=== PATIENT | female | born 1965 | race Caucasian/White ===

== ENCOUNTER → 2025-04-07 | Outpatient (CLI) | payer SELFPAY, OTHER ==
--- OUTSIDE RECORDS SUMMARY | 2025-04-07 06:59 | XMS RPT_ITS | CCD ---
Author Organization [facility] Care Team Providers Care Media Associate Name Role Phone Kashmir, Ritesh Unavailable Unavailable Kashmir, Ritesh Unavailable Unavailable Kashmir, Ritesh Unavailable Unavailable Kashmir, Ritesh Unavailable Unavailable Kashmir, Ritesh Unavailable Unavailable Kashmir, Ritesh Unavailable Unavailable HinesGreg more Unavailable Unavailable Kashmir, Ritesh Unavailable Unavailable Kashmir, Ritesh Unavailable Unavailable HinesGreg more Unavailable Unavailable JANNA TORRES-CEMPERATRIZ Unavailable [phone] DAVON HINES MD Unavailable Ernestina Toney RN Unavailable Unavailable GREG HINES MD Unavailable ORTEGA JURADO MD Unavailable ADALGISAALAINA Unavailable Unavailable DANIS HAYES Unavailable Unavailable Shruthi Hayes Unavailable Unavailable Sebastian HAYES MD Unavailable MARILYN JOHNSON Unavailable Unavailable Марина Perez Unavailable Unavailable ISABELLA NAVA MD Unavailable Micah Nava Unavailable Unavailable Holley TAYLOR, Erica Unavailable UnavailCHET Spence Unavailable Unavailable Thania TAYLOR, Miranda Unavailable Unavailable Unavailable Unavailable JANNA TORRES-EMPERATRIZ Kate Unavailable Unav ailable DAVON HINES Consulting Unavailable DUNCAN PABON MD Attending UnavailDUNCAN Spicer MD Primary Care UnavailDUNCAN Spicer MD Admitting Unavailabl e PROVIDER, UNKNOWN Consulting Unavailable PROVIDER, UNKNOWN Consulting Unavailable PROVIDER, UNKNOWN Consulting Unavailable Estefanía RESTREPO, Dr. Corona Attending Provider Deangelo RESTREPO, Dr. Giang Primary Care Provider [phone] Deangelo RESTREPODr. Giang Referring Provider Davon Hines Primary Care Unavailable Davon Hines Referring Unavailable Cj José Attending Unavailable Davon Hines Primary Care Unavailable Cj José Attending Unavailable Cj José Referring Unavailable Allergies Allergy Classification Reported Allergen(s) Allergy Type Date of Onset Reaction(s) Facility (13 sources) Acetaminophen / oxyCODONE Drug Allergy Nausea, Vomiting [facility] (13 sources) Wasp Stings (Renamed from Insect Stings) Swelling [facility] (1 source) Acetaminophen / oxyCODONE Drug Allergy [facility] (1 source) Acetaminophen Drug Allergy 5 Nausea/Vom/Diar [facility] (1 source) oxyCODONE Drug Allergy 5 Nausea/Vom/Diar [facility] (1 source) venom-wasp Allergy to substance 5 Angioedema [facility] (1 source) Acetaminophen Drug Allergy 5 [facility] (1 source) oxyCODONE Drug Allergy 5 [facility] (1 source) venom-wasp Drug allergy (disorder) 5 [facility] Medications Current Medications Medication Drug Class(es) Dates Sig (Normalized) Sig (Original) aspirin 81 mg delayed release oral tablet (14 sources) Platelet Aggregation Inhibitor, Nonsteroidal Anti-inflammatory Drug Start: 02-05-2025 take 1 tablet by mouth once daily Aspirin (Adult Aspirin Regimen) 81 mg tablet,delayed release (DR/EC) Active 81 mg PO daily February 05, 2025 12:00am carvedilol 6.25 mg oral tablet (1 source) alpha-Adrenergic Kimberly, beta-Adrenergic Kimberly Start: 02-05-2025 take 1 tablet by mouth twice daily at mealtime Carvedilol 6.25 mg tablet Active 6.25 mg PO TWICE A DAY February 05, 2025 12:00am must administer with a meal/food empagliflozin 25 mg oral tablet (1 source) Sodium-Glucose Cotransporter 2 Inhibitor Start: 02-05-2025 take 1 tablet by mouth once daily in the morning Empagliflozin (Jardiance) 25 mg tablet Active 25 mg PO EVERY MORNING February 05, 2025 12:00am sacubitril 49 mg / valsartan 51 mg oral tablet (2 sources) Angiotensin 2 Receptor Kimberly Start: 03-14-2025 Sacubitril-Valsart an (Entresto) 49-51 mg tablet Active 1 {tbl} PO DAILY March 14, 2025 2:05pm Start: 02-05-2025 End: 03-14-2025 Sacubitril-Valsartan (Entres to) 49-51 mg tablet Discontinued 1 {tbl} PO TWICE A DAY February 05, 2025 12:00am March 14, 2025 2:05pm spironolactone 25 mg oral tablet (20 sources) Aldosterone Antagonist Start: 10-12-2024 take 1 tablet by mouth once daily Spironolactone 25 mg tablet Active 25 mg PO daily February 05, 2025 12:00am Start: 04-06-2024 spironolactone 25 mg tablet ; 1 (one) Tablet daily for 90 days Quantity: 90 {Tablet} Refills: 1 Ordered: 06-Apr-2024 MD DAVON HINES Start: 06-Apr-2024 Start: 10-01-2023 spironolactone 25 mg tablet ; 1 (one) Tablet daily for 90 days Quantity: 90 {Tablet} Refills: 1 Ordered: 01-Oct-2023 MARTA SALDIVAR Start: 01-Oct-2023 Start: 09-16-2023 spironolactone 25 mg tablet ; 1 (one) Tablet daily for 90 days Quantity: 90 {Tablet} Refills: 0 Ordered: 16-Sep-2023 MARTA SALDIVAR Start: 16-Sep-2023 Start: 02-21-2020 End: 10-23-2020 take 2 tablets by mouth once daily Aldactone 25 MG Oral Tablet ; 2 (two) Tablet daily for 90 days Quantity: 180 {Tablet} Refills: 1 Ordered: 23-Oct-2020 BRANDON Monteiro Start: 21-Feb-2020 End: 23-Oct-2020 Status: Inactive Comments: May dispense generic Comment on above: May dispense generic Completed/Discontinued Medications Medication Drug Class(es) Dates Sig (Normalized) Sig (Original) acai maxwell extract 500 mg oral capsule (13 sources) take 3 capsules by mouth once daily ACAI MAXWELL, 500MG (Oral Capsule) ; 3 daily (500 MG) Status: Inactive amoxicillin 500 mg oral tablet (13 sources) Penicillin-class Antibacterial Start: 02-08-2015 End: 02-15-2015 take 1 tablet by mouth three times daily AMOXICILLIN, 500MG (Oral Tablet) ; 1 (one) Tablet three times daily for 7 days Quantity: 21 {Tablet} Refills: 0 Ordered: 17-May-2015 MD Sebastian HAYES Start: 08-Feb-2015 End: 15-Feb-2015 Status: Inactive Comments: meds to be dispensed in office Comment on above: meds to be dispensed in office ascorbic acid 250 mg oral tablet (13 sources) Vitamin C take 1 tablet by mouth once daily VITAMIN C, 250MG (Oral Tablet) ; 1 daily (250 MG) Status: Inactive atenolol 25 mg oral tablet (14 sources) beta-Adrenergic Kimberly Start: 10-12-2024 End: 02-05-2025 Atenolol 25 mg tablet Discontinued 25 mg PO February 05, 2025 12:00am February 05, 2025 9:23am Start: 09-21-2024 atenoloL 25 mg tablet ; 1 Tablet daily for 90 days Quantity: 90 {Tablet} Refills: 1 Ordered: 21-Sep-2024 MD DAVON HINES Start: 21-Sep-2024 Start: 04-06-2024 atenoloL 25 mg tablet ; 1 Tablet daily for 90 days Quantity: 90 {Tablet} Refills: 1 Ordered: 06-Apr-2024 MD DAVON HINES Start: 06-Apr-2024 Start: 10-01-2023 atenoloL 25 mg tablet ; 1 Tablet daily for 90 days Quantity: 90 {Tablet} Refills: 1 Ordered: 01-Oct-2023 MARTA SALDIVAR Start: 01-Oct-2023 Start: 06-30-2023 atenoloL 25 mg tablet ; 1 Tablet daily for 90 days Quantity: 90 {Tablet} Refills: 0 Ordered: 30-Jun-2023 MARTA SALDIVAR Start: 30-Jun-2023 azithromycin 250 mg oral tablet (13 sources) Macrolide Antimicrobial Start: 01-13-2017 End: 01-18-2017 Azithromycin 250 MG Oral Tablet ; 2 (two) Tablets on day one then 1 daily for 4 days for 5 days Quantity: 6 {Tablet} Refills: 0 Ordered: 19-Jan-2017 MD ORTEGA JURADO Start: 13-Jan-2017 End: 18-Jan-2017 Status: Inactive Comments: medication to be dispensed in office Comment on above: medication to be dis pensed in office calcium carbonate 1500 mg oral tablet (13 sources) take 1 tablet by mouth once daily CALCIUM 600, 1500 (600 Ca)MG (Oral Tablet) ; 1 daily (1500 (600 Ca) MG) Status: Inactive Cod Liver Oil 5000-500 UNIT/5ML Oral Oil (13 sources) Cod Liver Oil 5000-500 UNIT/5ML Oral Oil ; 1 Tbsp daily (5000-500 UNIT/5ML) Status: Inactive DAILY MULTIPLE VITAMINS (Oral Tablet) (13 sources) take 1 tablet by mouth once daily DAILY MULTIPLE VITAMINS (Oral Tablet) ; 1 daily Status: Inactive Comments: Melaleuca Comment on above: Melaleuca diphenhydrAMINE hydrochloride 25 mg oral tablet (13 sources) Histamine-1 Receptor Antagonist Start: 05-17-2015 End: 05-24-2015 take 1 tablet by mouth four times daily as needed BENADRYL, 25MG (Oral Tablet) ; 1 (one) Tablet four times daily, as needed for 7 days Quantity: 21 {Tablet} Refills: 0 Ordered: 03-Feb-2016 MD ORTEGA JURADO Start: 17-May-2015 End: 24-May-2015 Status: Inactive Comments: Medication taken as needed. take at bedtime Comment on above: Medication taken as needed. take at bedtime losartan potassium 50 mg oral tablet (13 sources) Angiotensin 2 Receptor Kimberly take 0.5 tablet by mouth once daily as needed Losartan Potassium 50 MG Oral Tablet ; 1/2 daily (50 MG) Status: Inactive Comments: as needed Comment on above: as needed Multivitamin Adult Oral Tablet (13 sources) take 1 tablet by mouth once daily Multivitamin Adult Oral Tablet ; 1 daily Status: Inactive OMEGA-3-6-9 (Oral Capsule) (13 sources) take 1 capsule by mouth once daily OMEGA-3-6-9 (Oral Capsule) ; 1 daily Status: Inactive predniSONE 10 mg oral tablet (13 sources) Start: 05-17-2015 End: 05-29-2015 take 1 tablet by mouth once daily at mealtime PREDNISONE (CANDELARIO), 10MG (Oral Tablet) ; 1 (one) Tablet take as directed for 12 days Quantity: 30 {Tablet} Refills: 0 Ordered: 03-Feb-2016 MD ORTEGA JURADO Start: 17-May-2015 End: 29-May-2015 Status: Inactive Comments: Days 1,2,3 = 4 tabs daily; Days 4, 5, 6 = 3 tabs daily; Days 7, 8, 9 = 2 tabs daily; Days 10,11,12 = 1 tab daily; Take with meals. May take each day's dose at one time.meds to be dispensed in office Comment on above: Days 1,2,3 = 4 tabs daily; Days 4, 5, 6 = 3 tabs daily; Days 7, 8, 9 = 2 tabs daily; Days 10,11,12 = 1 tab daily; Take with meals. May take each day's dose at one time.meds to be dispensed in office Vitamin B6 250 MG Oral Tablet (13 sources) take 1 tablet by mouth once daily Vitamin B6 250 MG Oral Tablet ; 1 daily (250 MG) Status: Inactive Problems Active Problems Problem Classification Problem Date Documented Date Episodic/Chronic Administrative/social admission (20 sources) Issue of repeat prescriptions 10-05-2011 Episodic Allergic reactions (13 sources) Contact dermatitis; Translations: [Unspecified contact dermatitis, unspecified cause] 05-17-2015 Episodic Cardiac dysrhythmias (3 sources) Palpitations; Translations: [Palpitations] Onset: 03-27-2025 02-05-2025 Episodic Diabetes mellitus without complication (20 sources) Hyperglycemia; Translations: [Hyperglycemia, unspecified] Onset: 11-26-2012 04-16-2023 Episodic Comment on above: HGB A1C = 5.8 () down from 5.9. Disorders of lipid metabolism (20 sources) Hyperlipidemia; Translations: [Hyperlipidemia, unspecified] Onset: 11-26-2012 04-16-2023 Chronic Essential hypertension (20 sources) Benign hypertension; Translations: [Essential (primary) hypertension] Onset: 03-27-2025 06-30-2023 Chronic Comment on above: Stable. Heart valve disorders (20 sources) Mitral valve regurgitation; Translations: [Nonrheumatic mitral (valve) insufficiency] 04-16-2023 Chronic Comment on above: on echo. No murmur. Malaise and fatigue (3 sources) Fatigue; Translations: [Other fatigue] Onset: 03-27-2025 02-05-2025 Episodic Osteoarthritis (13 sources) Osteoarthritis of left knee joint; Translations: [Unilateral primary osteoarthritis, left knee] 04-16-2023 Chronic Other non-traumatic joint disorders (20 sources) Pain in left knee; Translations: [Pain in joint, lower leg] 04-16-2023 Episodic Other nutritional; endocrine; and metabolic disorders (20 sources) Body mass index 40+ - severely obese; Translations: [Morbid (severe) obesity due to excess calories] 04-16-2023 Chronic Enedina-; endo-; and myocarditis; cardiomyopathy (except that caused by tuberculosis or sexually transmitted disease) (20 sources) Dilated cardiomyopathy; Translations: [Dilated cardiomyopathy] Onset: 03-27-2025 04-16-2023 Chronic Comment on above: S/P heart cath.Stabl e. (non ischemic) Pneumonia (except that caused by tuberculosis or sexually transmitted disease) (20 sources) Community acquired pneumonia; Translations: [Pneumonia, unspecified organism] 01-29-2017 Episodic Residual codes; unclassified (20 sources) Obstructive sleep apnea syndrome; Translations: [Obstructive sleep apnea (adult) (pediatric)] Onset: 10-21-2017 10-28-2017 Chronic Comment on above: Rx CPAP @ 9 cm H2O Skin and subcutaneous tissue infections (13 sources) Cellulitis of face; Translations: [Cellulitis of face] 02-08-2015 Episodic Unclassified (1 source) Unknown / UNK(Unknown) Onset: 09-14-2017 Unclassified (13 sources) HYPERTENSION - Note for HYPERTENSION: Last visit was 01/29/17.. 05-20-2017 Past or Other Problems Problem Classification Problem Date Documented Date Episodic/Chronic Coronary atherosclerosis and other heart disease (20 sources) Coronary atherosclerosis and other heart disease 12-03-2021 Headache; including migraine (20 sources) Headache; including migraine 04-16-2023 Unclassified (1 source) SOB,ANGINA,CAD Onset: 09-14-2017 Unclassified (13 sources) !Patient notification of lab results - MARTA Estrada. The test(s) that you had done were/was blood work. Your tests showed the following abnormalities: slightly high cholesterol and blood sugar . You should call our office if you have any questions. Please follow up as scheduled. Note for !Patient notification of lab results : Please work on your diet to bring down cholesterol. If you had eaten before your appointment, the blood sugar is not a big deal. If you had not, we need to do further testing. Thanks! 04-19-2023 Unclassified (7 sources) [ADDITIONAL REASON] Obstructive Sleep Apnea - The last clinic visit was 9 month(s) ago. Note for Obstructive sleep apnea: wearing CPAP machine. 04-16-2023 Unclassified (9 sources) HYPERTENSION - There has been no associated chest pain. 08-05-2022 Unclassified (9 sources) [ADDITIONAL REASON] Immunization - Immunizations discussed with patient/ parent: yes. Note for For immmunization: Pt does not want a flu shot. 08-05-2022 Unclassified (8 sources) HYPERTENSION - Note for HYPERTENSION: No headaches, dizzy spells, swelling of ankles, chest pain or shortness of breath. No daily cough 12-03-2021 Unclassified (12 sources) [ADDITIONAL REASON] Obstructive Sleep Apnea - The last clinic visit was 8 month(s) ago. Note for Obstructive sleep apnea: Uses Machine every night 12-03-2021 Unclassified (13 sources) !Patient notification of lab results - MARTA Estrada. The test(s) that you had done were/was blood work. The results of your testing were normal . You should call our office if you have any questions. Please follow up as scheduled. Note for !Patient notification of lab results : Both blood sugar and cholesterol were borderline. If you were fasting, we need to recheck your sugar. If not, it is not a concern. Otherwise, work on diet and exercise to keep these under control. All other labs were normal. Thanks! 04-24-2021 Unclassified (20 sources) HYPERTENSION - Note for HYPERTENSION: No headaches, dizzy spells, swelling of ankles, chest pain or shortness of breath. No daily cough. 02-21-2020 Unclassified (8 sources) [ADDITIONAL REASON] Obstructive Sleep Apnea - The last clinic visit was 7 month(s) ago. Note for Obstructive sleep apnea: Has more energy and uses CPaP machine every night 02-21-2020 Unclassified (13 sources) !Patient notification of lab results - Dr. Hines. The test(s) that you had done were/was an iron le ainsley, a CBC (checks for anemia and infection), a CMP (kidneys, liver, nutrition, sugar), a lipid panel (cholesterol and triglycerides) and a TSH (thyroid). The results of your testing were normal . Please note that we have included copies of your results, continue your current medication/therapy and follow up as scheduled. 07-25-2019 Unclassified (13 sources) [ADDITIONAL REASON] Obstructive Sleep Apnea - Note for Obstructive sleep apnea: Uses Machine every night. Sees Dr. Courtney 07-24-2019 Unclassified (6 sources) [ADDITIONAL REASON] Cardiomyopathy, Dilated - Note for Dilated cardiomyopathy: See Cardio once a year. 07-24-2019 Unclassified (4 sources) Obstructive Sleep Apnea - The last clinic visit was 5 month(s) ago. Note for Obstructive sleep apnea: feels good with CPAP. 01-16-2019 Unclassified (4 sources) [ADDITIONAL REASON] Cardiomyopathy, Dilated 01-16-2019 Unclassified (13 sources) !Patient notification of lab results - Deangelo. The test(s) that you had done were/was an echocardiogram. The results of your testing were stable for your medical condition (the strength of the heart has improved from 1 year ago) . Please continue your current medication/therapy and follow up as scheduled. 10-19-2018 Unclassified (13 sources) !Patient notification of lab results - Marty. The test(s) that you had done were/was a heart cath (echo stress test). Your tests showed the following abnormalities: Dilated cardiomyopathy, which is not the Gabe cardiomyopathy . Please continue your current medication/therapy. 02-04-2018 Unclassified (7 sources) [ADDITIONAL REASON] Sleep Disorders - The sleep disorder is characterized as obstructive sleep apnea. Symptoms do not include excessive daytime sleepiness. 02-02-2018 Unclassified (6 sources) [ADDITIONAL REASON] Transition into care - The patient is transitioning into care from a hospital ([facility] 09-14 to ) and a summary of care was reviewed. 10-28-2017 Unclassified (13 sources) recheck - other illness (pneumonia). 01-29-2017 Unclassified (13 sources) cough - The onset of the cough has been sudden and has been occurring in a persistent pattern for 4 days. The course has been increasing. The cough is characterized as productive of mucoid sputum (green) and productive of purulent sputum. The symptoms have been associated with dyspnea, fever (at times), headache, hoarseness, runny nose and wheezing, while the symptoms have not been associated with chest pain. Note for cough: C/o bilateral earache and sinus pressure 01-13-2017 Unclassified (13 sources) HYPERTENSION - The symptoms have been associated with edema (ankles in warm weather). Note for HYPERTENSION: No headaches, dizzy spells, chest pain, or shortness of breath. 04-16-2016 Unclassified (13 sources) Rash - The rash has been occurring for 5 days. The rash was first seen on the face. Note for Rash: Used Respiratory blend oils to help her snoring. Thinks she reacted to it. Swelling and drainage. 05-17-2015 Unclassified (13 sources) !Patient notification of lab results 1 - Florentino. Note for !Patient notification of lab results 1: Lex, your labs look very good both with cholesterol and sugar. Hope your infection is all better. Let us know if not. 02-11-2015 Unclassified (9 sources) Routine Check - Patient is here to review the medical problem(s) of hypertension. 02-08-2015 Unclassified (9 sources) [ADDITIONAL REASON] Facial Pain - Symptoms include facial swelling. Facial pain is located in the right jaw (cheek). Onset was 2 day(s) ago. Note for Facial pain: pt wears dentures. 02-08-2015 Unclassified (13 sources) Routine Check - Patient is here to review the medical problem(s) of hypertension. The patient feels well with no complaints. Note for Routine Check : . 01-04-2014 Unclassified (13 sources) HYPERTENSION - Note for HYPERTENSION: No headaches or dizzy spells. Does have occasional swelling of ankles especially on hot weather days 06-30-2013 Unclassified (13 sources) !Patient notification of lab results 1 - Dr. Nava. The test(s) that you had done were/was an A1C (three month sugar average), a CBC (checks for anemia and infection), a CMP (kidneys, liver, nutrition, sugar), a lipid panel (cholesterol and triglycerides) and a TSH (thyroid). Your tests showed the following abnormalities: elevated non HDL cholesterol . (your A1C of 5.9, although not abnormal, puts you in the pre-diabetic range) Please review the enclosed special instruction sheet(s) on non HDL cholesterol and pre-diabetes. Please note that we have included copies of your results, continue your current medication/therapy and follow up as scheduled. 11-26-2012 Unclassified (13 sources) HYPERTENSION - Note for HYPERTENSION: No headaches or dizzy spells. 10-12-2011 Unclassified (13 sources) recheck - hypertension and reports no headaches. Note for recheck: NO DIZZY SPELLS. FEELS GOOD 09-15-2010 Unclassified (6 sources) Obstructive Sleep Apnea - The last clinic visit was 9 month(s) ago. Note for Obstructive sleep apnea: wearing CPAP machine. 04-16-2023 Unclassified (5 sources) Obstructive Sleep Apnea - The last clinic visit was 7 month(s) ago. Note for Obstructive sleep apnea: Has more energy and uses CPaP machine every night 02-21-2020 Unclassified (12 sources) [ADDITIONAL REASON] HYPERTENSION - Note for HYPERTENSION: No headaches, dizzy spells, swelling of ankles, chest pain or shortness of breath. No daily cough. 02-21-2020 Unclassified (7 sources) Cardiomyopathy, Dilated - Note for Dilated cardiomyopathy: See Cardio once a year. 07-24-2019 Unclassified (9 sources) Cardiomyopathy, Dilated 01-16-2019 Unclassified (9 sources) [ADDITIONAL REASON] Obstructive Sleep Apnea - The last clinic visit was 5 month(s) ago. Note for Obstructive sleep apnea: feels good with CPAP. 01-16-2019 Unclassified (6 sources) Sleep Disorders - The sleep disorder is characterized as obstructive sleep apnea. Symptoms do not include excessive daytime sleepiness. 02-02-2018 Unclassified (7 sources) Transition into care - The patient is transitioning into care from a hospital ([facility] 09-14 to ) and a summary of care was reviewed. 10-28-2017 Unclassified (4 sources) Facial Pain - Symptoms include facial swelling. Facial pain is located in the right jaw (cheek). Onset was 2 day(s) ago. Note for Facial pain: pt wears dentures. 02-08-2015 Unclassified (4 sources) [ADDITIONAL REASON] Routine Check - Patient is here to review the medical problem(s) of hypertension. 02-08-2015 Unclassified (7 sources) [ADDITIONAL REASON] Obstructive Sleep Apnea - The last clinic visit was 6 month(s) ago. Note for Obstructive sleep apnea: wearing CPAP 04-06-2024 Unclassified (5 sources) [ADDITIONAL REASON] HYPERTENSION - Note for HYPERTENSION: No headaches, dizzy spells, swelling of ankles, chest pain or shortness of breath. No daily cough 12-03-2021 Unclassified (3 sources) Obstructive Sleep Apnea - The last clinic visit was 6 month(s) ago. Note for Obstructive sleep apnea: wearing CPAP 04-06-2024 Unclassified (4 sources) Immunization - Immunizations discussed with patient/ parent: yes. Note for For immmunization: Pt does not want a flu shot. 08-05-2022 Unclassified (4 sources) [ADDITIONAL REASON] HYPERTENSION - There has been no associated chest pain. 08-05-2022 Unclassified (1 source) Obstructive Sleep Apnea - The last clinic visit was 8 month(s) ago. Note for Obstructive sleep apnea: Uses Machine every night 12-03-2021 Results Test Name Value Interpretation Reference Range Facility Cardiology Visit Reporton Cardiology Visit Report [facility] [address] [place] [address] OFFICE VISIT Date of Service: 03/14/25 MR#: [id number] Acct: [id number] Name: LEX JOHNSON Rep #: [id number] : 1965 Provider: Dr. Cj José MD Age/Sex: 59/F Location: [facility] Status: Signed HPI HPI History of Present Illness Details: Pleasant 59-year-old lady with a history of a nonischemic cardiomyopathy initially diagnosed in 2017 with an echocardiogram which at that time demonstrated an ejection fraction of approximately 45 to 50%. She was put on medication but it appears that she discontinued taking the medication. She was focusing on her who had not been to well. They went to [facility] for treatment for her who had multiple myeloma and a repeat echocardiogram was done at that time which demonstrated reduced ejection fraction the exact EF is not known. 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 The ejection fraction at that time was 35 to 40%. More recently she has had some palpitations and had an event monitor done which demonstrated an average heart rate of 69 bpm a low heart rate of 49 and maximal heart rate 149 bpm. She did have some episodes of nonsustained ventricular tachycardia. She has been placed on guideline directed medical therapy with beta-kimberly and Entresto spironolactone as well as Jardiance which she has been compliant with. She is also on aspirin. She denies any dizziness or diaphoresis near syncope or syncope. Her physical exam today is unremarkable her electrocardiogram today here demonstrates sinus rhythm with a rate of 65 bpm and poor R wave progression. Intake Vital Signs 03/14/25 14:09 Height 5 ft 2 in Weight: 280 lb BMI 51.2 BP 118/58 L Blood Pressure Location Lt brachial Position Sitting Respiration 16 Pulse 65 Pulse Source Monitor Intake Visit Reasons: CARDIOMYOPOTHY (DUMANDAN) Student Life Vice President Required: No Is patient in pain?: No Allergies venom-wasp (wasp sting) Allergy (Severe, Verified 03/14/25 14:05) Angioedema acetaminophen (From Percocet) Allergy (Intermediate, Verified 03/14/25 14:05) Nausea/Vom/Diarrhea oxycodone (From Percocet) Allergy (Intermediate, Verified 03/14/25 14:05) Nausea/Vom/Diarrhea Medications ???Medication ???Instructions ???Recorded ???Confirmed ???Type empagliflozin 25 mg tablet 25 mg PO QAM 02/05/25 03/14/25 His tory (Jardiance) spironolactone 25 mg tablet 25 mg PO QDAY 02/05/25 03/14/25 Hi story carvedilol 12.5 mg tablet 12.5 mg PO BID #120 tabs 03/14/25 03/14/25 Rx sacubitril 49 mg-valsartan 51 mg 1 tab PO DAILY 03/14/25 03/14/25 H istory tablet (Entresto) Have you fallen in the past year?: No PFSH Medical History SHOLA (obstructive sleep apnea) Hyperlipidemia Dilated cardiomyopathy Essential (primary) hypertension Palpitations Fatigue Surgical History History of cholecystectomy Hx of hernia repair History of total knee arthroplasty Family History Mother Myocardial infarction Sudden cardiac Social History Smoking Status: Never smoker alcohol intake: never substance use type: does not use ROS Const Const: Positive for fatigue and weakness; Negative for headache(s), daytime sleepiness or difficulty sleeping ENT ENT: Positive for dizziness; Negative for headache(s) or Nosebleed/epistaxis Cardio Chest Pain: No Palpitations: Yes Edema: None Resp Respiratory: Negative for SOB with activity, SOB at rest, SOB orthopnea SOB lying down or Cough GI GI: Negative nausea, vomiting or heartburn Neuro Neuro: Positive for dizziness and weakness; Negative for lightheadedness, near syncope or headache(s) Endo Endo: Positive for fatigue Cardiology Exam Const Appearance: cooperative, healthy appearing, no acute distress, well developed and well groomed Nutritional Appearance: average body habitus and well nourished Orientation: alert, awake and oriented x3 Head Head: normal to inspection, normocephalic and atraumatic Ears: hearing grossly normal bilaterally and external ears normal Nose: external nose normal, nares normal, nasal mucous membranes and turbinates normal, septum normal and no nasal discharge Face and Sinus: face symmetric Mouth: oral mucosae normal, tongue normal, oropharynx normal and moist mucous membranes Teeth and gingiva: dentition normal Throat: posterior oropharynx normal, tonsils amanda (more content not included)... Normal [facility] Laboratory - Chemistry and C hemistry - challengeon 04-16-2023 Albumin BCP dye [Mass/Vol] 4.0 g/dL Normal 3.2 - 4.8 g/dL [facility], [facility]. Albumin/Globulin [Mass ratio] 1.3 {ratio} Normal 0.9 - 1.6 {ratio} [facility].; [facility], [facility]. ALP [Catalytic activity/Vol] 73 U/L Normal 38 - 126 U/L [facility].; [facility]. ALT No additional P-5'-P [Catalytic activity/Vol] 41 U/L Normal 10 - 49 U/L [facility]. ALT With P-5'-P [Catalytic activity/Vol] 41 U/L Normal 10 - 49 U/L [facility] AST [Catalytic activity/Vol] 24 U/L Normal 8 - 34 U/L [facility]. AST With P-5'-P [Catalytic activity/Vol] 24 U/L Normal 8 - 34 U/L [facility] Bilirubin [Mass/Vol] 1.50 mg/dL Abnormal 0.20 - 1.20 mg/dL [facility] Calcium [Mass/Vol] 9.4 mg/dL Normal 8.7 - 10. 4 mg/dL [facility], [facility]. Chloride [Moles/Vol] 106 mmol/L Normal 98 - 11 0 meq/L [facility]. Cholesterol [Mass/Vol] 201 mg/dL Abnormal 50 - 199 mg/dL [facility]. Cholesterol in HDL [Mass/Vol] 34 mg/dL Abnormal 40 - 59 mg/dL [facility]. Cholesterol in LDL [Mass/Vol] 131 mg/dL Abnormal 0 - 129 mg/dL [facility]. CO2 [Moles/Vol] 23 mmol/L Normal 22 - 32 meq/L [facility], [facility]. Creatinine [Mass/Vol] 0.67 mg/dL Normal 0.50 - 1.20 mg/dL [facility], [facility]. GFR/1.73 sq M.predicted among blacks MDRD (S/P/Bld) [Vol rate/Area] mL/min/{1.73_m2} Normal [facility]. Work Phone: GFR/1.73 sq M.predicted among non-blacks MDRD (S/P/Bld) [Vol rate/Area] mL/min/{1.73_m2} Normal [facility].; [facility], [facility]. Work Phone: Globulin (S) [Mass/Vol] 3.1 g/dL Normal 1.5 - 3.8 g/dL [facility], [facility] Glucose [Mass/Vol] 112 mg/dL Abnormal 70 - 110 mg/dL [facility], [facility] Iron [Mass/Vol] 78 ug/dL Normal 50 - 170 ug/dL [facility].; [facility], [facility]. Potassium [Moles/Vol] 4.0 mmol/L Normal 3.5 - 5.0 meq/L [facility]. Protein [Mass/Vol] 7.1 g/dL Normal 5.7 - 8.2 g/dL [facility], [facility]. Sodium [Moles/Vol] 139 mmol/L Normal 136 - 145 meq/L [facility], [facility]. Triglyceride [Mass/Vol] 179 mg/dL Abnormal 3 - 149 mg/dL [facility], [facility]. TSH Qn 1.617 m[IU]/L Normal 0.550 - 4.780 m[iU]/mL [facility], [facility] Urea nitrogen [Mass/Vol] 18.0 mg/dL Normal 8.0 - 22.0 mg/dL [facility] Urea nitrogen/Creatinine [Mass ratio] 26.9 {ratio} Abnormal 10.0 - 22.0 {ratio} [facility] Laboratory - Hematology and Cell countson 04-16-2023 Basophils (Bld) [#/Vol] 0.1 {10^3/mcL} Normal 0.0 - 0.3 {10^3/mcL} [facility].; [facility], [facility] Work Phone: Basophils/100 WBC (Bld) 0.7 % Normal 0.0 - 2.5 % [facility].; [facility], [facility] Work Phone: Eosinophils (Bld) [#/Vol] 0.3 {10^3/mcL} Normal 0.0 - 0.7 {10^3/mcL} [facility].; [facility], [facility] Work Phone: Eosinophils/100 WBC (Bld) 3.6 % Normal 0.0 - 6.0 % [facility].; [facility], [facility] Work Phone: Erythrocyte distribution width (RBC) [Ratio] 14.0 % Normal 11.5 - 15.5 % [facility].; [facility], [facility] Hematocrit (Bld) [Volume fraction] 41.5 % Normal 34.0 - 46.0 % [facility].; [facility], [facility] Hemoglobin (Bld) [Mass/Vol] 13.7 g/dL Normal 12.0 - 16.0 g/dL [facility].; [facility], [facility] Lymphocytes (Bld) [#/Vol] 2.0 {10^3/mcL} Normal 0.9 - 4.3 {10^3/mcL} [facility].; [facility], [facility] Work Phone: Lymphocytes/100 WBC (Bld) 24.6 % Normal 20.0 - 40.0 % [facility].; [facility], [facility]. Work Phone: MCH (RBC) [Entitic mass] 29.8 pg Normal 27.0 - 33.0 pg [facility].; [facility], [facility]. MCHC (RBC) [Mass/Vol] 32.9 g/dL Normal 32.0 - 36.0 g/dL [facility].; [facility], [facility]. MCV (RBC) [Entitic vol] 90.8 fL Normal 80.0 - 99.0 fL [facility].; [facility], [facility]. Monocytes (Bld) [#/Vol] 0.5 {10^3/mcL} Normal 0.1 - 1.4 {10^3/mcL} [facility], [facility].; [facility], [facility]. Work Phone: Monocytes/100 WBC (Bld) 6.4 % Normal 2.0 - 13.0 % [facility].; [facility], [facility]. Work Phone: Neutrophils (Bld) [#/Vol] 5.3 {10^3/mcL} Normal 2.3 - 8.1 {10^3/mcL} [facility].; [facility] Work Phone: Neutrophils/100 WBC (Bld) 64.7 % Normal 50.0 - 75.0 % [facility].; [facility], [facility]. Work Phone: Platelet mean volume (Bld) [Entitic vol] 8.2 fL Normal 6.6 - 10.5 fL [facility].; [facility], [facility]. Platelets (Bld) [#/Vol] 230 {10^3/mcL} Normal 150 - 450 {10^3/mcL} [facility], [facility].; [facility] RBC (Bld) [#/Vol] 4.57 {10^6/mcL} Normal 4.10 - 5.30 {10^6/mcL} [facility] [employer] [facility] [employer] [facility] WBC (Bld) [#/Vol] 8.2 {10^3/mcL} Normal 4.5 - 10 .8 {10^3/mcL} [facility] [employer] [facility], [employer]. No Panel Informationon 04-16 Basophil, Absolute 0.1 {10^3/mcL} Normal 0.0 - 0 .3 {10^3/mcL} [facility] [place] [facility] [employer] [facility] Work Phone: Electrolyte Balance 10.0 meq/L Normal 4.0 - 15 .0 meq/L [facility], [employer] [facility] [employer] [facility] Eosinophil, Absolute 0.3 {10^3/mcL} Normal 0.0 - 0.7 {10^3/mcL} [facility] [employer] [facility] [employer] Work Phone: Lymphocyte, Absolute 2.0 {10^3/mcL} Normal 0.9 - 4.3 {10^3/mcL} [facility] [employer] [facility] [employer] Work Phone: Monocyte, Absolute 0.5 {10^3/mcL} Normal 0.1 - 1 .4 {10^3/mcL} [facility] [employer] [facility] [employer] [facility] [employer] Work Phone: Neutrophil, Absolute 5.3 {10^3/mcL} Normal 2.3 - 8.1 {10^3/mcL} [employer] [facility] [employer] Work Phone: HGB HCTon 07-09-2021 Hematocrit (Bld) [Volume fraction] 36.8 % Low 37.0-47.0 [facility] Comment on above: Performed By: #### H H ####[address] [address] Hemoglobin (Bld) [Mass/Vol] 12.4 g/dL Normal 12.0-16.0 [facility] Comment on above: Performed By: #### H H ####[address] [address] Mayra 07-08-2021 YOANNA JOHNSONLEX Female [id number] Ordering physician: ADM ALMEIDA 3WA [id number] Attending physician: Nick Carvajal V. 1965 56 DOS: Anesthesia Nerve Block - Procedure Notes for Blocks Block Location: Bilateral Patient Position: Supine Type of Block Anesthesia: Adductor Canal Procedure to be Performed: tka Surgeon: Nick Carvajal Time Out Performed: Yes Landmarks Identified: Yes Block Sedation: Versed (5mg iv) Monitors In Use: Pulse Oximetry, End Tidal CO2, NIBP, EKG Vitals Signs Throughout: Yes Sterile Prep and Drape: Chloraprep, Sterile Gloves, Mask, Sterile Towels Type of Needle: 4 inch-20g Echogenic Sonosite Images Saved: Yes Local Anesthetic Used: 0.5% Marcaine MPF Volume Local Anesthetic Used: 30mL Total (15ml each side) Aspiration negative prior to each incremental injection: Yes Outcome: Tolerated Procedure, No Complications 07/08/21 1156 Dictated By: Sal Sanchez DO Electronically Signed Date/Time: 07/08/21 1157 Normal [facility] KNEE-LEFT 1 OR 2 VIEWSon KNEE-LEFT 1 OR 2 VIEWS ALEXBARTOLOMEISIAAS Female [id number] Ordering physician: Nick Carvajal V. LOC:3WA [id number] Attending physician: Nick Carvajal V. 1965 56 DOS: 07/08/21 Acc#: [id number] Exam/Proc: KNEE-LEFT 1 OR 2 VIEWS Dept: RADIOLOGY EXAMINATION: TWO XRAY VIEWS OF THE LEFT KNEE 07/08/2021 3:40 pm COMPARISON: None. HISTORY: ORDERING SYSTEM PROVIDED HISTORY: TECHNOLOGIST PROVIDED HISTORY: Reason for Exam: Post-op FINDINGS: The patient is status post left total knee arthroplasty. There is no evidence of hardware complication. There are expected postoperative changes relating to soft tissue swelling, subcutaneous emphysema, and air within the knee joint. Overlying skin alfonso are noted. IMPRESSION: 1. Left total knee arthroplasty without evidence of hardware complication. 2. Expected postoperative change. Electronically signed By Mauri Lord DO 07/08/2021 3:43:48 PM EST Workstation ID : [id number] REPORT SIGNATURE ON FILE Electronically Signed Date/Time: 07/08/211542 Dictated Date/time: 07/08/211542 CC: [facility] KNEE-RIGHT 1 OR 2 VIEWSon KNEE-RIGHT 1 OR 2 VIEWS LEX JOHNSON Female [id number] Ordering physician: Nick Carvajal V. LOC:3WA [id number] Attending physician: Nick Carvajal V. 1965 56 DOS: 07/08/21 Acc#: [id number] Exam/Proc: KNEE-RIGHT 1 OR 2 VIEWS Dept: RADIOLOGY EXAMINATION: TWO XRAY VIEWS OF THE RIGHT KNEE 07/08/2021 3:40 pm COMPARISON: None. HISTORY: ORDERING SYSTEM PROVIDED HISTORY: TECHNOLOGIST PROVIDED HISTORY: Reason for Exam: Post-op FINDINGS: AP and lateral view show overlying skin clips and intact right knee prosthesis in functional position. Subcutaneous emphysema and fluid within the suprapatellar bursa is appreciated. IMPRESSION: Patient status post total right knee arthroplasty. Electronically signed By Mauri Dill DO 07/08/2021 3:42:51 PM EST Workstation ID : [id number] REPORT SIGNATURE ON FILE Electronically Signed Date/Time: 07/08/211541 Dictated Date/time: 07/08/211541 CC: [facility] MR OPalysa 07-08-2021 MR OP Patient name: LEX JOHNSON MR#: [id number] Location: [facility] Acc#: [id number] Admit Date: 07/08/21 : 1965 Age: 56 Sex: F Dictated By: Nick Carvajal MD Signing Physician: Nick Carvajal MD DICTATED BY: Nick Carvajal M.D. SIGNING PHYSICIAN: DATE OF SERVICE: 07/08/2021 ATTENDING SURGEON: Nick Carvajal MD. TABLE GAMES FLOOR SUPERVISOR: Jalil Brown PA-C. PREOPERATIVE DIAGNOSIS: Bilateral knee degenerative joint disease. POSTOPERATIVE DIAGNOSIS: Bilateral knee degenerative joint disease. PROCEDURE: Bilateral total knee arthroplasty. INDICATIONS: A 56-year-old female with severe tricompartmental DJD. Failed nooperative treatment. Presenting for elective total knee arthroplasty. Risks, benefits, and potential complications reviewed with her. Informed consent was obtained. DESCRIPTION OF PROCEDURE: The patient was taken to the operating room and placd in supine position. Given general anesthetic. Nonsterile proximal thigh tourniquet was placed on both lower extremities. They were both prepped and draped in usual sterile fashion at the same time. Did the left side first. Leg was exsanguinated. Tourniquet was inflated to 300 mmHg. Total tourniquet time for the left side was 71 minute. The right side was approximately 80. Anterior midline incision was made on the knee with a medial parapatellar arthrotomy. The Journey II system from [employer] was used. The intramedullary guide used on the femur and the tibia. A +0 distal femoral cut was made. The femur sized to a 3. The size 3 cutting block was placed and the sequential cuts were made. A 10 mm reference was made laterally on the tibia. A 4 degree posterior slope cut was made on the tibia. Extension gap was adequate. Remnants of the menisci were excised. Soft tissue release was done medially. A flat cut was made with the freehand tchnique on the under surface of the patella. Sized to a 32 diameter. The 3 pegs were drilled on the patella. It tracked very well. Capsule was injected with 15 mL of Marcaine with epinephrine. Pulsatile irrigation was used throughout the procedure and to prepare for cementing. The tibia sized to a 3. It was pinned into place and the punch was used on the tibia. Antibiotic cobalt cement was used to cement in the size 3 tibial tray, followed by the 3 Oxinium femoral component. A temporary 11 spacer was placed while the cement hardened. The patella was cemented into place also. The Irrisept chlorhexidine irrigation was also used at various stages of the procedure. Excess cement was removed from the wound both before and after hardening. After final inspection for cement debris, a permanent 10 [address] was [address]. Final irrigation was done. The extensor mechanism was reapproximated with interrupted #1 Vicryl sutures. Running force with running #2 Quill. A 2-0 Vicryl in the Subco and alfonso on skin. Active code peek wound VAC dressing were applied. Temporary sterile bandage was applied and went to the right side. Same tourniquet pressure. Anterior midline incision with a medial parapatellar arthrotomy also. Intramedullary guide on the femur and the tibia. Did +0 cuts on the femur again. A 10 mm reference was made laterally on the tibia also. The same cuts and sequence was followed. A 32 patella was used also the tibia and the femur both sized to a 3 again. During cementing a temporary 12 spacer was used. At the end, we ended-up going up to a 13 actually. Just had a little more laxity on the right side, then on the left, but there were no additional cuts. She was closed in the same manner on the right side. Same bandage and Acticoat and PIERRE wound VAC dressing. Patella tracked well on the right side also. PA was integral in the performance of the procedure, participated in all aspect including helping with exposure, helped to remove bone fragments, excess cement, facilitated implantation, participate in the closure. IZABEL @ 14:51 @ 16:00 # [id number] _ Nick Carvajal M.D. Electronically Signed Date/Time: 07/09/211728 Electronically Signed Date/Time: 07/09/211728 [facility] PCM.CONSon 07-08-2021 PCM.CONS LEX JOHNSON Female [id number] Attending provider: [address] [id number] Nick Carvajal V. 1965 56 DOS: Medical Consultation - Date of Service Date of Service: 07/08/21 - History of Present Illness History of Present Illness: This is a 56-year-old female who underwent a bilateral total knee arthroplasty earlier today we are asked to consult for medical management follow-up. She is just returned from anesthesia is currently sleepy but otherwise alert and oriented she reports no significant concerns at this point in time pain is very minimal no nausea no vomiting or shortness of breath. She does have a history of dilated cardiomyopathy did undergo testing several years ago has not been seeing a body component engineer routinely but is being managed by primary care and has been stable - Review of Systems Review of Systems: A twelve point review of systems was performed, is negative, except as stated above. - Past Medical/Surgical History General History: Yes: Hypertension Denies: Diabetes, CAD, Myocardial Infarction, Congestive Heart Failure, AsthmCOPD, CVA, Seizures, Migraines, Anxiety, Depression Cardiovascular: Yes: Hypertension, Other (Cardiomyopathy) No: CAD, CHF, AL, Angina, Hypercholesterolemia, Arrhythmia, Coronary Stent, Ht Murmur, Deep Vein Thrombosis Central Nervous System: No: CVA, Migraine, Peripheral Neuropathy, Seizures, TIA, Headaches Gastrointestinal: No: GERD, Crohn's disease Hematology/Oncology: No: Anemia Psychological: No: Anxiety, Depression, Dementia Pulmonary: No: Asthma, COPD, Pulmonary Embolism, Tuberculosis, Home Oxygen Use Rheumatologic: No: Fibromyalgia, Rheumatoid Arthritis Endocrine: No: Diabetes, Hyperthyroidism, Hypothyroidism Dermatology: No: MRSA Surgical History: Yes: Cholecystectomy, (x2), Hernia Repair (Ventral and umbilical) - Psychosocial History Smoking Status: Never Smoker Hx Alcohol Use: No Drugs: None Living Conditions: Alone (with spouse) - Medications Home Medications: Home Orders Aspirin [Aspirin 81] 81 mg PO DAILY 05/26/21 [History] Atenolol 25 mg PO DAILY 05/26/21 [History] Multiple Supplement 1 tab PO DAILY 05/26/21 [History] Spironolactone 25 mg PO DAILY 05/26/21 [History] Aspirin [Aspirin 325 mg *] 325 mg PO BID #28 tab 07/08/21 [Rx] HYDROcodone/APAP 5MG/325MG [HYDROCODONE/APAP 5 mg/325 mg] 1 - 2 tab PO Q4-6H PRN PRN 7 Days #40 tab 07/08/21 [Rx] Meloxicam 7.5 mg PO BID #28 tab 07/08/21 [Rx] - Allergies Allergies/Adverse Reactions: Allergy/AdvReac Type Severity Reaction Status Date / Time Oxycodone [From Percocet] Allergy Severe Nausea Verified 07/08/21 10:47 - Physical Exam Vital Signs: Vital Signs (Last Documented) Temperature (celsius) 36.2 C Temperature Source Temporal Artery Pulse Rate [Right] 51 Pulse Rate 72 Respiratory Rate 18 O2 Sat by Pulse Oximetry 94 Blood Pressure [Left Arm] 126/66 Blood Pressure 145/69 General Appearance: awake, alert, no apparent distress Eyes: PERRL, EOMI Neck: supple, non-tender Respiratory: lungs clear, no wheezes, rhonchi, or rales, no respiratory distress, no accessory muscle use Cardiovascular: regular rate, regular rhythm, S1/S2 Abdomen/GI: non tender, soft, nondistended Extremities: no pedal edema Neurologic: speech clear/fluent, certified indoor environmentalist II-XII grossly intact w/ no focal defects Psychiatric: oriented X 3, calm, normal affect Skin: warm/dry, normal color - Laboratories Diagnostics Laboratory Results: 05/26/21 Unknown Urine Culture - Final Urine, Clean Catch Gardnerella Vaginalis Mixed Gram Positive Organisms CBC BMP 05/26/21 13:14 05/26/21 13:15 - Assessment Plan Assessment Plan: Status post bilateral total knee arthroplasty History of dilated cardiomyopathy ejection fraction 35 to 40% mid management Obstructive sleep apnea compliant with CPAP Morbid obesity Osteoarthritis Hypertension Continue to follow patient will continue her medications she denies any recent medication changes or other concerns. Labs to be repeated tomorrow morning Dictated By: Carine Browne DO Dictated Date/Time:07/08/21 4866 Electronically Signed Date/Time: 07/09/21 3659 [facility] 07-08-2021 PD.LEX PONCE Female [id number] Ordering physician: ADM ALMEIDA 3MT M0 [id number] Attending physician: Nick Carvajal V. 1965 56 DOS: Anesthesia Assessment - Procedure NPO since: 07/07/211929 PreProcedure Diagnosis: osteoarthritis, bilat knees Surgeon: carlos Procedure to be Performed: bilat TKA - Anesthesia History Hx Anesthesia Reactions: No Risk Factors-PostOp Nausea/Vomiting: Female, Nonsmoker, Postoperative Opioids Delayed Emergence: No Difficulty with Intubation: No Resistant to medications: No - Surgical History Name of Surgery/Procedure: christa, c sections , hernia repair - Cardiovascular History Hx Cardiac Disorders: Yes Hx AL: No Hx Angina: No Hx Peripheral Vascular Disease: No Hx Congestive Heart Failure: No Hx Cardiomyopathy: Yes Hx Deep Vein Thrombosis: No Hx Cardiac Surgery: No Hx Angioplasty: No Hx Coronary Stent: No Hx Cardiac Catherization: No Hx Pacemaker/Implantable Defibrillator: No Hx Anticoagulant Therapy: Yes (asa 81 mg daily) Hx Stress Test: No Hx Irregular Heartbeat: No Hx Hypertension: Yes Hx Hypotension: No Patient Taking PO/IV Beta Blockers: Yes Date Last Beta Kimberly Taken: 07/08/21 Time Last Beta Kimberly Taken: 06:15 - Endocrine/ History Hx Endocrine Disorders: No Hx Diabetes: No Hx Hyperthyroidism: No Hx Hypothyroidism: No Hx Genitourinary: No Hx Renal Disease: No Hx Hypercholesterolemia: No Body Mass Index (BMI): 40.8 - Respiratory History Hx Respiratory Disorders: Yes Hx Chronic Obstructive Pulmonary Disease (COPD): No Hx Asthma: No Hx Emphysema: No Hx Tuberculosis: No Hx Pulmonary Embolism: No Hx Sleep Apnea: Yes (cpap) - Stop Bang Assessment Do you snore loudly?: Yes Do you often feel tired, fatigued, or sleepy during the dayt: No Do you have or are you being treated for high blood pressure: Yes Are you obese/overweight-BMI more than 35kg?: Yes Is your neck circumference greater than 16 inches?: No Are you over 50 years old?: Yes Has anyone observed you stop breathing during your sleep?: Yes Stop Bang Score: 5 - GI Medical History Hx Gastrointestinal Disorders: No Hx Hepatitis: No Hx Gastrointestinal Bleed: No Hx GERD: No Hx Diverticulitis: No Hx Crohn's Disease: No - Musculoskelatal Disorders Hx Musculoskeletal Disorders: Yes Hx Arthritis: Yes Hx Rheumatoid Arthritis: No Hx Back Pain: Yes Hx Fibromyalgia: No - Neurological Disorders Hx Neurological Disorders: No Hx Cerebrovascular Accident: No Hx Transient Ischemic Attacks (TIA): No Hx Dementia: No Hx Alzheimer's Disease: No Hx Parkinson's Disease: No Hx Seizures: No Hx Multiple Sclerosis: No Hx Cerebral Palsy: No Hx Peripheral Neuropathy: No Hx Migraines: No - Psych Medical History Hx Psychiatric Problems: No Hx Depression: No Hx Anxiety: No - Heme Medical History Hx Blood Disorders: No Hx Anemia: No - Other Medical History Hx Hospitalization: No Hx Cancer: No Hx Blood Transfusions: No Smoking Status: Never Smoker Hx Alcohol Use: No Recent URI: No - Assessment Heart Sounds: S1 S2 Breath Sounds: Clear Airway Maintained: Yes Pain Score: 0 Temperature (celsius): 36 C Pulse Rate: 50 Respiratory Rate: 16 O2 Sat by Pulse Oximetry: 99 Blood Pressure: 121/79 Height: 1.63 m Weight (kg): 108 kg - Airway MAL: 2 Condition of Teeth: Dentures Upper, Dentures Lower - Anesthesia Plan of Care ASA Class: ASA 3 Anesthesia Type: GETA VAP: If any of the above risk factors are selected Hi-Lo Endotracheal Tubes will be considered and preoperative oral care will be completed. Arterial Line: No Central Line: No Type of Block Anesthesia: Adductor Canal Post Op Pain Control: PNB - Anesthesia Notes Anesthesia Notes: Yes Anesthesia Consult: Complete Active Medications: Bupivacaine HCl (Or-Bupivacaine 0.5% Pf 30 Ml Vial) 30 ml INJ PRN PRN PRN Reason: SURGERY Stop: 07/13/21 00:59 Bupivacaine HCl/Epinephrine Bitart (Or-Bupivacaine 0.5 % Epinephrine 1:313955 30 Ml Vial) 30 ml NVBLOCK PRN PRN PRN Reason: SURGERY Stop: 07/13/21 00:59 Sodium Chloride (0.9% Nacl) 3,000 mls @ 3,000 mls/hr IRR .Q1H PRN PRN Reason: SURGERY Stop: 07/13/21 00:59 Lactated Ringer's (Lr) 1,000 mls @ 10 mls/hr IV CONTINUOUS DELFINO Stop: 07/13/21 05:59 Last Admin: 07/08/21 10:50 Dose: 10 mls/hr Documented by: Non-Formulary Medication (Nozin 1 Ea Swab) 1 ea T Q12HR DELFINO Stop: 07/13/21 08:59 Sodium Chloride (Or-0.9% Nacl Irrigation Bot 1,000 Ml) 1,000 ml IRR CONTINUOUS PRN PRN Reason: PRN Stop: 07/13/21 00:59 Sterile Water (Or-Water For Irrigation Bot 1000 Ml) 1,000 ml IRR CONTINUOUS PRN PRN Reason: PRN Stop: 07/13/21 00:59 Tranexamic Acid (Or-Tranexamic Acid 100 Mg/Ml 10 Ml Vial) 0 mg STOCK PRN PRN PRN Reason: SURGERY Stop: 07/13/21 00:59 Home Medications: Aspirin [Aspirin 81] 81 mg PO (more content not included)... [facility] POST.ANon 07-08-2021 POST.AN LEX JOHNSON Female [id number] Ordering physician: ADM ALMEIDA [facility] [id number] Attending physician: Nick Carvajal V. 1965 56 DOS: Anesthesia Post Op Assessment - Post Procedure Vital Signs Blood Pressure: 145/69 Pulse Rate: 70 Respiratory Rate: 16 Temperature (celsius): 36.3 C O2 Sat by Pulse Oximetry: 96 - Post Anesthesia Patient Orientation: Person, Time Consciousness on discharge: Fully awake Post Op Nausea/Vomiting: No Pain Controlled: Yes Circulation on Discharge: BP +/- 20% of pre-anesthesia level Delfino Score: 9 No Complications: Yes Cardiopulmonary Status Stable: Yes 07/08/211611 Dictated By: Sal Sanchez DO Electronically Signed Date/Time: 10/12/21 1612 [facility] BASIC METABOLIC PANELon 08-3 0-2020 Anion gap [Moles/Vol] 11.6 mmol/L Normal 11-23 [facility] Comment on above: Performed By: #### B MP #### [facility] [address] [place] [address] Calcium [Mass/Vol] 8.9 mg/dL Normal 8.5-10.1 [facility] Comment on above: Performed By: #### B MP #### [facility] [address] [place] [address] Chloride [Moles/Vol] 106 mmol/L Normal 98-107 [facility] Comment on above: Performed By: #### B MP #### [facility] [address] [place] [address] CO2 [Moles/Vol] 24.0 mmol/L Normal 21-32 [facility] Comment on above: Performed By: #### B MP #### [facility] [address] [place] [address] Creatinine [Mass/Vol] 0.60 mg/dL Normal 0.55-1.02 [facility] Comment on above: Performed By: #### B MP #### [facility] [address] [place] [address] GFR > 60.0 [facility] Comment on above: Performed By: #### B MP #### [facility] [address] [place] [address] GFR AM > 60.0 [facility] Comment on above: Result Comment: THE NORMAL LEVEL OF GFR VARIES ACCORDING TO AGE, SEX, AND BODY SIZE. A GFR LEVEL OF LESS THAN 60 ML/MIN REPRESENTS LOSS OF THE ADULT LEVEL OF NORMAL KIDNEY FUNCTION. Performed By: #### B MP #### [facility] [address] [place] [address] Glucose [Mass/Vol] 98 mg/dL Normal 70-100 [facility] Comment on above: Performed By: #### B MP #### [facility] [address] [place] [address] Potassium [Moles/Vol] 3.9 mmol/L Normal 3.5-5.1 [facility] Comment on above: Performed By: #### B MP #### [facility] [address] [place] [address] Sodium [Moles/Vol] 138 mmol/L Normal 136-145 [facility] Comment on above: Performed By: #### B MP #### [facility] [address] [place] [address] Urea nitrogen [Mass/Vol] 17.0 mg/dL Normal 7-18 [facility] Comment on above: Performed By: #### B MP #### [facility] [address] [place] [address] CBC with AUTO DIFFon 021 BAS0 % 0.40 % Normal 0-2 [facility] Comment on above: Performed By: #### C BC #### [facility] [address] [place] [address] Basophils (Bld) [#/Vol] 0.0 10*3/uL Normal 0-0.1 [facility] Comment on above: Performed By: #### C BC #### [address] [place] [address] Eosinophils (Bld) [#/Vol] 0.1 10*3/uL Normal 0.0-1.80 [facility] Comment on above: Performed By: #### C BC #### [address] [place] [address] Eosinophils/100 WBC (Bld) 1.4 % Normal 0-8 [facility] Comment on above: Performed By: #### C BC #### [address] [place] [address] GRAN # 4.6 K/uL Normal 2.2-9.1 [facility] Comment on above: Performed By: #### C BC #### [address] [place] [address] GRAN % 63.6 % Normal 42-80 [facility] Comment on above: Performed By: #### C BC #### [address] [place] [address] Hematocrit (Bld) [Volume fraction] 40.2 % Normal 37.0-47.0 [facility] Comment on above: Performed By: #### C BC #### [facility] [address] [place] [address] Hemoglobin (Bld) [Mass/Vol] 13.8 g/dL Normal 12.0-16.0 [facility] Comment on above: Performed By: #### C BC #### [address] [place] [address] Lymphocytes (Bld) [#/Vol] 2.0 10*3/uL Normal 1.0-4.0 [facility] Comment on above: Performed By: #### C BC #### [facility] [address] [place] [address] Lymphocytes/100 WBC (Bld) 28.0 % Normal 16-48 [facility] Comment on above: Performed By: #### C BC #### [facility] [address] [place] [address] MCV (RBC) [Entitic vol] 88.8 fL Normal 80-97 [facility] Comment on above: Performed By: #### C BC #### [facility] [address] [place] [address] MEAN CORPUSCULAR HGB 30.5 pg Normal 26.0-32.0 [facility] Comment on above: Performed By: #### C BC #### [facility] [address] [place] [address] MEAN CORPUSCULAR HGB CONC 34.4 g/dL Normal 31.0-36.0 [facility] Comment on above: Performed By: #### C BC #### [facility] [address] [place] [address] Monocytes (Bld) [#/Vol] 0.5 10*3/uL Normal 0.1-1.7 [facility] Comment on above: Performed By: #### C BC #### [facility] [address] [place] [address] Monocytes/100 WBC (Bld) 6.6 % Normal 3-9 [facility] Comment on above: Performed By: #### C BC #### [facility] [address] [place] [address] Platelet mean volume (Bld) [Entitic vol] 7.9 fL Normal 6.6-10.5 [facility] Comment on above: Performed By: #### C BC #### [facility] [address] [place] [address] Platelets (Bld) [#/Vol] 213 10*3/uL Normal 140-450 [facility] Comment on above: Performed By: #### C BC #### [facility] [address] [place] [address] RBC (Bld) [#/Vol] 4.53 10*6/uL Normal 4.20-5.50 [facility] Comment on above: Performed By: #### C BC #### [facility] [address] [place] [address] RED CELL DISTRI WIDTH 13.5 % Normal 11.0-15.5 [facility] Comment on above: Performed By: #### C BC #### [facility] [address] [place] [address] WBC (Bld) [#/Vol] 7.3 10*3/uL Normal 4.0-11.0 [facility] Comment on above: Performed By: #### C BC #### [facility] [address] [place] [address] GLYCOHEMOGLOBIN (A1C)on 04-29 EST AVG GLUCOSE 117 [facility] Comment on above: Performed By: #### G LY ####[facility] [address] [place] [address] HbA1c (Bld) [Mass fraction] 5.7 % [facility] Comment on above: Result Comment: Inte rpretation of Hgb A1C results: <5.7% Normal 5.7% - 6.4% Prediabetes >6.4% Diabetes SAMPLES FROM PATIENTS WITH HEMOLYTIC ANEMIAS OR THE PRESENCE OF UNSTABLE HEMOGLOBINS LIKE HbSS OR HbSC WILL EXHIBIT DECREASED GLYCATED HGB DUE TO THE SHORTENED LIFE SPAN OF THE RED CELLS.RESULTS ARE NOT RELIABLE IN PATIENTS WITH CHRONIC BLOOD LOSS. Performed By: #### G LY ####[facility] [facility] [place] [address] PC.CONSULTon 05-26-2021 PC.CONSULT LEX JOHNSON Female [id number] Attending provider: [facility] [id number] Nick Carvajal V. 1965 55 DOS: Previous medical records have been obtained from [facility]- Cardiac stress test from 09-14-17- Final impression: Symptomatically negative, electrocardiographically negative, and echocardiographically markedly abnormal dobutamine stress echocardiogram for ischemia at appropriate heart rate response to chemical stress testing. Cardiac catheterization from 09-15-17 report demonstrates dilated cardiomyopathy with LV EF 35 to 40%. Elevated left ventricular end-diastolic pressure 25 to 30 mmHg. Normal epicardial coronary arteries. It was recommended that the patient receive aggressive medical management for CHF and dilated cardiomyopathy and cardiac risk factor intervention. The patient's urine culture was completed and reviewed and was positive for > 100,000 CFU/mL Braulio nerella vaginalis. The patient was notified and she does admit to one episode of dysuria and a foul vaginal odor. I will call in a prescription for metronidazole 500 mg by mouth twice a day for 7 day s to [facility] pharmacy in [place]. The patient is to begin taking this as prescribed. All questions were answered to satisfaction. She voiced understanding and was agreeable with this plan. Addendum Signed By: KARL Henderson Sign Date/Time: 05/29/21 1246 [facility] Consult - Date of Service Date of Service: 05/26/21 - History of Present Illness Reason for Visit: Osteoarthritis, bilateral knees History of Present Illness: This is a pleasant, 55-year-old, female patient of Dr. Carvajal, presenting in the clinic today for an evaluation prior to a bilateral total knee arthroplasty; which is scheduled to occur on 07-08-29. Significant history includes hypertension, cardiomyopathy, obstructive sleep apnea (compliant with CPAP), and morbid obesity (BMI >40). The patient admits to chronic and progressive bilateral knee pain, left greater than right, for the last 4 years. She states that approximately 2 years ago she twisted her left knee resulting in a increase in pain. She admits to loss of range of motion to bilateral knees, clicking with range of motion, and occasional muscle spasms. She denies any joint weakness/instability or paresthesias to her left lower extremities. She states that her pain is exacerbated with weightbearing activity including standing, ambulating, and when carrying items. She admits to a decrease in her daily activity as a result of her symptoms. She has trialed cortisone injections to her left knee which improved her symptoms but did not resolve them fully. She is currently using ibuprofen and Tylenol as needed for pain. She sought repeat evaluation from her orthopedic physician and surgical intervention was recommended. She offers no other complaints during her time of visit. - Review of Systems Constitutional: Denies: Fever, Chills, Sweats, Malaise Eyes: Denies: Pain, Vision Change ENT: Denies: Ear Pain, Nose Discharge, Nose Congestion, Mouth Pain, Throat Pain Respiratory: Denies: Cough, Shortness of Breath, Hemoptysis, SOB with Excertion, Sputum, Wheezing Gastrointestinal: Denies: Nausea, Vomiting, Abdominal Pain, Diarrhea, Constipation, Hematochezia Genitourinary: Vaginal bleed/discharge (Spotting during normal mestrual cycle). Denies: Dysuria, Frequency, Urgency, Hematuria Cardiovascular: Denies: Chest Pain, Palpitations, Edema, Light Headedness Musculoskeletal: Leg Pain (Bilat knee pain, denies swelling). Denies: Neck Pain, Back Pain Skin: Denies: Rash, Lesions Neurological: Denies: Weakness, Numbness, Incoordination Psychiatric: Denies: Anxiety, Depression, Suicidal Ideation - Past Medical/Surgical History General History: Yes: Hypertension Denies: Diabetes, CAD, Myocardial Infarction, Congestive Heart Failure, AsthmCOPD, CVA, Anxiety, Depression Cardiovascular: Yes: Hypertension, Other (Cardiomyopathy) No: CAD, CHF, AL, Angina, Hypercholesterolemia, Arrhythmia, Heart Murmur, Deeein Thrombosis Central Nervous System: No: CVA, Migraine, TIA, Headaches Gastrointestinal: No: GERD Hematology/Oncology: No: Anemia Psychological: No: Anxiety, Depression Pulmonary: No: Asthma, COPD, Pulmonary Embolism, Home Oxygen Use Endocrine: No: Diabetes Dermatology: No: MRSA Surgical History: Yes: Cholecystectomy, (x2), Hernia Repair (Ventral and umbilical) Other Surgical History: Patient admits to nausea and vomiting with Percocet after her surgery - Family History Family History: Mother- Heart disease - Psychosocial History Smoking Status: Never Smoker Hx Alcohol Use: No Drugs: None Living Conditions: Alone (with spouse) - Medications Home Medications: Home Orders Aspirin [Aspirin 81] 81 mg PO DAILY 05/26/21 [History] Atenolol 25 mg PO DAILY 05/26/21 [History] Multiple Supplem (more content not included)... Normal [facility] PRO BNPon 05-26-2021 Natriuretic peptide B (Bld) [Mass/Vol] 139 pg/mL High 0-124 [facility] Comment on above: Performed By: #### T RO, BNP ####[address] [address] TROPONINon 05-26-2021 TROPONIN 19.7 pg/mL Normal 0-53.7 [facility] Comment on above: Result Comment: Trop onin Reference Range: Male: 0-78.5 pg/mL (ng/L) Female: 0-53.7 pg/mL (ng/L) Note: The new high sensitivity Troponin units are in pg/mL (ng/L) Performed By: #### T RO, BNP ####[address] [place] [address] URINALYSIS W/ C S IF INDICAT EDon 05-26-2021 Appearance (U) Clear Normal CLEAR [facility] Comment on above: Performed By: #### U AC, UMICC #### [address] [place] [address] Color (U) Lt. Yellow Normal [facility] Comment on above: Performed By: #### U AC, UMICC #### [address] [place] [address] Hemoglobin Ql (U) 3+ Abnormal NEGATIVE [facility] Comment on above: Performed By: #### U AC, UMICC #### [address] [place] [address] pH (U) 6.0 [pH] Normal 5.0-9.0 [facility] Comment on above: Performed By: #### U AC, UMICC #### [address] [place] [address] URINE BILIRUBIN - DIPSTICK Negative Normal NEGATIVE [facility] Comment on above: Performed By: #### U AC, [facility] #### [address] [place] [address] URINE GLUCOSE - DIPSTICK Negative Normal NEGATIVE [facility] Comment on above: Performed By: #### U AC, UMICC #### [address] [place] [address] URINE KETONE Negative Normal NEGATIVE [facility] Comment on above: Performed By: #### U AC, UMICC #### [address] [place] [address] URINE LEUK ESTERASE 2+ Abnormal NEGATIVE [facility] Comment on above: Performed By: #### U AC, UMICC #### [address] [place] [address] URINE NITRITE - DIPSTICK Negative Normal NEGATIVE [facility] Comment on above: Performed By: #### U AC, UMICC #### [address] [place] [address] URINE PROTEIN - DIPSTICK Negative Normal NEGATIVE [facility] Comment on above: Performed By: #### U AC, UMICC #### [address] [place] [address] URINE SPEC GRAVITY, DIPSTICK 1.025 Normal 1.003-1.035 [facility] Comment on above: Performed By: #### U NEFTALI, [facility] #### [facility] [address] [place] [address] URINE UROBILINOGEN - DIPSTICK 0.2 E.U./dL Normal <=1.0 [facility] Comment on above: Performed By: #### U NEFTALI, [facility] #### [facility] [address] [place] [address] URINE MICROSCOPICon 05-26-20 21 Mucus Ql (Urine sed) 1+ Normal <1+ [facility] Comment on above: Performed By: #### U NEFTALI, [facility] #### [address] [address] UR SQUAM EPITH MANY Normal NONE-MANY [facility] Comment on above: Performed By: #### Alice LINDSAY, [facility] #### [address] [address] URINE BACTERIA 3+ Normal <1+ [facility] Comment on above: Result Comment: Cult ure Pending Performed By: #### U NEFTALI, [facility] #### [address] [address] URINE RBC 20-30 Normal 0-2 [facility] Comment on above: Performed By: #### U NEFTALI, [facility] #### [address] [address] URINE WBC 40-50 Normal 0-3 [facility] Comment on above: Result Comment: Cult ure Pending Performed By: #### U NEFTALI, [facility] #### [address] [address] LIPIDon 04-24-2021 Cholesterol [Mass/Vol] 202 mg/dL Abnormal 50 - 199 mg/dL [facility], [facility] Comment on above: Result Comment: Chol esterol Reference Interval: Less than 200 Desirable 200-239 Borderline high risk 240 and above High risk Performed By: #### C BC, ADIFF, ANEU, TSH, FE, CMP, GFR, LIPID #### [place] [address] Cholesterol in HDL [Mass/Vol] 31 mg/dL Abnormal 40 - 59 mg/dL [facility], [facility]. Comment on above: Performed By: #### C BC, ADIFF, ANEU, TSH, FE, CMP, GFR, LIPID #### [address] [address] Cholesterol in LDL [Mass/Vol] 131 mg/dL Abnormal 0 - 129 mg/dL [facility]. Comment on above: Performed By: #### C BC, ADIFF, ANEU, TSH, FE, CMP, GFR, LIPID #### [address] [address] Triglyceride [Mass/Vol] 201 mg/dL Abnormal 3 - 149 mg/dL [facility]. Comment on above: Performed By: #### C BC, ADIFF, ANEU, TSH, FE, CMP, GFR, LIPID #### [address] [address] .Auto Diffon 04-23-2021 Basophil, Absolute 0.10 10 3/mcL Normal 0.00-0.27 [facility] ([place]) Comment on above: Performed By: #### C BC, ADIFF, ANEU, TSH, FE, CMP, GFR, LIPID #### [address] [address] Basophils/100 WBC (Bld) 0.7 % Normal 0.0 - 2.5 % [facility] ([place]) Comment on above: Performed By: #### C BC, ADIFF, ANEU, TSH, FE, CMP, GFR, LIPID #### [address] [address] Eosinophil, Absolute 0.10 10 3/mcL Normal 0.00-0.65 [facility] ([place]) Comment on above: Performed By: #### C BC, ADIFF, ANEU, TSH, FE, CMP, GFR, LIPID #### [address] [address] Eosinophils/100 WBC (Bld) 1.3 % Normal 0.0 - 6.0 % [facility] ([place]) Comment on above: Performed By: #### C BC, ADIFF, ANEU, TSH, FE, CMP, GFR, LIPID #### [address] [address] Lymphocyte, Absolute 1.80 10 3/mcL Normal 0.90-4.32 [facility] ([place]) Comment on above: Performed By: #### C BC, ADIFF, ANEU, TSH, FE, CMP, GFR, LIPID #### [address] [address] Lymphocytes/100 WBC (Bld) 23.0 % Normal 20.0 - 40.0 % [facility] ([place]) Comment on above: Performed By: #### C BC, ADIFF, ANEU, TSH, FE, CMP, GFR, LIPID #### [address] [address] Monocyte, Absolute 0.50 10 3/mcL Normal 0.09-1.40 [facility] ([place]) Comment on above: Performed By: #### C BC, ADIFF, ANEU, TSH, FE, CMP, GFR, LIPID #### [address] [address] Monocytes/100 WBC (Bld) 6.1 % Normal 2.0 - 13.0 % [facility] ([place]) Comment on above: Performed By: #### C BC, ADIFF, ANEU, TSH, FE, CMP, GFR, LIPID #### [address] [address] Neutrophils/100 WBC (Bld) 68.9 % Normal 50.0 - 75.0 % [facility] ([place]) Comment on above: Performed By: #### C BC, ADIFF, ANEU, TSH, FE, CMP, GFR, LIPID #### [address] [address] .GFRon 04-23-2021 GFR Non- >60 Normal [facility] ([place]) Comment on above: Result Comment: GFR Population mean for , Non- Americans Ages 20-29 = 116 mL/min/1.73 sq.m. Ages 30-39 = 107 mL/min/1.73 sq.m. Ages 40-49 = 99 mL/min/1.73 sq.m. Ages 50-59 = 93 mL/min/1.73 sq.m. Ages 60-69 = 85 mL/min/1.73 sq.m. Ages 70+ = 75 mL/min/1.73 sq.m. Chronic Kidney Disease: Less than 60 mL/min/1.73 square meters End Stage Renal Disease: Less than 15 mL/min/1.73 square meters Performed By: #### C BC, ADIFF, ANEU, TSH, FE, CMP, GFR, LIPID #### [address] [address] GFR >60 Normal [facility] ([place]) Comment on above: Result Comment: GFR Population mean for , Non- Americans Ages 20-29 = 116 mL/min/1.73 sq.m. Ages 30-39 = 107 mL/min/1.73 sq.m. Ages 40-49 = 99 mL/min/1.73 sq.m. Ages 50-59 = 93 mL/min/1.73 sq.m. Ages 60-69 = 85 mL/min/1.73 sq.m. Ages 70+ = 75 mL/min/1.73 sq.m. Chronic Kidney Disease: Less than 60 mL/min/1.73 square meters End Stage Renal Disease: Less than 15 mL/min/1.73 square meters Performed By: #### C BC, ADIFF, ANEU, TSH, FE, CMP, GFR, LIPID #### [address] [id number] .NEUABSon 04-23-2021 Neutrophil, Absolute 5.50 10 3/mcL Normal 2.25-8.10 [facility] ([place]) Comment on above: Performed By: #### C BC, ADIFF, ANEU, TSH, FE, CMP, GFR, LIPID #### [address] [address] CBCon 04-23-2021 Erythrocyte distribution width (RBC) [Ratio] 14.0 % Normal 11.5 - 15.5 % [facility], [facility].; [facility], [facility]. Comment on above: Performed By: #### C BC, ADIFF, ANEU, TSH, FE, CMP, GFR, LIPID #### [place] [address] Hematocrit (Bld) [Volume fraction] 39.4 % Normal 34.0 - 46.0 % [facility]. Comment on above: Performed By: #### C BC, ADIFF, ANEU, TSH, FE, CMP, GFR, LIPID #### [place] [id number] Hgb 13.1 G/dL Normal 12.0-16.0 [facility] ([place]) Comment on above: Performed By: #### C BC, ADIFF, ANEU, TSH, FE, CMP, GFR, LIPID #### [place] [address] MCH (RBC) [Entitic mass] 29.9 pg Normal 27.0 - 33.0 pg [facility]. Comment on above: Performed By: #### C BC, ADIFF, ANEU, TSH, FE, CMP, GFR, LIPID #### [place] [address] MCHC 33.4 G/dL Normal 32.0-36.0 [facility] ([place] Comment on above: Performed By: #### C BC, ADIFF, ANEU, TSH, FE, CMP, GFR, LIPID #### [place] [address] MCV (RBC) [Entitic vol] 89.5 fL Normal 80.0 - 99.0 fL [facility]. Comment on above: Performed By: #### C BC, ADIFF, ANEU, TSH, FE, CMP, GFR, LIPID #### [place] [id number] Platelet 234 10 3/mcL Normal 150-450 [facility] ([place] Comment on above: Performed By: #### C BC, ADIFF, ANEU, TSH, FE, CMP, GFR, LIPID #### [place] [id number] Platelet mean volume (Bld) [Entitic vol] 8.5 fL Normal 6.6 - 10.5 fL [facility]. Comment on above: Performed By: #### C BC, ADIFF, ANEU, TSH, FE, CMP, GFR, LIPID #### [place] [address] RBC 4.40 10 6/mcL Normal 4.10-5.30 [facility] ([place] Comment on above: Performed By: #### C BC, ADIFF, ANEU, TSH, FE, CMP, GFR, LIPID #### [place] [address] WBC 7.90 10 3/mcL Normal 4.50-10.80 [facility]) Comment on above: Performed By: #### C BC, ADIFF, ANEU, TSH, FE, CMP, GFR, LIPID #### [place] [address] CMPon 04-23-2021 Albumin Level 3.7 G/dL Normal 3.2-4.8 [facility] ([place] Comment on above: Performed By: #### C BC, ADIFF, ANEU, TSH, FE, CMP, GFR, LIPID #### [place] [address] Albumin/Globulin [Mass ratio] 1.3 {ratio} Normal 0.9 - 1.6 {ratio} [facility]. Comment on above: Performed By: #### C BC, ADIFF, ANEU, TSH, FE, CMP, GFR, LIPID #### [place] [address] ALP [Catalytic activity/Vol] 68 U/L Normal 38 - 126 U/L [facility]. Comment on above: Performed By: #### C BC, ADIFF, ANEU, TSH, FE, CMP, GFR, LIPID #### [place] [id number] ALT [Catalytic activity/Vol] 21 U/L Normal 10-49 [facility] ([place] Comment on above: Performed By: #### C BC, ADIFF, ANEU, TSH, FE, CMP, GFR, LIPID #### [address] [address] AST [Catalytic activity/Vol] 17 U/L Normal 8 - 34 U/L [facility], [facility]. Comment on above: Performed By: #### C BC, ADIFF, ANEU, TSH, FE, CMP, GFR, LIPID #### [address] [address] Bili Total 1.10 mg/dL Normal 0.20-1.20 [facility] ([place]) Comment on above: Result Comment: Use of this assay is not recommended for patients undergoing treatment with eltrombopag due to the potential for falsely elevated results. Performed By: #### C BC, ADIFF, ANEU, TSH, FE, CMP, GFR, LIPID #### [place] [address] BUN/Creatinine Ratio 28.1 ratio High 10.0-22.0 [facility] ([place]) Comment on above: Performed By: #### C BC, ADIFF, ANEU, TSH, FE, CMP, GFR, LIPID #### [place] [id number] Calcium [Mass/Vol] 9.4 mg/dL Normal 8.7 - 10. 4 mg/dL [facility], [facility]. Comment on above: Result Comment: No te - New Reference Range in effect 20 Performed By: #### C BC, ADIFF, ANEU, TSH, FE, CMP, GFR, LIPID #### [place] [id number] Chloride [Moles/Vol] 108 mmol/L Normal 98 - 11 0 meq/L [facility], [facility]. Comment on above: Performed By: #### C BC, ADIFF, ANEU, TSH, FE, CMP, GFR, LIPID #### [address] [address] CO2 [Moles/Vol] 24 mmol/L Normal 22 - 32 meq/L [facility]. Comment on above: Performed By: #### C BC, ADIFF, ANEU, TSH, FE, CMP, GFR, LIPID #### [address] [address] Creatinine [Mass/Vol] 0.64 mg/dL Normal 0.50 - 1.20 mg/dL [facility], [facility]. Comment on above: Performed By: #### C BC, ADIFF, ANEU, TSH, FE, CMP, GFR, LIPID #### [address] [address] Electrolyte Balance 7.0 mEq/L Normal 4.0 - 15 .0 meq/L [facility], [facility]. Comment on above: Performed By: #### C BC, ADIFF, ANEU, TSH, FE, CMP, GFR, LIPID #### [address] [address] Globulin 2.9 G/dL Normal 1.5-3.8 [facility] ([place]) Comment on above: Performed By: #### C BC, ADIFF, ANEU, TSH, FE, CMP, GFR, LIPID #### [address] [address] Glucose [Mass/Vol] 132 mg/dL Abnormal 70 - 110 mg/dL [facility], [facility]. Comment on above: Performed By: #### C BC, ADIFF, ANEU, TSH, FE, CMP, GFR, LIPID #### [address] [address] Potassium [Moles/Vol] 3.9 mmol/L Normal 3.5 - 5.0 meq/L [facility].; [facility], [facility]. Comment on above: Performed By: #### C BC, ADIFF, ANEU, TSH, FE, CMP, GFR, LIPID #### [address] [address] Sodium [Moles/Vol] 139 mmol/L Normal 136 - 145 meq/L [facility]. Comment on above: Performed By: #### C BC, ADIFF, ANEU, TSH, FE, CMP, GFR, LIPID #### [address] [address] Total Protein 6.6 G/dL Normal 5.7-8.2 [facility] ([place]) Comment on above: Result Comment: No te - New Reference Range in effect 20 Performed By: #### C BC, ADIFF, ANEU, TSH, FE, CMP, GFR, LIPID #### [address] [address] Urea nitrogen [Mass/Vol] 18.0 mg/dL Normal 8.0 - 22.0 mg/dL [facility], [facility]. Comment on above: Performed By: #### C BC, ADIFF, ANEU, TSH, FE, CMP, GFR, LIPID #### [address] [address] FEon 04-23-2021 Iron [Mass/Vol] 67 ug/dL Normal 50 - 170 ug/dL [facility], [facility]. Comment on above: Performed By: #### C BC, ADIFF, ANEU, TSH, FE, CMP, GFR, LIPID #### [address] [address] Laboratory - Chemistry and C hemistry - challengeon 04-23-2021 Albumin BCP dye [Mass/Vol] 3.7 g/dL Normal 3.2 - 4.8 g/dL [facility], [facility].; [facility] [employer] ALT No additional P-5'-P [Catalytic activity/Vol] 21 U/L Normal 10 - 49 U/L [facility], [employer] ALT With P-5'-P [Catalytic activity/Vol] 21 U/L Normal 10 - 49 U/L [facility], [facility]. AST With P-5'-P [Catalytic activity/Vol] 17 U/L Normal 8 - 34 U/L [facility], [facility] Bilirubin [Mass/Vol] 1.10 mg/dL Normal 0.20 - 1.20 mg/dL [facility], [facility]. GFR/1.73 sq M.predicted among blacks MDRD (S/P/Bld) [Vol rate/Area] mL/min/{1.73_m2} Normal [facility], [facility] Work Phone: GFR/1.73 sq M.predicted among non-blacks MDRD (S/P/Bld) [Vol rate/Area] mL/min/{1.73_m2} Normal [facility].; [facility], [facility]. Work Phone: Globulin (S) [Mass/Vol] 2.9 g/dL Normal 1.5 - 3.8 g/dL [facility].; [facility], [facility]. Protein [Mass/Vol] 6.6 g/dL Normal 5.7 - 8.2 g/dL [facility].; [facility], [facility]. TSH Qn 1.253 m[IU]/L Normal 0.550 - 4.780 m[iU]/mL [facility].; [facility], [facility]. Urea nitrogen/Creatinine [Mass ratio] 28.1 {ratio} Abnormal 10.0 - 22.0 {ratio} [facility].; [facility], [facility]. Laboratory - Hematology and Cell countson 04-23-2021 Basophils (Bld) [#/Vol] 0.10 {10^3/mcL} Normal 0.00 - 0.27 {10^3/mcL} [facility].; [facility], [facility] Work Phone: Eosinophils (Bld) [#/Vol] 0.10 {10^3/mcL} Normal 0.00 - 0.65 {10^3/mcL} [facility] [employer] [facility] [employer]. Work Phone: Hemoglobin (Bld) [Mass/Vol] 13.1 g/dL Normal 12.0 - 16.0 g/dL [facility].; [facility] [employer] [facility], [employer]. Lymphocytes (Bld) [#/Vol] 1.80 {10^3/mcL} Normal 0.90 - 4.32 {10^3/mcL} [facility].; [facility] [employer] [facility], [employer]. Work Phone: MCHC (RBC) [Mass/Vol] 33.4 g/dL Normal 32.0 - 36.0 g/dL [facility] [employer] [facility].; [facility] [employer] [facility], [employer]. Monocytes (Bld) [#/Vol] 0.50 {10^3/mcL} Normal 0.09 - 1.40 {10^3/mcL} [facility].; [facility] [employer] Work Phone: Neutrophils (Bld) [#/Vol] 5.50 {10^3/mcL} Normal 2.25 - 8.10 {10^3/mcL} [facility] [employer] Work Phone: Platelets (Bld) [#/Vol] 234 {10^3/mcL} Normal 150 - 450 {10^3/mcL} [facility] [employer] [facility] [employer] [facility] RBC (Bld) [#/Vol] 4.40 {10^6/mcL} Normal 4.10 - 5.30 {10^6/mcL} [facility] [employer] [facility] [employer] [facility] WBC (Bld) [#/Vol] 7.90 {10^3/mcL} Normal 4.50 - 10.80 {10^3/mcL} [facility] [employer].; [employer]. No Panel Informationon 04-23 Basophil, Absolute 0.10 {10^3/mcL} Normal 0.00 - 0.27 {10^3/mcL} [employer]. Work Phone: Eosinophil, Absolute 0.10 {10^3/mcL} Normal 0.00 - 0.65 {10^3/mcL} [employer]. Work Phone: Lymphocyte, Absolute 1.80 {10^3/mcL} Normal 0.90 - 4.32 {10^3/mcL} [employer]. Work Phone: Monocyte, Absolute 0.50 {10^3/mcL} Normal 0.09 - 1.40 {10^3/mcL} [employer]. Work Phone: Neutrophil, Absolute 5.50 {10^3/mcL} Normal 2.25 - 8.10 {10^3/mcL} [employer]. Work Phone: TSHon 04-23-2021 TSH 1.253 mIU/mL Normal 0.550-4.780 [facility] ([place]) Comment on above: Result Comment: No te - New Reference Range in effect 20 Performed By: #### C BC, ADIFF, ANEU, TSH, FE, CMP, GFR, LIPID #### [place] [address] Laboratory - Chemistry and C hemistry - challengeon 07-24-2019 Albumin BCP dye [Mass/Vol] 3.8 g/dL Normal 3.2 - 4.8 g/dL [employer]. Albumin/Globulin [Mass ratio] 1.1 {ratio} Normal 0.9 - 1.6 {ratio} [facility], [facility]. ALP [Catalytic activity/Vol] 62 U/L Normal 38 - 126 U/L [facility].; [facility], [facility]. ALT No additional P-5'-P [Catalytic activity/Vol] 32 U/L Normal 10 - 49 U/L [facility].; [facility], [facility]. ALT With P-5'-P [Catalytic activity/Vol] 32 U/L Normal 10 - 49 U/L [facility].; [facility], [facility]. AST [Catalytic activity/Vol] 15 U/L Normal 8 - 34 U/L [facility].; [facility], [facility]. AST With P-5'-P [Catalytic activity/Vol] 15 U/L Normal 8 - 34 U/L [facility].; [facility], [facility]. Bilirubin [Mass/Vol] 0.7 mg/dL Normal 0.2 - 1 .2 mg/dL [facility], [facility]. Calcium [Mass/Vol] 9.2 mg/dL Normal 8.4 - 10. 1 mg/dL [facility], [facility]. Chloride [Moles/Vol] 107 mmol/L Normal 98 - 11 0 meq/L [facility].; [facility], [facility]. Cholesterol [Mass/Vol] 178 mg/dL Normal 50 - 199 mg/dL [facility].; [facility], [facility]. Cholesterol in HDL [Mass/Vol] 37 mg/dL Abnormal 40 - 59 mg/dL [facility].; [facility], [facility]. Cholesterol in LDL [Mass/Vol] 113 mg/dL Normal 0 - 129 mg/dL [facility].; [facility], [facility]. CO2 [Moles/Vol] 27 mmol/L Normal 22 - 32 meq/L [facility].; [facility], [employer] Creatinine [Mass/Vol] 0.56 mg/dL Normal 0.50 - 1.20 mg/dL [facility].; [facility]. GFR/1.73 sq M.predicted among blacks MDRD (S/P/Bld) [Vol rate/Area] mL/min/{1.73_m2} Normal [facility].; [facility], [facility] Work Phone: GFR/1.73 sq M.predicted among non-blacks MDRD (S/P/Bld) [Vol rate/Area] mL/min/{1.73_m2} Normal [facility].; [facility] Work Phone: Globulin (S) [Mass/Vol] 3.5 g/dL Normal 1.5 - 3.8 g/dL [facility].; [facility]. Glucose [Mass/Vol] 88 mg/dL Normal 70 - 110 mg/dL [facility].; [facility], [facility]. Iron [Mass/Vol] 63 ug/dL Normal 37 - 170 ug/dL [facility].; [facility], [facility]. Potassium [Moles/Vol] 4.2 mmol/L Normal 3.5 - 5.0 meq/L [facility].; [facility] Protein [Mass/Vol] 7.3 g/dL Normal 6.0 - 8.5 g/dL [facility].; [facility], [facility]. Sodium [Moles/Vol] 141 mmol/L Normal 136 - 145 meq/L [facility].; [facility]. Triglyceride [Mass/Vol] 141 mg/dL Normal 3 - 149 mg/dL [facility].; [facility], [facility]. TSH Qn 1.290 m[IU]/L Normal 0.360 - 3.740 {mcIU/mL} [facility].; [facility], [facility] Urea nitrogen [Mass/Vol] 14.0 mg/dL Normal 8.0 - 22.0 mg/dL [facility].; [facility], [facility] Urea nitrogen/Creatinine [Mass ratio] 25.0 {ratio} Abnormal 10.0 - 22.0 {ratio} [facility].; [facility], [facility] Laboratory - Hematology and Cell countson 07-24-2019 Basophils (Bld) [#/Vol] 0.00 {10^3/mcL} Normal 0.00 - 0.27 {10^3/mcL} [facility].; [facility], [facility]. Work Phone: Basophils/100 WBC (Bld) 0.5 % Normal 0.0 - 2.5 % [facility].; [facility] Work Phone: Eosinophils (Bld) [#/Vol] 0.10 {10^3/mcL} Normal 0.00 - 0.65 {10^3/mcL} [facility].; [facility], [facility]. Work Phone: Eosinophils/100 WBC (Bld) 1.3 % Normal 0.0 - 6.0 % [facility].; [facility], [facility] Work Phone: Erythrocyte distribution width (RBC) [Ratio] 14.4 % Normal 11.5 - 15.5 % [facility].; [facility], [facility] Hematocrit (Bld) [Volume fraction] 40.0 % Normal 34.0 - 46.0 % [facility].; [facility], [facility] Hemoglobin (Bld) [Mass/Vol] 13.1 g/dL Normal 12.0 - 16.0 g/dL [facility].; [facility], [facility] Lymphocytes (Bld) [#/Vol] 1.90 {10^3/mcL} Normal 0.90 - 4.32 {10^3/mcL} [facility].; [facility], [facility]. Work Phone: Lymphocytes/100 WBC (Bld) 24.2 % Normal 20.0 - 40.0 % [facility], [facility]. Work Phone: MCH (RBC) [Entitic mass] 29.8 pg Normal 27.0 - 33.0 pg [facility].; [facility], [facility] MCHC (RBC) [Mass/Vol] 32.7 g/dL Normal 32.0 - 36.0 g/dL [facility].; [facility], [facility]. MCV (RBC) [Entitic vol] 91.1 fL Normal 80.0 - 99.0 fL [facility].; [facility], [facility] Monocytes (Bld) [#/Vol] 0.50 {10^3/mcL} Normal 0.09 - 1.40 {10^3/mcL} [facility].; [facility], [facility]. Work Phone: Monocytes/100 WBC (Bld) 6.1 % Normal 2.0 - 13.0 % [facility].; [facility], [facility]. Work Phone: Neutrophils (Bld) [#/Vol] 5.20 {10^3/mcL} Normal 2.25 - 8.10 {10^3/mcL} [facility].; [facility], [facility]. Work Phone: Neutrophils/100 WBC (Bld) 67.9 % Normal 50.0 - 75.0 % [facility].; [facility], [facility]. Work Phone: Platelet mean volume (Bld) [Entitic vol] 7.9 fL Normal 6.6 - 10.5 fL [facility].; [facility], [facility]. Platelets (Bld) [#/Vol] 218 {10^3/mcL} Normal 150 - 450 {10^3/mcL} [facility] [employer] [facility] [employer] [facility] RBC (Bld) [#/Vol] 4.40 {10^6/mcL} Normal 4.10 - 5.30 {10^6/mcL} [facility] [employer] [facility] [facility] [employer] [facility] WBC (Bld) [#/Vol] 7.70 {10^3/mcL} Normal 4.50 - 10.80 {10^3/mcL} [facility] [employer] [facility] [facility] [employer] No Panel Informationon 07-24 Basophil, Absolute 0.00 {10^3/mcL} Normal 0.00 - 0.27 {10^3/mcL} [employer] [facility] [employer] Work Phone: Electrolyte Balance 7.0 meq/L Normal 4.0 - 15 .0 meq/L [facility] [employer] [facility] [employer] Eosinophil, Absolute 0.10 {10^3/mcL} Normal 0.00 - 0.65 {10^3/mcL} [employer] [facility] [employer] Work Phone: Lymphocyte, Absolute 1.90 {10^3/mcL} Normal 0.90 - 4.32 {10^3/mcL} [employer] [facility] [employer] Work Phone: Monocyte, Absolute 0.50 {10^3/mcL} Normal 0.09 - 1.40 {10^3/mcL} [employer] - [facility] [employer] Work Phone: Neutrophil, Absolute 5.20 {10^3/mcL} Normal 2.25 - 8.10 {10^3/mcL} [employer] [facility] [employer] Work Phone: CARD.CATHon 09-16-2017 CARD.CATH [Embedded Image Not Available][facility] Patient Name: REBEKAH JOHNSON [place] Date of : [address] [address] Unit Number: [id number] Number: [id number] Catheterization Patient Status: DIS INAttending Doctor: Ritesh Marlow MDService Date: 09/15/17 2310Cardiac CatheterizationStudy Date: 09/15/17Referring Physician:Ritesh Marlowergies:Coded Allergies:OXYCODONE (From PERCOCET) (09/14/17)Summary:Cardiac catheterization report:Reason for study:This 52 years old white female patient presented with shortness of breath, chest painsuggestive of unstable angina. She underwent dorbutamine stress echocardiogram which isabnormal. Cardiac catheterization was recommended. Cardiac risk factors includes morbidobesity, with BMI48.6 kg/M2, hypertension, and possible sleep apnea syndrome.Procedure done:Cardiac Catheterization was performed through the left radial artery approach due tomorbid obesity- Left heart catheterization.- Selective coronary artery angiography.- Left ventricle angiography.Procedure technique:Informed consent was obtained prior to any sedation regarding cardiac catheterization andpossible coronary revascularization. Alternatives, risks, benefits, and manner ofprocedure, were discussed in detail. Risks of procedure includes but not limited to suddencardiac , heart attack, stroke, damage to the femoral artery, vein, nerve, kidney,medication side effects or allergic reaction etc. Patient agreed to proceed further withfull understanding. Patient was brought in fasting state to the cardiac catheterizationlab.Patient was given option of femoral artery, as well as radial arterial approach forcardiac catheterization and patient elected radial approach. Both radial arteries wereevaluated by Darren test and it showed sufficient bilateral ulnar arteries with adequatepalmar arch with circulation to the hands. 2% lidocaine without epinephrine was used forlocal anesthetic purposes to the right radial arterial site. Using a micropuncture needle, right radial arterial access was obtained by modified Seldinger technique with anteriorwall puncture only and 4 Vietnamese hemostatic sheath was inserted over wire in the rightradial artery. Through the right radial arterial sheath, 3000 units of heparin, 200 gnitroglycerin, and 2500 g of verapamil was given in radial sheath and was flushed withsaline bolus of 10 ml. initially day use 0.035' wire and advanced to the radial arterialsheath, but it was not advanced in through the proximal portion of the forearm radialartery. Subsequently, I use 0.035' J-tipped Glidewire and advanced without any difficultyand 4 Vietnamese AL 2 catheter was advanced over wire through the right radial arterial sheathto ascending aorta. Aortic valve was crossed without any difficulty. Proper Left hearthemodynamics were measured. Left ventriculography was performed in MONSALVE view. Catheterwas flushed and aortic valve pullback was recorded. 4 Vietnamese AL 2 catheter wasselectively engaged in the left main coronary artery and an right coronary artery andselective coronary angiography was performed in various views left coronary arteryangiography was performed 4 Vietnamese AL2 catheter was unsuccessful for Right coronary arteryintubation. 4 Vietnamese JR4 catheter was exchanged over a wire and catheter was engaged inthe RCA without any arterial dampening and right coronary artery angiography wasperformed. At the end of procedure, radial arterial sheath was removed and Hemoband wasapplied with the standard precaution and adequate hemostasis was achieved at radial arterypuncture site. Patient tolerated the procedure well in cardiac catheterization lab withoutany immediate complication.Analysis of data:Left heart hemodynamics:Left ventricular systolic pressure 153 mm of Hg and left ventricular end-diastolicpressure 25-30 mm of Hg. There is no any significant gradient across the aortic valve onaortic pullback.Left ventriculography:Left ventricle is mildly to moderately dilated with moderate global hypokinesis with LVejection fraction 35-40%.Selective coronary artery angiography:Left main coronary artery:Large-caliber trunk without any significant disease.Left circumflex artery:Nondominant vessel, large caliber vessel in the proximal segment and small caliber vesselin the mid and distal segment.OM1: Principal marginal branch. it is a large caliber branching, elongated vessel withoutsignificant disease.Distal OM: tiny and short.Left anterior descending artery:Large-caliber vessel and proximal segment, medium caliber vessel in the mid segment andsmall-caliber vessel distally without any significant disease .Diagonal #1 and #2: They are coming off in the immediate vicinity of first septal origin.Both diagonal branches are small caliber elongated vessel without significant disease.Diagonal 3: very small-caliber, elongated vessel without significant disease.Septal yardage caller #1: Small caliber elongated branching vessel without any significantdisease.Right coronary artery:Dominant vessel, large caliber vessel in proximal, mid, and distal segment withoutsignificant disease.Right PDA: Medium caliber elongated vessel without significant disease.RPL 1 and 2 and 3: Tiny caliber short vessel.RPL #4: Principal RPL branch, and it is a small caliber elongated vessel withoutsignificant disease.Distal RPL branch: Small caliber, medium in length vessel without any significant disease.Tiny linear dissection during right coronary artery angiography on right coronary cuspswithout any further progression during 10 minutes observation in cardiac catheterizationlab..Conclus ion:Dilated cardiomyopathy with LV ejection fraction 35.40%.Elevated left ventricular end-diastolic pressure 25-30 mmHgNormal epicardial coronary arteriesRecommendation:Eula gement for congestive heart failure and dilated cardiomyopathy.Aggressive medical management and cardiac risk factors intervention.DisclaimerThis dictation was created using voice recognition software.Phonetic and/or minor grammatical errors may exist.eSign Date and TimePatel,Saran Kate MD Verified/Reviewed by 09/19/17 1331 Normal [facility] Alanine aminotransferase (ALT) 48 U/L Normal 13 - 61 [iU]/L [facility] Comment on above: Order Comment: Vannesa s: M Result Comment: RESU LTS MAY BE FALSELY DEPRESSED AFTER THE ADMINISTRATION OFSULFASALAZINE AND/OR SULFAPYRIDINE. Performed By: #### L 200.01713, L550.63750 ####[facility] [id number] [place], [place] [address]Yr# [phone] Albumin 2.9 g/dL Abnormal 3.2 - 5.0 {GM/DL} [facility] Comment on above: Order Comment: Niravu s: M Performed By: #### L 200.37292, L550.52953 ####[facility] [address] [place], [place] [address]Hc# [phone] Albumin/Globulin Ratio 1.0 {ratio} Normal 0.8 - 2.0 [facility] Comment on above: Order Comment: Campu s: M Performed By: #### L 200.52786, L550.22453 ####[facility] [address] [place], [place] [address]Vx# [phone] ALK PHOS 52 U/L Normal 45 - 117 U/L [facility] Comment on above: Order Comment: Campu s: M Performed By: #### L 200.80093, L550.76799 ####[facility] [address] [place], [place] [address]Ca# [phone] Anion gap 11 mmol/L Normal 5-16 [facility] Comment on above: Order Comment: Campu s: M Performed By: #### L 200.49347, L550.97946 ####[facility] [address] [place], [place] [address]Bh# [phone] BILI TOTAL 1.6 MG/DL High 0.2-1.0 [facility] Comment on above: Order Comment: Campu s: M Performed By: #### L 200.01982, L550.17525 ####[facility] [address]IR[address] [place], [place] [address]Hq# [phone] BUN/Creatinine Ratio 20 mg/mg Normal 15 - 24 [facility] Comment on above: Order Comment: Campu s: M Performed By: #### L 200.95170, L550.80425 ####[facility] [address] [place], [place] [address]Ce# [phone] Calcium 8.1 mg/dL Abnormal 8.5 - 10.1 mg/dL [facility] Comment on above: Order Comment: Campu s: M Performed By: #### L 200.65756, L550.89160 ####[facility] [address]JY[address]HSB[address] [place], [place] [address]Yb# [phone] Chloride 107 mmol/L Normal 98 - 107 mmol/L [facility] Comment on above: Order Comment: Campu s: M Performed By: #### L 200.89821, L550.29962 ####[facility] [address] [place], [place] [address]Id# [phone] CO2 25 mmol/L Normal 21 - 32 mmol/L [facility] Comment on above: Order Comment: Campu s: M Performed By: #### L 200.09873, L550.49810 ####[facility] [address] [place], [place] [address]Aj# [phone] Creatinine 0.598 mg/dL Normal 0.510 - 0.950 mg/dL [facility] Comment on above: Order Comment: Campu s: M Result Comment: Sammi ents receiving either N-Acetylcysteine (NAC) orMetamizole prior to venipuncture, may have falsely depressedresults. Performed By: #### L 200.16191, L550.56503 ####[facility] [address] [place], [place] [address]Jx# [phone] Globulin 2.9 g/dL Normal 2.2-4.2 [facility] Comment on above: Order Comment: Campu s: M Performed By: #### L 200.47481, L550.77692 ####[facility] [address] [place], [place] [address]Kq# [phone] Glucose mass conc 145 mg/dL Abnormal 70 - 100 mg/dL [facility] Comment on above: Order Comment: Campu s: M Result Comment: 70-1 00- Normal Fasting; 100-125 Impaired Fasting; greaterthan 126 on more than one result- Diabetes. ADA guidelines.Results may be falsely elevated after the administration ofSulfapyridine.Results may be falsely depressed after the administration ofSulfasalazine. Performed By: #### L 200.87155, L550.66389 ####[facility] [address] [place], [place] [address]Ip# [phone] Potassium molar conc 3.6 mmol/L Normal 3.5 - 5 .1 mmol/L [facility] Comment on above: Order Comment: Campu s: M Performed By: #### L 200.44047, L550.40249 ####[facility] [address] [place], [place] [address]Wu# [phone] Protein 5.8 g/dL Abnormal 6.0 - 8.5 {GM/DL} [facility] Comment on above: Order Comment: Campu s: M Performed By: #### L 200.15218, L550.77923 ####[facility] [address] [place], [place] [address]Io# [phone] SGOT (AST) 26 U/L Normal 8-34 [facility] Comment on above: Order Comment: Campu s: M Result Comment: RESU LTS MAY BE FALSELY DEPRESSED AFTER THE ADMINISTRATION OFSULFASALAZINE AND/OR SULFAPYRIDINE. Performed By: #### L 200.55003, L550.52763 ####[facility] [address] [place], [place] [address]Dm# [phone] Sodium 142 mmol/L Normal 136 - 145 mmol/L [facility] Comment on above: Order Comment: Campu s: M Performed By: #### L 200.30402, L550.08036 ####[facility] [address] [place], [place] [address]Xj# [phone] Urea nitrogen 12 mg/dL Normal 7 - 26 mg/dL [facility] Comment on above: Order Comment: Campu s: M Performed By: #### L 200.18404, L550.26343 ####[facility] [address] [place], [place] [address]Fj# [phone] GFR ESTon 09-16-2017 IF AMER Greater than 60 Normal [facility] Comment on above: Order Comment: Campu s: M Performed By: #### L 200.57395, L550.26197 ####[facility] [address] [place], [place] [address]Yu# [phone] IF non-AFR AMER Greater than 60 Normal [facility] Comment on above: Order Comment: Campu s: M Performed By: #### L 200.29541, L550.46577 ####[facility] [address] [place], [place] [address]Ka# [phone] Laboratory - Chemistry and C hemistry - challengeon 09-16-2017 Anion gap [Moles/Vol] 11 mmol/L Normal 5 - 16 mmol/L [facility]; [facility]. Work Phone: AST [Catalytic activity/Vol] 26 U/L Normal 8 - 34 U/L [facility]; [facility]. Work Phone: Globulin (S) [Mass/Vol] 2.9 g/dL Normal 2.2 - 4.2 {GM/DL} [facility]; [facility]. Work Phone: Magnesium [Mass/Vol] 1.6 mg/dL Abnormal 0.2 - 1 .0 mg/dL [facility] Cent[facility]; [facility] [facility]. Work Phone: MAGNESIUMon 09-16-2017 Magnesium 2.2 mg/dL Normal 1.6 - 2.6 mg/dL [facility] Comment on above: Order Comment: Vannesa ramirez: M Performed By: #### L 200.13339, L550.44108 ####[facility] [address] [place], [place] [address]Mu# [phone] No Panel Informationon 09-16 Performing Lab See Note Normal [facility]; [facility]. Work Phone: DSon 09-15-2017 DISCHARGE SUMMARY Normal [facility] DS DATE OF ADMISSION: 09/15/2017DATE OF DISCHARGE: 09/16/2017HISTORY: This is a 52-year-old female with a history of shortness of breath, dyspneaon exertion and chest pain, whose stress echo was compatible with triple-vesselcoronary disease. The night prior to her admission, she developed more severe chestpain and she was admitted to the hospital to undergo a cardiac catheterization with arule out of coronary disease. The cardiac catheterization showed normal coronaryarteries and was compatible with a cardiomyopathy with an ejection fraction of 30%.Her beta-kimberly was changed to carvedilol and her losartan was increased to 100 mg.Spironolactone was added also as well as Lipitor. Besides her obesity andcardiomyopathy, she also has a history that is very suggestive of sleep apnea. Sheis going to have a sleep study as an outpatient. She will be reporting her vitalsigns to me every day. All her questions and concerns were addressed. Ritesh Marlow, MDRN/[id number]: 09/16/2017 14:15DT: 09/16/2017 14:59SSI File#: [id number] #: [id number]/Reviewed by10/01/17 1307 GRZEGORZ [facility] PATIENT NAME: REBEKAH JOHNSON [facility] [address] [facility] REC #: [id number], [place] [address] DATE: 09/15/17DISCHARGE DATE: 09/16/17DISCHARGE SUMMARY ATTENDING PHY: Ritesh Marlow MD [facility] EKGon 09-15-2017 EKG Procedure Date and T mihai: 09/15/17 1244Test Reason : RTBlood Pressure : / mmHGVent. Rate : 069 BPM Atrial Rate : 069 BPMP-R Int : 150 ms QRS Dur : 106 msQT Int : 450 ms P-R-T Axes : 051 065 033 degreesQTc Int : 482 msNormal sinus rhythmProlonged QTAbnormal ECGNo previous ECGs availableConfirmed by MD TREMAYNE, SARAN ([id number]) on 09/17/2017 5:29:02 PMReferred By: Greg Hines Overread By: SARAN CASPER MD M.D.DDandT: 09/15/17 1244TDandT:[facility] PATIENT NAME: REBEKAH JOHNSON [facility] MEDICAL REC #: [id number], [place] [address] DATE: 09/15/17DISCHARGE DATE: 09/16/17TTENDING PHY: Ritesh Marlow MDELECTROCARDIOGRAM REPORTCLBcc:[facility] PATIENT NAME: REBEKAH JOHNSON [address] [address] REC #: [id number], [place] [address] DATE: 09/15/17DISCHARGE DATE: 09/16/17TTENDING PHY: Ritesh Marlow MDELECTROCARDIOGRAM REPORT Normal [facility] EKG Procedure Date and T mihai: 09/16/17 0554Test Reason : RTBlood Pressure : / mmHGVent. Rate : 061 BPM Atrial Rate : 061 BPMP-R Int : 156 ms QRS Dur : 104 msQT Int : 482 ms P-R-T Axes : 051 070 079 degreesQTc Int : 485 msNormal sinus rhythmNon-specific ST and T wave changesProlonged QTAbnormal ECGWhen compared with ECG of 15-SEP-2017 12:44,no any significant changeConfirmed by MD TREMAYNE, SARAN ([id number]) on 09/17/2017 5:35:29 PMReferred By: Greg Hines Overread By: SARAN CASPER MD M.D.DDandT: 09/16/17 0554TDandT:[facility] PATIENT NAME: REBEKAH JOHNSON [facility] MEDICAL REC #: [id number], [place] [address] DATE: 09/15/17DISCHARGE DATE: 09/16/17TTENDING PHY: Ritesh Marlow MDELECTROCARDIOGRAM REPORTCLDeaconess Health System:[facility] PATIENT NAME: REBEKAH JOHNSON [facility] [address] [facility] MEDICAL REC #: [id number], [place] [address] DATE: 09/15/17DISCHARGE DATE: 09/16/17TTENDING PHY: Ritesh Marlow MDELECTROCARDIOGRAM REPORT Normal [facility] ELECTROCARDIOGRAM REPORT Normal [facility] HPon 09-15-2017 REASON FOR ADMISSION : Shortness of breath, chest pain, unstable angina.HISTORY: This is a 52-year-old female without prior history of coronary disease whoapproximately 2 weeks ago had some chest discomfort and shortness of breath whichcaused her to be less active than normal. She thought it was a pneumonia and simplystayed at home. She called yesterday complaining of worsening of the shortness ofbreath and I saw her as an outpatient. She had a CBC, CMP, and troponins which werenormal. Her C-reactive protein was elevated at 12. She had an echo that showeddiffuse hypokinesia, suggestive of triple-vessel disease. She was hypertensive. Iplaced her on losartan 25 mg p.o. b.i.d. and increased the atenolol to 50 mg p.o.b.i.d. She was sent home with an appointment to be followed by cardiology as anoutpatient; however, earlier this morning, she called with chest tightness and thesame difficulty with shortness of breath that she had experienced 2 weeks ago. Shealso felt nauseated. There is no history of orthopnea, nocturnal paroxysmal dyspnea,or syncope. She has a strong family history of coronary disease.PAST MEDICAL HISTORY: Adult-onset diseases. Obesity, hypertension, and possiblesleep apnea.OPERATIONS: Two hernia repairs, 2 C-sections, and cholecystectomy.MEDICATIONS :1. Atenolol 50 mg p.o. b.i.d.2. Losartan 50 mg p.o. b.i.d.3. Ecotrin 81 mg p.o. daily.ALLERGIES: PERCOCET causes her to vomit.FAMILY HISTORY: Grandfather and uncle on her father's side from heart attacks.Her mother from a heart attack and her initial event occurred when she was 67.She at the age of 79. Her father is still alive at 74.REVIEW OF SYSTEMS:HEENT: She has some haziness in both eyes. No tinnitus, vertigo, epistaxis, orallergies.Respiratory: She gets short of breath with mild activity. No chronic cough orexpectoration. She does not sleep well and tends to doze during the day. She alsofeels that she does not get full sleep and does not feel rested. says thatshe snores and stops breathing at night.Cardiac: See HPI.Gastrointestinal: Has a history of fissures. She had a colonoscopy about 8 yearsago and it was negative. There is no history of upper or lower GI bleeding,jaundice, or hepatitis.Hematology/oncolo gy: No clotting or bleeding disorders.Urinary: No hesitancy, frequency, or burning on urination. [facility] PATIENT NAME: REBEKAH JOHNSON [facility] [address] REC #: [id number], [place] [address] DATE: 09/15/17DISCHARGE DATE:HISTORY and PHYSICAL ATTENDING MARC: Ritesh MarlowHYSICAL EXAMINATION:General: This is a well-developed, morbidly obese female who appears in no acutedistress.HEENT: Normocephalic. Good oral hygiene. She has upper and lower dentures. Pupilsare equal and reactive. There are no carotid bruits.Lungs: Clear to auscultation anteriorly.Heart: The rhythm is regular with occasional irregularities. There are no murmursor gallops.Abdomen: Obese, soft, depressible. No tenderness. Good peristalsis.Extremities: Varicose veins in the anterior medial aspect of the right leg. Thepulses are symmetrical and strong in all 4 extremities.ASSESSMENT: This patient has unstable angina and may have a non-ST elevationmyocardial infarction or an evolving myocardial infarction. She is going to need acardiac catheterization and possible intervention or surgery depending on heranatomy. I have discussed with her and her family the plan and they are agreeable. Ritesh Marlow, [facility]OSPITALN/[id number]: 09/15/2017 11:32DT: 09/15/2017 12:53SSI File#: [id number] #: [id number]/Reviewed by09/16/17 Tari LANTIGUA [facility] PATIENT NAME: REBEKAH JOHNSON [facility] [address] [facility] REC #: [id number], [place] [address] DATE: 09/15/17DISCHARGE DATE:HISTORY and PHYSICAL ATTENDING PHY: Ritesh Marlow MD Normal [facility] No Panel Informationon 09-15 Performing Lab See Note [facility].; [facility]. Work Phone: TROPONIN Ion 09-15-2017 Troponin I.cardiac mass conc 0.028 ng/mL Normal 0.000 - 0.045 ng/mL [facility] Comment on above: Order Comment: Vannesa s: M: PHLEB TO DRAW Performed By: #### L 200.49174, L550.45932 ####[facility] [id number] [place], [place] [address]Ed# [phone] CARDIAC CRP HSon 09-14-2017 CARDIAC CRP HS 12.400 MG/L High 0-3.0 [facility] Comment on above: Result Comment: Less than 1.0 mg/L = Low relative risk for CVD1.0 - 3.0 mg/L = Average relative risk for CVDGreater than 3.0 mg/L = High relative risk for CVD Performed By: #### L 500.41414, L500.26555, L500.86765, L550.63777 ####[facility] [address]UN[address] [place], [place] [address]Tk# [phone] CBCon 09-14-2017 Erythrocyte distribution width Auto Ratio (RBC) 14.8 % High 11-14.5 [facility] Comment on above: Performed By: #### L 200.64469, L550.13647 ####[facility] [address] [place], [place] [address]Rx# [phone] Erythrocytes (RBC) 4.54 M/CU MM Normal 3.90-5.30 [facility] Comment on above: Performed By: #### L 200.66156, L550.99732 ####[facility] [address] [place], [place] [address]Ef# [phone] Erythrocytes (RBC) 0.0 % Normal Less than 1 [facility] Comment on above: Performed By: #### L 200.08796, L550.69385 ####[facility] [address] [place], [place] [address]Jw# [phone] Hematocrit (HCT) 41.0 % Normal 35.0-47.0 [facility] Comment on above: Performed By: #### L 200.88804, L550.72515 ####[facility] [address]ZE[address] [place], [place] [address]Uj# [phone] Hemoglobin mass conc (Bld) 13.0 g/dL Normal 11.5-15.5 [facility] Comment on above: Performed By: #### L 200.72878, L550.08286 ####[facility] [address]TAI[address] [place], [place] [address]Wr# [phone] MCHC mass conc (RBC) 31.7 g/dL Low 32.0-36.0 [facility] Comment on above: Performed By: #### L 200.17189, L550.83444 ####[facility] [address] [place], [place] [address]Sq# [phone] MCV 90.3 fL Normal 80.0-99.0 [facility] Comment on above: Performed By: #### L 200.35467, L550.91739 ####[facility] [address] [place], [place] [address]Ts# [phone] Platelet mean volume (PMV) 9.5 fL Normal 9.4-12.4 [facility] Comment on above: Performed By: #### L 200.69529, L550.21083 ####[facility] [address] [place], [place] [address]Wm# [phone] Platelets 236 K/CU MM Normal 150-450 [facility] Comment on above: Performed By: #### L 200.34588, L550.55248 ####[facility] [address] [place], [place] [address]Pd# [phone] WBC (Leukocytes) 8.9 K/CU MM Normal 4.5-11.0 [facility] Comment on above: Performed By: #### L 200.17272, L550.16882 ####[facility] [address] [place] [id number]# [phone] CDLSTRESSon 09-14-2017 CARDIAC STRESS TEST REPORT Normal [facility] CDLSTRESS INTERPRETING PHYSICI AN: JOSELUIS EdgarENDING PHYSICIAN: Ritesh DillardaORDERING/REFERRING PHYSICIAN:DATE OF STUDY: 09/14/2017TECH #: 14 MMC: X MOBILE:Weight: 284 lbs. Height: 64 ins. BP: 156/82 HR: 78DIAGNOSIS/REASON FOR STUDY: DYSPNEA, ANGINAStress Echo: Dobutamine Stress Echo: X2-D: M-Mode: Color Flow Doppler:Transesophageal: Definity: XACTUALVALUES ADULTSCHILDREN1. Aortic Valve Normal: Abnormal:Aortic Value Systolic Opening 1.5 - 2.5cm.Aortic Root Dimension 2.0 - 4.0cm.B. Left Atrial Diameter < 4.0cm.C. Left VentricleEnd Diastolic Diameter < 5.5cm.End Systolic Diameter < 3.5cm.D. Right VentricleEnd Diastolic Diameter < 2.5cm.E. Septal Wall ThicknessEnd Diastole < 1.3cm.SystoleF. Posterior Wall Thickness < 1.3cm.End DiastoleEnd SystoleINTERPRETATION: The patient underwent dobutamine stress echocardiography using astandard protocol. The patient was first placed in the prone position where [facility] PATIENT NAME: REBEKAH JOHNSON [facility] REC #: [id number], [place] [address] DATE:DISCHARGE DATE:ATTENDING PHY: Ritesh Marlow MDCARDIAC STRESS TEST REPORTechocardiographic images were obtained in the parasternal long axis, parasternalshort axis, four chamber, and apical two chamber views. The patient then underwentdobutamine stress testing using a standard protocol. At maximum heart rate, theechocardiographic images were repeated, and compared to those obtained at rest.Definity echocontrast was used.The baseline echocardiographic images were abnormal. Image quality was not ideal tali large patient. In the parasternal long axis views, global hypokinesis was present.In addition, global hypokinesis with questionable inferior akinesis was seen in theparasternal short axis views. Global hypokinesis was also present in both the apical4 and apical 2 chamber views. The ejection fraction at rest was 40%.The baseline 12-lead EKG showed normal sinus rhythm with no evidence of pastinfarction and no ischemic changes. The patient underwent dobutamine stress testingusing a standard dobutamine dose titrated up in stages to a ceiling dose of 50 mcgper kg per minute. In addition, 1 mg of IV atropine was used. At peak dobutamineinfusion the blood pressure did not significant change. The heart rate increasedfrom 76 to 141 beats per minute. No chest pain occurred. Occasional single PVCsoccurred. No ST segment changes occurred. The test was felt to be bothsymptomatically and electrocardiographically negative for ischemia, at a cardiacworkload equivalent to 87% of the maximum predicted heart rate.At maximum heart rate, the repeat echocardiographic images were significantlyabnormal. Image quality in the parasternal long axis views was unfortunately notadequate. In the parasternal short axis views wall motion of all wall segments notonly did not appear better with dobutamine, but actually appeared to worsen. In theapical 2 chamber views the proximal inferior wall, and the anterior wall bothappeared to demonstrate either no improvement or actual worsening in contractility atpeak heart rate. These images certainly would suggest potential significantunderlying coronary artery disease. The echocardiographic stress was considered hsilpa grossly abnormal.FINAL IMPRESSION: Symptomatically negative, electrocardiographically negative, andechocardiographically markedly abnormal dobutamine stress echocardiogram for ischemiaat an appropriate heart rate response to chemical stress testing. ____S Micah Baron [facility]/[id number]: 09/14/2017 15:03DT: 09/14/2017 15:42SSI File#: [id number] #: [id number]: Ritesh Marlow [facility] PATIENT NAME: REBEKAH JOHNSON Francine Lees MEDICAL REC #: [id number], [place] [address] DATE:DISCHARGE DATE:ATTENDING PHY: Ritesh Marlow [facility] PRYORARDIAC STRESS TEST REPORTVerified/Reviewed by09/24/307158 [facility] PATIENT NAME: REBEKAH JOHNSON Francine Lees MEDICAL REC #: [id number], [place] [address] DATE:DISCHARGE DATE:ATTENDING PHY: Ritesh Marlow [facility] PRYORARDIAC STRESS TEST REPORT Normal [facility] CMPon 09-14-2017 Alanine aminotransferase (ALT) 76 U/L High 13- [facility] Comment on above: Result Comment: RESU LTS MAY BE FALSELY DEPRESSED AFTER THE ADMINISTRATION OFSULFASALAZINE AND/OR SULFAPYRIDINE. Performed By: #### L 500.07161, L500.53609, L500.10823, L550.25368 ####[facility] [id number] [place], [place] [address]Ta# [phone] Albumin 3.4 g/dL Normal 3.2-5.0 [facility] Comment on above: Performed By: #### L 500.91794, L500.30088, L500.92771, L550.20774 ####[facility] [id number] [place], [place] [address]Li# [phone] Albumin/Globulin Ratio 1.0 {ratio} Normal 0.8-2.0 [facility] Comment on above: Performed By: #### L 500.28450, L500.24209, L500.28005, L550.50475 ####[facility] [id number] [place], [place] [address]Np# [phone] ALK PHOS 68 U/L Normal 45-117 [facility] Comment on above: Performed By: #### L 500.85029, L500.67439, L500.00876, L550.27826 ####[facility] [id number] [place], [place] [address]Xy# [phone] Anion gap 8 mmol/L Normal 5-16 [facility] Comment on above: Performed By: #### L 500.31550, L500.86006, L500.29963, L550.51780 ####[facility] [id number] [place], [place] [address]St# [phone] BILI TOTAL 1.3 MG/DL High 0.2-1.0 [facility] Comment on above: Performed By: #### L 500.88491, L500.28570, L500.97560, L550.72052 ####[facility] [id number] [place], [place] [address]Dk# [phone] BUN/Creatinine Ratio 20 mg/mg Normal 15-24 [facility] Comment on above: Performed By: #### L 500.97887, L500.94277, L500.26955, L550.58549 ####[facility] [id number] [place], [place] [address]Iq# [phone] Calcium 8.4 mg/dL Low 8.5-10.1 [facility] Comment on above: Performed By: #### L 500.81348, L500.86834, L500.20311, L550.64904 ####[facility] [id number] [place], [place] [address]Oo# [phone] Chloride 108 mmol/L High 98-107 [facility] Comment on above: Performed By: #### L 500.13386, L500.30407, L500.01282, L550.23720 ####[facility] [id number] [place], [place] [address]Nt# [phone] CO2 26 mmol/L Normal 21-32 [facility] Comment on above: Performed By: #### L 500.70611, L500.76521, L500.57925, L550.30142 ####[facility] [id number] [place], [place] [address]Id# [phone] Creatinine 0.646 mg/dL Normal 0.510-0.950 [facility] Comment on above: Result Comment: Sammi ents receiving either N-Acetylcysteine (NAC) orMetamizole prior to venipuncture, may have falsely depressedresults. Performed By: #### L 500.85525, L500.40974, L500.67404, L550.13909 ####[facility] [id number] [place], [place] [address]Eg# [phone] Globulin 3.3 g/dL Normal 2.2-4.2 [facility] Comment on above: Performed By: #### L 500.86338, L500.83949, L500.66472, L550.55103 ####[facility] [id number] [place], [place] [address]Yy# [phone] Glucose mass conc 104 mg/dL High 70-100 [facility] Comment on above: Result Comment: 70-1 00- Normal Fasting; 100-125 Impaired Fasting; greaterthan 126 on more than one result- Diabetes. ADA guidelines.Results may be falsely elevated after the administration ofSulfapyridine.Results may be falsely depressed after the administration ofSulfasalazine. Performed By: #### L 500.82682, L500.18639, L500.43042, L550.92426 ####[facility] [id number] [place], [place] [address]Be# [phone] Potassium molar conc 4.0 mmol/L Normal 3.5-5.1 [facility] Comment on above: Performed By: #### L 500.90148, L500.57540, L500.31196, L550.86785 ####[facility] NVTRKVYFTJ[address] [place], [place] [address]Yi# [phone] Protein 6.7 g/dL Normal 6.0-8.5 [facility] Comment on above: Performed By: #### L 500.16395, L500.79757, L500.50808, L550.82663 ####[facility] [id number] [place], [place] [address]Pm# [phone] SGOT (AST) 53 U/L High 8-34 [facility] Comment on above: Result Comment: RESU LTS MAY BE FALSELY DEPRESSED AFTER THE ADMINISTRATION OFSULFASALAZINE AND/OR SULFAPYRIDINE. Performed By: #### L 500.77212, L500.28668, L500.91716, L550.43725 ####[facility] [id number] [place], [place] [address]Ro# [phone] Sodium 142 mmol/L Normal 136-145 [facility] Comment on above: Performed By: #### L 500.20331, L500.52798, L500.60710, L550.79009 ####[facility] [id number] [place], [place] [address]Uk# [phone] Urea nitrogen 13 mg/dL Normal 7-26 [facility] Comment on above: Performed By: #### L 500.30625, L500.02448, L500.94633, L550.71164 ####[facility] [id number] [place], [place] [address]Ci# [phone] GFR ESTon 09-14-2017 IF AMER Greater than 60 Normal [facility] Comment on above: Performed By: #### L 500.02430, L500.09888, L500.10720, L550.89771 ####[facility] [id number] [place], [place] [address]Eg# [phone] IF non-AFR AMER Greater than 60 Normal [facility] Comment on above: Performed By: #### L 500.50689, L500.31099, L500.57282, L550.81353 ####[facility] [id number] [place], [place] [address]Gt# [phone] HGB A1C GLYCOHBon 09-14-2017 Hemoglobin A1c/Hemoglobin.total mass fraction (Bld) 5.8 % Normal 4.3-6.0 [facility] Comment on above: Performed By: #### L 200.58473, L550.04704 ####[facility] [id number] [place], [place] [address]Lt# [phone] LIPIDon 09-14-2017 Cholesterol 175 mg/dL Normal 0-199 [facility] Comment on above: Performed By: #### L 500.91811, L500.94375, L500.03805, L550.94245 ####[facility] [id number] [place], [place] [address]Io# [phone] HDL Cholesterol 39 mg/dL Low [place] 40 [facility] Comment on above: Result Comment: Sammi ents receiving Metamizole prior to venipuncture, mayhave falsely depressed results. Performed By: #### L 500.26750, L500.63730, L500.16268, L550.29571 ####[facility] [id number] [place], [place] [address]Bm# [phone] LDL Cholesterol 113 MG/DL Normal 0-129 [facility] Comment on above: Result Comment: ___C HOLESTEROL/HDL RATIO RISK___ CHD RISK = Total CHOL LDL HDL (CHOL/HDL) -----Recommended <200 <130 >35 <3.4 B orderline 200-239 130-159 3.4-4.99 ---High >240 >160 >5.0 Performed By: #### L 500.41200, L500.54292, L500.87309, L550.71278 ####[facility] [id number] [place], [place] [address]Bo# [phone] Triglyceride 112 mg/dL Normal 30-149 [facility] Comment on above: Result Comment: Sammi ents receiving either N-Acetylcysteine (NAC) orMetamizole prior to venipuncture, may have falsely depressedresults. Performed By: #### L 500.45714, L500.31689, L500.49484, L550.47831 ####[facility] [id number] [place], [place] [address]Wr# [phone] TROPONIN Ion 09-14-2017 Troponin I.cardiac mass conc 0.030 ng/mL Normal 0.000-0.045 [facility] Comment on above: Performed By: #### L 550.06001 ####[facility] [id number] [place] [address]On# [phone] UA COMPLETEon 09-14-2017 UA APPEARANCE CLOUDY Normal CLEAR [facility] Comment on above: Performed By: #### L 600.96804, L600.96484 ####[facility] [id number] [place] [address]Jt# [phone] UA BILIRUBIN Negative Normal NEGATIVE [facility] Comment on above: Performed By: #### L 600.46646, L600.86215 ####[facility] [id number] [place] [address]Nx# [phone] UA BLOOD Negative Normal NEGATIVE [facility] Comment on above: Performed By: #### L 600.23749, L600.83729 ####[facility] [id number] [place] [address]Dj# [phone] UA COMMENT UA MICROSCOPIC Normal N [facility] Comment on above: Performed By: #### L 600.82784, L600.21868 ####[facility] [id number] [place] [address]Ov# [phone] UA KETONE Negative Normal NEGATIVE [facility] Comment on above: Performed By: #### L 600.45429, L600.08904 ####[facility] [id number] [place] [address]Qr# [phone] UA LK ESTERASE MODERATE Normal NEGATIVE [facility] Comment on above: Performed By: #### L 600.01008, L600.52971 ####[facility] [id number] [place] [address]Bq# [phone] UA NITRITE Negative Normal NEGATIVE [facility] Comment on above: Performed By: #### L 600.56148, L600.45064 ####[facility] [id number] [place], [place] [address]Es# [phone] UA PH 6.0 Normal 5-6 [facility] Comment on above: Performed By: #### L 600.09027, L600.97513 ####[facility] [id number] [place] [address]Sh# [phone] UA PROTEIN 30 MG/DL Normal NEGATIVE [facility] Comment on above: Performed By: #### L 600.62276, L600.63976 ####[address] [address]Dw# [phone] UA SPEC GRAV 1.021 Normal 1.005-1.030 [facility] Comment on above: Performed By: #### L 600.67037, L600.93629 ####[address] [address]Hd# [phone] UA UROBILINOGEN NORMAL Normal NORMAL [facility] Comment on above: Performed By: #### L 600.11248, L600.29672 ####[address] [address]Ss# [phone] Urine, color YELLOW Normal [facility] Comment on above: Performed By: #### L 600.51058, L600.97417 ####[address] [address]Bn# [phone] Urine, glucose Negative Normal NORMAL [facility] Comment on above: Performed By: #### L 600.69900, L600.75666 ####[address] [address]Xw# [phone] UA MICROSCOPICon 09-14-2017 EPITH CELLS 25 EPI/HPF High 0-5 [facility] Comment on above: Performed By: #### L 600.29690, L600.83879 ####[facility] [id number] [place], [place] [address]Ph# [phone] UA WBC 12 WBC/HPF High 0-5 [facility] Comment on above: Performed By: #### L 600.59401, L600.06389 ####[facility] [id number] [place], [place] [address]Mv# [phone] Urine, bacteria in sediment 4+ /HPF Normal NONE [facility] Comment on above: Performed By: #### L 600.43275, L600.00671 ####[facility] [id number] [place], [place] [address]Hj# [phone] Urine, erythrocytes 15 RBC/HPF High 0-3 [facility] Comment on above: Performed By: #### L 600.44993, L600.37788 ####[facility] [id number] [place], [place] [address]Qr# [phone] VOL OF UR SPUN 8 ML Normal [facility] Comment on above: Performed By: #### L 600.92560, L600.17069 ####[facility] [id number] [place], [place] [address]Hr# [phone] Laboratory - Blood bankon Albumin given [Vol] 3.9 g/dL Normal 3.2 - 4. 8 g/dL [facility], [facility], [facility]. Laboratory - Chemistry and C hemistry - challengeon 02-08-2015 Albumin/Globulin [Mass ratio] 1.3 {ratio} Normal 0.9 - 1.6 [facility].; [facility], [facility]. ALP [Catalytic activity/Vol] 76 U/L Normal 38 - 126 U/L [facility], [facility].; [facility], [facility]. ALT [Catalytic activity/Vol] 29 U/L Normal 10 - 49 U/L [facility], [facility].; [facility], [facility]. AST [Catalytic activity/Vol] 17 U/L Normal 8 - 34 U/L [facility], [facility].; [facility], [facility]. Base excess Calc (BldMV) [Moles/Vol] 3.0 meq/L Abnormal 4.0 - 15.0 meq/L [facility] Bilirubin direct and total panel [Mass/Vol] 0.9 mg/dL Normal 0.2 - 1.2 mg/dL [facility] Calcium [Mass/Vol] 9.2 mg/dL Normal 8.4 - 10. 1 mg/dL [facility] Chloride [Moles/Vol] 105 mmol/L Normal 98 - 11 0 meq/L [facility] Cholesterol [Mass/Vol] 190 mg/dL Normal 50 - 199 mg/dL [facility] Cholesterol in HDL [Mass/Vol] 38 mg/dL Abnormal 40 - 59 mg/dL [facility] Cholesterol in LDL [Mass/Vol] 121 mg/dL Normal 0 - 129 mg/dL [facility] CO2 [Moles/Vol] 32 mmol/L Normal 22 - 32 meq/L [facility] Creatinine [Mass/Vol] 0.51 mg/dL Normal 0.50 - 1.20 mg/dL [facility] Free T4 index Calc [Mass/Vol] 11.74 Normal 3.60 - 14.00 [facility], [facility] Work Phone: GFR/1.73 sq M.predicted among blacks MDRD (S/P/Bld) [Vol rate/Area] mL/min/{1.73_m2} Normal [facility], [facility] Work Phone: GFR/1.73 sq M.predicted among non-blacks MDRD (S/P/Bld) [Vol rate/Area] mL/min/{1.73_m2} Normal [facility] Work Phone: Globulin (S) [Mass/Vol] 3.1 g/dL Normal 1.5 - 3.8 g/dL [facility]; [facility] Glucose [Mass/Vol] 91 mg/dL Normal 70 - 110 mg/dL [facility] Iron [Mass/Vol] 45 ug/dL Normal 37 - 170 ug/dL [facility] Iron binding capacity [Mass/Vol] 316 ug/dL Normal 250 - 500 ug/dL [facility]; [facility] Iron saturation [Mass fraction] 14 % Normal [facility]; [facility] Potassium [Moles/Vol] 3.8 mmol/L Normal 3.5 - 5.0 meq/L [facility]; [facility] Protein [Mass/Vol] 7.0 g/dL Normal 6.0 - 8.5 g/dL [facility]; [facility] Sodium [Moles/Vol] 140 mmol/L Normal 136 - 145 meq/L [facility] T4 [Mass/Vol] 10.3 ug/dL Normal 4.8 - 13.9 ug/dL [facility]; [facility]. T4/Triiodothyronine (T3) uptake index [Mass ratio] 1.14 {ratio} Normal 0.76 - 1.23 {ratio} [facility]; [facility] Triglyceride [Mass/Vol] 155 mg/dL Abnormal 3 - 149 mg/dL [facility]; [facility] TSH Qn 1.94 m[IU]/L Normal 0.36 - 3.74 {mcIU/mL} [facility] Urea nitrogen [Mass/Vol] 13.0 mg/dL Normal 8.0 - 22.0 mg/dL [facility] Urea nitrogen/Creatinine [Mass ratio] 25.5 mg/mg Abnormal 10.0 - 22.0 [facility] Laboratory - Hematology and Cell countson 02-08-2015 Basophils/100 WBC (Bld) 0.4 % Normal 0.0 - 2.5 % [facility] Eosinophils/100 WBC (Bld) 1.3 % Normal 0.0 - 6.0 % [facility] Erythrocyte distribution width (RBC) [Ratio] 15.0 % Normal 11.5 - 15.5 % [facility] HbA1c (Bld) [Mass fraction] 5.8 % Normal 4.0 - 6.0 % [facility] Hematocrit (Bld) [Volume fraction] 42.0 % Normal 34.0 - 46.0 % [facility] Hemoglobin (Bld) [Mass/Vol] 13.7 g/dL Normal 12.0 - 16.0 g/dL [facility] Lymphocytes/100 WBC (Bld) 19.5 % Abnormal 20.0 - 40.0 % [facility], [facility] MCH (RBC) [Entitic mass] 28.8 pg Normal 27.0 - 33.0 pg [facility], [facility] MCHC (RBC) [Mass/Vol] 32.7 g/dL Normal 32.0 - 36.0 g/dL [facility], [facility] MCV (RBC) [Entitic vol] 88.0 fL Normal 80.0 - 99.0 fL [facility] Monocytes/100 WBC (Bld) 7.7 % Normal 2.0 - 13.0 % [facility], [facility] Neutrophils (Bld) [#/Vol] 7.00 {10_3/mcL} Normal 1.90 - 7.90 {10_3/mcL} [facility], [facility] Neutrophils/100 WBC (Bld) 71.1 % Normal 50.0 - 75.0 % [facility], [facility] Platelet mean volume (Bld) [Entitic vol] 7.8 fL Normal 6.6 - 10.5 fL [facility], [facility] Platelets (Bld) [#/Vol] 239 {10_3/mcL} Normal 150 - 450 {10_3/mcL} [facility], [facility]. RBC (Bld) [#/Vol] 4.77 {10_6/mcL} Normal 4.10 - 5.30 {10_6/mcL} [facility], [facility]. WBC (Bld) [#/Vol] 9.90 {10_3/mcL} Normal 4.50 - 10.80 {10_3/mcL} [facility].; [facility], [facility]. Laboratory - Blood bankon Albumin given [Vol] 4.2 g/dL Normal 3.2 - 4. 8 g/dL [facility].; [facility], [facility]. Laboratory - Chemistry and C hemistry - challengeon 11-25-2012 Albumin/Globulin [Mass ratio] 1.3 {ratio} Normal 0.9 - 1.6 [facility].; [facility], [facility]. ALP [Catalytic activity/Vol] 67 U/L Normal 38 - 126 U/L [facility] ALT [Catalytic activity/Vol] 44 U/L Normal 10 - 49 U/L [facility] AST [Catalytic activity/Vol] 22 U/L Normal 8 - 34 U/L [facility] Base excess Calc (BldMV) [Moles/Vol] 8.0 meq/L Normal 4.0 - 15.0 meq/L [facility] Bilirubin direct and total panel [Mass/Vol] 1.0 mg/dL Normal 0.2 - 1.2 mg/dL [facility] Calcium [Mass/Vol] 9.5 mg/dL Normal 8.4 - 10. 1 mg/dL [facility] Chloride [Moles/Vol] 105 mmol/L Normal 98 - 11 0 meq/L [facility], [facility]. Cholesterol [Mass/Vol] 203 mg/dL Abnormal 50 - 199 mg/dL [facility]. Cholesterol in HDL [Mass/Vol] 33 mg/dL Abnormal 40 - 59 mg/dL [facility]. Cholesterol in LDL [Mass/Vol] 138 mg/dL Abnormal 0 - 129 mg/dL [facility]. Cholesterol in VLDL [Mass/Vol] 32 mg/dL Normal [facility]. CO2 [Moles/Vol] 30 mmol/L Normal 22 - 32 meq/L [facility], [facility] Creatinine [Mass/Vol] 0.59 mg/dL Normal 0.50 - 1.20 mg/dL [facility] Free T4 index Calc [Mass/Vol] 12.06 Normal 3.60 - 14.00 [facility].; [facility], [facility] Work Phone: GFR/1.73 sq M.predicted among blacks MDRD (S/P/Bld) [Vol rate/Area] mL/min/{1.73_m2} Normal [facility].; [facility] [place], [facility]. Work Phone: GFR/1.73 sq M.predicted among non-blacks MDRD (S/P/Bld) [Vol rate/Area] mL/min/{1.73_m2} [facility].; [facility], [facility]. Work Phone: Globulin (S) [Mass/Vol] 3.3 g/dL Normal 1.5 - 3.8 g/dL [facility].; [facility], [facility]. Glucose [Mass/Vol] 125 mg/dL Abnormal 70 - 110 mg/dL [facility].; [facility], [facility]. Iron [Mass/Vol] 69 ug/dL Normal 37 - 170 ug/dL [facility].; [facility], [facility]. Iron binding capacity [Mass/Vol] 360 ug/dL Normal 250 - 500 ug/dL [facility].; [facility], [facility] Iron saturation [Mass fraction] 19 % Normal [facility]. Potassium [Moles/Vol] 3.9 mmol/L Normal 3.5 - 5.0 meq/L [facility].; [facility], [facility] Protein [Mass/Vol] 7.5 g/dL Normal 6.0 - 8.5 g/dL [facility], [facility]. Sodium [Moles/Vol] 143 mmol/L Normal 136 - 145 meq/L [facility].; [facility] T4 [Mass/Vol] 10.4 ug/dL Normal 4.8 - 13.9 ug/dL [facility] T4/Triiodothyronine (T3) uptake index [Mass ratio] 1.16 {ratio} Normal 0.76 - 1.23 {ratio} [facility] Triglyceride [Mass/Vol] 161 mg/dL Abnormal 3 - 149 mg/dL [facility] TSH Qn 1.31 m[IU]/L Normal 0.36 - 3.74 {mcIU/mL} [facility] Urea nitrogen [Mass/Vol] 10.0 mg/dL Normal 8.0 - 22.0 mg/dL [facility] Urea nitrogen/Creatinine [Mass ratio] 16.9 mg/mg Normal 10.0 - 22.0 [facility] Laboratory - Hematology and Cell countson 11-25-2012 Basophils/100 WBC (Bld) 0.2 % Normal 0.0 - 2.5 % [facility] Eosinophils/100 WBC (Bld) 2.0 % Normal 0.0 - 6.0 % [facility] Erythrocyte distribution width (RBC) [Ratio] 15.3 % Normal 11.5 - 15.5 % [facility] HbA1c (Bld) [Mass fraction] 5.9 % Normal 4.0 - 6.0 % [facility] Hematocrit (Bld) [Volume fraction] 41.3 % Normal 34.0 - 46.0 % [facility] Hemoglobin (Bld) [Mass/Vol] 13.5 g/dL Normal 12.0 - 16.0 g/dL [facility].; [facility], [facility]. Lymphocytes/100 WBC (Bld) 23.2 % Normal 20.0 - 40.0 % [facility], [facility].; [facility], [facility]. MCH (RBC) [Entitic mass] 28.3 pg Normal 27.0 - 33.0 pg [facility], [facility].; [facility], [facility] MCHC (RBC) [Mass/Vol] 32.8 g/dL Normal 32.0 - 36.0 g/dL [facility], [facility].; [facility], [facility]. MCV (RBC) [Entitic vol] 86.3 fL Normal 80.0 - 99.0 fL [facility], [facility].; [facility], [facility] Monocytes/100 WBC (Bld) 5.0 % Normal 2.0 - 13.0 % [facility], [facility].; [facility], [facility]. Neutrophils (Bld) [#/Vol] 5.44 {10_3/mcL} Normal 1.90 - 7.90 {10_3/mcL} [facility], [facility].; [facility], [facility]. Neutrophils/100 WBC (Bld) 69.6 % Normal 50.0 - 75.0 % [facility], [facility].; [facility], [facility]. Platelet mean volume (Bld) [Entitic vol] 7.7 fL Normal 6.6 - 10.5 fL [facility], [facility].; [facility], [facility]. Platelets (Bld) [#/Vol] 284 {10_3/mcL} Normal 150 - 450 {10_3/mcL} [facility], [facility].; [facility], [facility]. RBC (Bld) [#/Vol] 4.78 {10_6/mcL} Normal 4.10 - 5.30 {10_6/mcL} [facility], [facility].; [facility], [facility]. WBC (Bld) [#/Vol] 7.82 {10_3/mcL} Normal 4.50 - 10.80 {10_3/mcL} [facility], [facility] Vital Signs Date Time Vital Sign Value Performing Clinician Tesha isidro 03-14-2025 14:09-0400 Body height 157.[address] Davon Hines MD Work Phone: [facility] 03-14-2025 14:09-0400 Body mass index (BMI) [Ratio] 51.2 kg/m2 Dr. Davon Hines MD Work Phone: [facility] 03-14-2025 14:09-0400 Body weight [address] Davon Hines MD Work Phone: [facility] 03-14-2025 14:09-0400 Diastolic blood pressure 58 mm[Hg] Dr. Davon Hines MD Work Phone: [facility] 03-14-2025 14:09-0400 Heart rate 65 /min Dr. Davon Hines MD Work Phone: [facility] 03-14-2025 14:09-0400 Respiratory rate 16 /min Dr. Davon Hines MD Work Phone: [facility] 03-14-2025 14:09-0400 Systolic blood pressure 118 mm[Hg] Dr. Davon Hines MD Work Phone: [facility] 10-12-2024 09:13-0500 Body height 160.02 cm Miranda Monteiro RN [facility], [facility].; [facility], [facility]. 10-12-2024 09:13-0500 Body mass index (BMI) [Ratio] 49.6 kg/m2 Miranda Monteiro RN [facility], [facility].; [facility], [facility]. 10-12-2024 09:13-0500 Body surface area Derived from formula 2.23 m2 Miranda Monteiro RN [facility], [facility].; [facility]. 10-12-2024 09:13-0500 Body weight 127.01 kg Miranda Monteiro RN [facility] [employer] [facility] 10-12-2024 09:13-0500 Diastolic blood pressure 80 mm[Hg] Miranda Monteiro RN [facility], [employer] [facility] [employer] [facility] [employer]. Comment on above: Patient Position: Sitting; Cuff Location : Left Arm; Cuff Size: Large 10-12-2024 09:13-0500 Heart rate 59 /min Miranda Monteiro RN [facility] [employer] [facility] [employer] [facility] Comment on above: Pattern: Regular 10-12-2024 09:13-0500 Systolic blood pressure 117 mm[Hg] Miranda Monteiro RN [facility] [employer] [facility] [employer] [facility], [employer]. Comment on above: Patient Position: Sitting; Cuff Location : Left Arm; Cuff Size: Large 04-06-2024 09:40-0400 Body height 160.02 cm Erica Babb RN [facility] [employer] [facility] 04-06-2024 09:40-0400 Body mass index (BMI) [Ratio] 46.59 kg/m2 Erica Babb RN [facility] 04-06-2024 09:40-0400 Body surface area Derived from formula 2.17 m2 Erica Babb RN [facility] [employer] [facility] 04-06-2024 09:40-0400 Body weight 119.3 kg Erica Babb RN [facility] [employer] [facility] [employer] 04-06-2024 09:40-0400 Diastolic blood pressure 79 mm[Hg] Erica Babb RN [facility] [employer] [facility] [employer] [facility], [employer]. Comment on above: Patient Position: Sitting; Cuff Location : Left Arm; Cuff Size: Large 04-06-2024 09:40-0400 Heart rate 56 /min Erica Babb RN [facility] [employer] [facility] [employer] [facility] [employer] [facility] [employer] Comment on above: Pattern: Regular 04-06-2024 09:40-0400 Systolic blood pressure 119 mm[Hg] Erica Babb RN [facility], [employer]. Comment on above: Patient Position: Sitting; Cuff Location : Left Arm; Cuff Size: Large 10-01-2023 14:06-0500 Body height 160.02 cm Erica Babb RN [facility] 10-01-2023 14:06-0500 Body mass index (BMI) [Ratio] 50.48 kg/m2 Erica Babb RN [facility] 10-01-2023 14:06-050 Body surface area Derived from formula 2.25 m2 Erica Babb RN [facility] 10-01-2023 14:06-0500 Body weight 129.28 kg Erica Babb RN [facility] 10-01-2023 14:06-0500 Diastolic blood pressure 81 mm[Hg] Erica Babb RN [facility], [employer]. Comment on above: Patient Position: Sitting; Cuff Location : Left Arm; Cuff Size: Large 10-01-2023 14:06-0500 Heart rate 64 /min Erica Babb RN [facility] Comment on above: Pattern: Regular 10-01-2023 14:06-0500 Inhaled oxygen concentration 21 % Erica Babb RN [facility] Comment on above: Room air 10-01-2023 14:06-0500 SaO2% (BldA) [Mass fraction] 94 % Erica Babb RN [facility] [employer] [facility] 10-01-2023 14:06-0500 Systolic blood pressure 116 mm[Hg] Erica Babb RN [facility] Comment on above: Patient Position: Sitting; Cuff Location : Left Arm; Cuff Size: Large 04-16-2023 10:37-0400 Body height 160.02 cm Erica Babb RN [facility] 04-16-2023 10:37-0400 Body mass index (BMI) [Ratio] 49.42 kg/m2 Erica Babb RN [facility] 04-16-2023 10:37-0400 Body surface area Derived from formula 2.23 m2 Erica Babb RN [facility], [facility].; [facility], [facility]. 04-16-2023 10:37-0400 Body weight 126.55 kg Erica Babb RN [facility], [facility]. 04-16-2023 10:37-0400 Diastolic blood pressure 80 mm[Hg] Erica Babb RN [facility], [facility].; [facility] Comment on above: Patient Position: Sitting; Cuff Location : Left Arm; Cuff Size: Large 04-16-2023 10:37-0400 Heart rate 52 /min Erica Babb RN [facility], [facility].; [facility] Comment on above: Pattern: Regular 04-16-2023 10:37-0400 Systolic blood pressure 123 mm[Hg] Erica Babb RN [facility] Comment on above: Patient Position: Sitting; Cuff Location : Left Arm; Cuff Size: Large 08-05-2022 13:06-0500 Body height 160.02 cm Miranda Monteiro RN [facility], [facility].; [facility] 08-05-2022 13:06-0500 Body mass index (BMI) [Ratio] 47.87 kg/m2 Miranda Monteiro RN [facility] 08-05-2022 13:06-0500 Body surface area Derived from formula 2.2 m2 Miranda Monteiro RN [facility] [employer] [facility] [employer] [facility] 08-05-2022 13:06-0500 Body weight 122.59 kg Miranda Monteiro RN [facility] [employer] [facility] [employer] [facility] 08-05-2022 13:06-0500 Diastolic blood pressure 73 mm[Hg] Miranda Monteiro RN [facility] [employer] [facility] [employer] [facility] Comment on above: Patient Position: Sitting; Cuff Location : Left Arm; Cuff Size: Large 08-05-2022 13:06-0500 Heart rate 63 /min Miranda Monteiro RN [facility] [employer] [facility] [employer] [facility] [employer] [facility] [employer] Comment on above: Pattern: Regular 08-05-2022 13:06-0500 Systolic blood pressure 105 mm[Hg] Miranda Monteiro RN [facility] [employer] [facility] [employer] [facility] [employer] [facility] [employer] Comment on above: Patient Position: Sitting; Cuff Location : Left Arm; Cuff Size: Large 12-03-2021 11:02050 Body height 160.02 cm Ernestina Toney RN [facility] [employer] [facility] [employer] [facility] [employer] 12-03-2021 11:02-0500 Body mass index (BMI) [Ratio] 46.23 kg/m2 Ernestina Toney RN [facility] [employer] [facility] [facility] [employer] [facility] [employer] 12-03-2021 11:02-0500 Body surface area Derived from formula 2.17 m2 Ernestina Toney RN [facility] [employer] [facility] [employer] [facility] [employer] [facility] [employer] 12-03-2021 11:02-0500 Body temperature 98.1 [degF] Ernestina Toney RN [facility] [employer] [facility] [employer] [facility] [employer] [facility] Comment on above: Method: Oral 12-03-2021 11:02-0500 Body weight 118.39 kg Ernestina Toney RN [facility] [employer] [facility] [employer] [facility] [employer] [facility] 12-03-2021 11:02-0500 Diastolic blood pressure 65 mm[Hg] Ernestina Toney RN [facility] [employer] [facility] Comment on above: Patient Position: Sitting; Cuff Location : Left Arm; Cuff Size: Standard 12-03-2021 11:02-0500 Heart rate 54 /min Ernestina Toney RN [facility] [employer] [facility] [employer] [facility] Comment on above: Pattern: Regular 12-03-2021 11:02-0500 Inhaled oxygen concentration 21 % Ernestina Toney RN [facility] [employer] [facility] Comment on above: Room air 12-03-2021 11:020500 SaO2% (BldA) [Mass fraction] 96 % Ernestina Toney RN [facility] [facility] 12-03-2021 11:02-0500 Systolic blood pressure 100 mm[Hg] Ernestina Toney RN [facility] [employer] [facility] [employer] [facility] Comment on above: Patient Position: Sitting; Cuff Location : Left Arm; Cuff Size: Standard 04-23-2021 10:040 Body height 160.02 cm Miranda Monteiro RN [facility] 04-23-2021 10:070400 Body mass index (BMI) [Ratio] 44.82 kg/m2 Miranda Monteiro RN [facility] 04-23-2021 10:070400 Body surface area Derived from formula 2.14 m2 Miranda Monteiro RN [facility] 04-23-2021 10:07040 Body weight 114.76 kg Miranda Monteiro RN [facility] [employer] [facility] 04-23-2021 10:070400 Diastolic blood pressure 68 mm[Hg] Miranda Monteiro RN [facility] [employer] [facility] Comment on above: Patient Position: Sitting; Cuff Location : Left Arm; Cuff Size: Large 04-23-2021 10:07-0400 Heart rate 50 /min Miranda Monteiro RN [facility] [employer] [facility] [employer] [facility] Comment on above: Pattern: Regular 04-23-2021 10:07-0400 Systolic blood pressure 99 mm[Hg] Miranda Monteiro RN [facility] [employer] [facility] [employer] [facility] Comment on above: Patient Position: Sitting; Cuff Location : Left Arm; Cuff Size: Large 10-23-2020 09:14-0500 Body height 160.02 cm Miranda Monteiro RN [facility] [employer] [facility] [employer] [facility] 10-23-2020 09:14-0500 Body mass index (BMI) [Ratio] 48.93 kg/m2 Miranda Monteiro RN [facility] [employer] [facility] 10-23-2020 09:14-0500 Body surface area Derived from formula 2.22 m2 Miranda Monteiro RN [facility] [employer] [facility] [employer] [facility] 10-23-2020 09:14-0500 Body weight 125.31 kg Miranda Monteiro RN [facility] [employer] [facility] [employer] [facility] [employer] 10-23-2020 09:14-0500 Diastolic blood pressure 77 mm[Hg] Miranda Monteiro RN [facility] [employer] [facility] [employer] [facility] [employer] [facility] Comment on above: Patient Position: Sitting; Cuff Location : Left Arm; Cuff Size: Large 10-23-2020 09:14-0500 Heart rate 54 /min Miranda Monteiro RN [facility] [employer] [facility] [employer] [facility] [employer] [facility] Comment on above: Pattern: Regular 10-23-2020 09:14-0500 Systolic blood pressure 118 mm[Hg] Miranda Monteiro RN [facility] [employer] [facility] [employer] [facility] [employer] [facility] Comment on above: Patient Position: Sitting; Cuff Location : Left Arm; Cuff Size: Large 02-21-2020 09:48-0400 Body height 160.02 cm Ernestina Toney RN [facility] [employer] [facility] [employer] [facility] [employer] [facility] [employer] 02-21-2020 09:48-0400 Body mass index (BMI) [Ratio] 47.3 kg/m2 Ernestina Toney RN [facility] [employer] [facility] 02-21-2020 09:48-0400 Body surface area Derived from formula 2.19 m2 Ernestina Toney RN [facility] [employer] [facility] [employer] [facility] 02-21-2020 09:48-0400 Body temperature 98.3 [degF] Ernestina Toney RN [facility] [employer] [facility] [employer] Comment on above: Method: Oral 02-21-2020 09:48-0400 Body weight 121.11 kg Ernestina Toney RN [facility] [employer] [facility] [employer] [facility] 02-21-2020 09:48-0400 Diastolic blood pressure 70 mm[Hg] Ernestina Toney RN [facility] [employer] [facility] [employer] [facility] [employer] [facility] Comment on above: Patient Position: Sitting; Cuff Location : Left Arm; Cuff Size: Standard 02-21-2020 09:48-0400 Heart rate 56 /min Ernestina Toney RN [facility] [employer] [facility], [employer] [facility] [employer] [facility] Comment on above: Pattern: Regular 02-21-2020 09:48-0400 Systolic blood pressure 105 mm[Hg] Ernestina Toney RN [facility] [employer] [facility] [employer] [facility] [employer] [facility] Comment on above: Patient Position: Sitting; Cuff Location : Left Arm; Cuff Size: Standard 07-24-2019 09:07-0400 Body height 160.02 cm Ernestina Toney RN [facility] [employer] [facility] [employer] [facility] [employer] [facility] [employer] 07-24-2019 09:07-0400 Body mass index (BMI) [Ratio] 46.41 kg/m2 Ernestina Toney RN [facility] [employer] [facility] [employer] [facility] [employer] [facility] 07-24-2019 09:07-0400 Body surface area Derived from formula 2.17 m2 Ernestina Toney RN [facility] [employer] [facility] [employer] [facility] [employer] 07-24-2019 09:07-0400 Body temperature 97.7 [degF] Ernestina Toney RN [facility] [employer] [facility] Comment on above: Method: Oral 07-24-2019 09:07-0400 Body weight 118.84 kg Ernestina Toney RN [facility] [employer] [facility] [employer] 07-24-2019 09:07-0400 Diastolic blood pressure 76 mm[Hg] Ernestina Toney RN [facility] [employer] [facility] [employer] [facility] [employer] Comment on above: Patient Position: Sitting; Cuff Location : Left Arm; Cuff Size: Standard 07-24-2019 09:07-0400 Heart rate 64 /min [facility] [employer] Comment on above: Pattern: Regular 07-24-2019 09:07-0400 Systolic blood pressure 118 mm[Hg] [facility] [employer] Comment on above: Patient Position: Sitting; Cuff Location : Left Arm; Cuff Size: Standard 01-16-2019 09:03-0400 Body height 160.02 cm Erica Babb RN [facility] [employer] [facility] [employer] [facility] [employer] [facility] [employer] 01-16-2019 09:03-0400 Body mass index (BMI) [Ratio] 45.7 kg/m2 Eric[facility] [employer] [facility] [employer] [facility] [employer] 01-16-2019 09:03-0400 Body surface area Derived from formula 2.16 m2 Erica Babb RN [facility] [employer] [facility] [employer] [facility] [employer] 01-16-2019 09:03-0400 Body weight 117.03 kg Erica Babb RN [facility] [employer] [facility] 01-16-2019 09:03-0400 Diastolic blood pressure 64 mm[Hg] Erica Babb RN [facility] [employer] [facility] Comment on above: Patient Position: Sitting; Cuff Location : Left Arm; Cuff Size: Large 01-16-2019 09:03-0400 Heart rate 48 /min Erica Babb RN [facility] [employer] [facility] Comment on above: Pattern: Regular 01-16-2019 09:03-0400 Systolic blood pressure 99 mm[Hg] [facility] [employer], Inc[employer] Comment on above: Patient Position: Sitting; Cuff Location : Left Arm; Cuff Size: Large 08-22-2018 16:09-0500 Body height 160.02 cm Ernestina Toney RN [facility] [employer] [facility], [employer], [employer] 08-22-2018 16:09-0500 Body mass index (BMI) [Ratio] 47.65 kg/m2 Ernestina Toney RN [facility] [employer] [facility], [employer].; [employer] [facility] [employer] 08-22-2018 16:09-0500 Body surface area Derived from formula 2.19 m2 Ernestina Toney RN [facility] [employer] [facility], [employer].; [employer], Inc[employer] 08-22-2018 16:09-0500 Body temperature 98.5 [degF] Ernestina Toney RN [facility] [employer] [facility], [employer], [employer] Comment on above: Method: Oral 08-22-2018 16:09-0500 Body weight 122.02 kg Ernestina Toney RN [facility] [employer] [facility] [employer], [employer] 08-22-2018 16:09-0500 Diastolic blood pressure 60 mm[Hg] Ernestina Toney RN [facility] [employer] [facility] [employer].; [employer], Inc[employer] Comment on above: Patient Position: Sitting; Cuff Location : Left Arm; Cuff Size: Standard 08-22-2018 16:09-0500 Heart rate 61 /min Ernestina Toney RN [facility] [employer] [facility], [employer].; [employer], Inc[employer] Comment on above: Pattern: Regular 08-22-2018 16:09-0500 Inhaled oxygen concentration 21 % [facility] [employer], Inc[employer] Comment on above: Room air 08-22-2018 16:09-0500 SaO2% (BldA) [Mass fraction] 96 % Ernestina Toney RN [facility] [employer] [facility], [employer].; [employer], [employer] 08-22-2018 16:09-0500 Systolic blood pressure 94 mm[Hg] Ernestina Toney RN [facility] [employer] [facility] [employer].; [employer], [employer] Comment on above: Patient Position: Sitting; Cuff Location : Left Arm; Cuff Size: Standard 02-02-2018 14:46-0400 Body height 160.02 cm Ernestina Toney RN [facility] [employer] [facility] [employer], [employer] 02-02-2018 14:46-0400 Body mass index (BMI) [Ratio] 47.83 kg/m2 Ernestina Toney RN [facility] [employer] [facility] [employer], [employer] 02-02-2018 14:46-0400 Body surface area Derived from formula 2.2 m2 Ernestina Toney RN [facility] [employer] [facility], [employer], [employer] 02-02-2018 14:46-0400 Body temperature 98.1 [degF] Ernestina Toney RN [facility] [employer] [facility] [employer].; [employer], [employer] Comment on above: Method: Oral 02-02-2018 14:46-0400 Body weight 122.47 kg Ernestina Toney RN [facility] [employer] [facility] [employer], [employer] 02-02-2018 14:46-0400 Diastolic blood pressure 68 mm[Hg] Ernestina Toney RN [facility] [employer], [employer] Comment on above: Patient Position: Sitting; Cuff Location : Left Arm; Cuff Size: Standard 02-02-2018 14:46-0400 Heart rate 58 /min Ernestina Toney RN [facility] [employer] [facility].; [employer], [employer] Comment on above: Pattern: Regular 02-02-2018 14:46-0400 Systolic blood pressure 105 mm[Hg] Ernest[facility] Inc[employer], Inc[employer] Comment on above: Patient Position: Sitting; Cuff Location : Left Arm; Cuff Size: Standard 10-28-2017 14:09-0500 Body height 160.02 cm Erica Babb RN [facility], Inc.; [employer] [facility] [employer] [facility] [employer] 10-28-2017 14:09-0500 Body mass index (BMI) [Ratio] 46.66 kg/m2 Erica Babb RN [facility], Inc.; [employer] [facility], Inc. 10-28-2017 14:09-0500 Body surface area Derived from formula 2.17 m2 Erica Babb RN [facility], Inc.; [employer] [facility], Inc. 10-28-2017 14:09-0500 Body weight 119.48 kg Erica Babb RN [facility], Inc.; [employer] [facility] [employer] [facility] [employer] 10-28-2017 14:09-0500 Diastolic blood pressure 78 mm[Hg] Erica Babb RN [facility] [employer] [facility] [facility] [employer] [facility] [employer] Comment on above: Patient Position: Sitting; Cuff Location : Left Arm; Cuff Size: Large 10-28-2017 14:09-0500 Heart rate 56 /min Erica Babb RN [facility] [employer] [facility] [employer] [facility] [employer] [facility] [employer] Comment on above: Pattern: Regular 10-28-2017 14:09-0500 Systolic blood pressure 119 mm[Hg] Erica Babb RN [facility] [employer] [facility], Inc.; [employer] [facility] [employer] [facility], Inc[employer] Comment on above: Patient Position: Sitting; Cuff Location : Left Arm; Cuff Size: Large 05-20-2017 14:00-0400 Body height 160.02 cm Miranda Monteiro RN [facility] [employer] [facility], [facility].; [employer] [facility] [employer] [facility] [employer] 05-20-2017 14:00-0400 Body mass index (BMI) [Ratio] 49.95 kg/m2 Miranda Monteiro RN [facility] [employer] [facility], Inc.; [employer] [facility] [employer] [facility] [employer] 05-20-2017 14:00-0400 Body surface area Derived from formula 2.24 m2 Miranda Monteiro RN [facility], Inc.; [employer] [facility] [employer], [employer] 05-20-2017 14:00-0400 Body weight 127.92 kg Miranda Monteiro RN [facility] [employer] [facility], [facility].; [employer] [facility] [employer] [facility] [employer] 05-20-2017 14:00-0400 Diastolic blood pressure 83 mm[Hg] Miranda [facility] [employer], [employer] Comment on above: Patient Position: Sitting; Cuff Location : Left Arm; Cuff Size: Large 05-20-2017 14:00-0400 Heart rate 62 /min Miranda Monteiro RN [facility] [employer] [facility], [facility].; [employer] [facility] [employer], [employer] Comment on above: Pattern: Regular 05-20-2017 14:00-0400 Systolic blood pressure 137 mm[Hg] Miranda [facility] [employer] [facility] [employer], [employer] Comment on above: Patient Position: Sitting; Cuff Location : Left Arm; Cuff Size: Large 01-29-2017 15:130400 Body height 160.02 cm Eric[facility] [employer] [facility] [employer] [facility] [employer] 01-29-2017 15:13-0400 Body mass index (BMI) [Ratio] 52.08 kg/m2 Erica [facility] [employer] [facility] [employer] 01-29-2017 15:13-0400 Body surface area Derived from formula 2.28 m2 Erica [facility]abb [facility].; [employer] [facility] [employer] [facility] [employer] 01-29-2017 15:13-0400 Body temperature 97.6 [degF] Eric[facility] [employer] [facility] [employer], [employer] Comment on above: Method: Oral 01-29-2017 15:130400 Body weight 133.36 kg Erica [facility] [employer] [facility] [employer], [employer] 01-29-2017 15:130400 Diastolic blood pressure 80 mm[Hg] Eric[facility].; [facility] [employer] [facility] [employer] Comment on above: Patient Position: Sitting; Cuff Location : Left Arm; Cuff Size: Large 01-29-2017 15:13-0400 Systolic blood pressure 122 mm[Hg] Erica Babb RN [facility], [employer] [facility] [employer] [facility] [employer] Comment on above: Patient Position: Sitting; Cuff Location : Left Arm; Cuff Size: Large 01-13-2017 11:00-0400 Body height 160.02 cm Ernestina Toney RN [facility] [employer] [facility], [facility].; [facility] [employer] [facility], [employer] 01-13-2017 11:00-0400 Body mass index (BMI) [Ratio] 48.36 kg/m2 Ernestina Toney RN [facility] [employer] [facility], Inc.; [facility] [employer] [facility], [employer] 01-13-2017 11:000400 Body surface area Derived from formula 2.21 m2 Ernestina oTney RN [facility] [employer] [facility].; [facility] [employer] [facility] [employer] 01-13-2017 11:00-0400 Body temperature 98.1 [degF] Ernestina Toney RN [facility] [employer] [facility] [facility] [employer] [facility], [employer] Comment on above: Method: Oral 01-13-2017 11:00-0400 Body weight 123.83 kg Ernestina Toney RN [facility] [employer] [facility].; [facility] [employer] [facility] [employer] 01-13-2017 11:00-0400 Diastolic blood pressure 76 mm[Hg] Ernestina Toney RN [facility] [employer] [facility] [employer].; [employer] [facility] [employer] [facility], [employer] Comment on above: Patient Position: Sitting; Cuff Location : Left Arm; Cuff Size: Standard 01-13-2017 11:00-0400 Heart rate 80 /min Ernestina Toney RN [facility] [employer] [facility], [employer].; [employer] [facility] [employer] [facility], [employer] Comment on above: Pattern: Regular 01-13-2017 11:00-0400 Inhaled oxygen concentration 21 % Ernestina Toney RN [facility] [employer] [facility], [employer].; [employer] [facility] [employer] [facility], Inc[facility] Comment on above: Room air 01-13-2017 11:00-0400 SaO2% (BldA) [Mass fraction] 92 % Ernestina Toney RN [facility] [employer] [facility], [facility].; [employer] [facility] [employer] [facility] [employer] 01-13-2017 11:00-0400 Systolic blood pressure 117 mm[Hg] Ernestina Toney RN [facility], Inc.; [employer] [facility] [employer] [facility], [employer]. Comment on above: Patient Position: Sitting; Cuff Location : Left Arm; Cuff Size: Standard 04-16-2016 10:28-0400 Body height 160.02 cm Ernestina Toney RN [facility] [employer] [facility], Inc.; [employer] [facility] [employer] [facility] [employer] 04-16-2016 10:28-0400 Body mass index (BMI) [Ratio] 49.88 kg/m2 Ernetsina Toney RN [facility], Inc.; [employer] [facility] [employer] [facility], Inc[facility] 04-16-2016 10:28-0400 Body surface area Derived from formula 2.24 m2 Ernestina Toney RN [facility], Inc.; [employer] [facility] [employer] [facility], Inc[facility] 04-16-2016 10:28-0400 Body temperature 98.2 [degF] Ernestina Toney RN [facility] [employer] [facility], Inc.; [employer], Inc. Comment on above: Method: Oral 04-16-2016 10:28-0400 Body weight 127.73 kg Ernestina Toney RN [facility], Inc.; [employer] [facility] [employer] [facility], Inc[facility] 04-16-2016 10:28-0400 Diastolic blood pressure 67 mm[Hg] Ernestina Toney RN [facility] [employer] [facility], [employer].; [employer] [facility] [employer] [facility], [employer] Comment on above: Patient Position: Sitting; Cuff Location : Left Arm; Cuff Size: Standard 04-16-2016 10:28-0400 Heart rate 62 /min Ernestina Toney RN [facility] [employer] [facility], [employer].; [employer] [facility] [employer], [employer] Comment on above: Pattern: Regular 04-16-2016 10:28-0400 Systolic blood pressure 106 mm[Hg] Ernestina Toney RN [facility] [employer] [facility] [employer].; [employer], [employer] Comment on above: Patient Position: Sitting; Cuff Location : Left Arm; Cuff Size: Standard 05-17-2015 09:57-0400 Body height 161.29 cm CHET [facility] [employer].; [employer] [facility] [employer] [facility], [employer] 05-17-2015 09:57-0400 Body mass index (BMI) [Ratio] 47.25 kg/m2 CHET [facility], Inc.; [facility] [employer] [facility] [employer] 05-17-2015 09:57-0400 Body surface area Derived from formula 2.21 m2 CHET [facility] [employer] [facility].; [facility], Inc. 05-17-2015 09:57-0400 Body temperature 98.2 [degF] CHET [facility] [employer] [facility].; [employer] [facility] [employer] [facility], [employer] Comment on above: Method: Oral 05-17-2015 09:57-0400 Body weight 122.93 kg CHET [facility] [employer] [facility].; [employer] [facility] [employer] [facility] [employer] 05-17-2015 09:57-0400 Diastolic blood pressure 78 mm[Hg] CHET [facility] [employer] [facility].; [employer] [facility] [employer] [facility], [employer] Comment on above: Patient Position: Sitting; Cuff Location : Left Arm; Cuff Size: Standard 05-17-2015 09:57-0400 Heart rate 60 /min CHET [facility] [employer] [facility].; [employer] [facility] [employer] [facility], [employer] Comment on above: Pattern: Regular 05-17-2015 09:57-0400 Systolic blood pressure 126 mm[Hg] CHET [facility] [employer] [facility].; [employer] [facility] [employer] [facility], Inc[facility] Comment on above: Patient Position: Sitting; Cuff Location : Left Arm; Cuff Size: Standard 02-08-2015 09:59-0400 Body height 161.29 cm Erica Babb RN [facility] [employer] [facility].; [employer] [facility] [employer] [facility], [employer] 02-08-2015 09:59-0400 Body mass index (BMI) [Ratio] 47.43 kg/m2 [facility] [employer].; [employer] [facility] [employer] [facility], [employer] 02-08-2015 09:59-0400 Body surface area Derived from formula 2.22 m2 Erica Babb RN [employer] [facility] [employer].; [employer] [facility] [employer] [facility], [employer] 02-08-2015 09:59-0400 Body temperature 98 [degF] Erica Babb RN [facility] [employer] [facility].; [employer] [facility] [employer] Comment on above: Method: Oral 02-08-2015 09:59-0400 Body weight 123.38 kg Erica Babb RN [facility] [employer] [facility].; [employer] [facility] Rod[facility] [employer] [facility], [employer] 02-08-2015 09:59-0400 Diastolic blood pressure 84 mm[Hg] Erica Babb RN [facility] [employer] [facility].; [employer] [facility] [employer] [facility], [employer] Comment on above: Patient Position: Sitting; Cuff Location : Left Arm; Cuff Size: Large 02-08-2015 09:59-0400 Heart rate 58 /min Erica Babb RN [employer] [facility].; [employer], Inc[employer] Comment on above: Pattern: Regular 02-08-2015 09:59-0400 Systolic blood pressure 138 mm[Hg] Erica Babb RN [employer] [facility].; [employer], [employer]. Comment on above: Patient Position: Sitting; Cuff Location : Left Arm; Cuff Size: Large 01-04-2014 15:55-0400 Body height 160.66 cm DANIS HAYES [facility] [employer] [facility].; [employer], Inc. 01-04-2014 15:55-0400 Body mass index (BMI) [Ratio] 47.8 kg/m2 DANIS [facility] [employer] [facility] Inc.; [employer] [facility] [employer], [employer] 01-04-2014 15:55-0400 Body surface area Derived from formula 2.21 m2 DANIS [facility] [employer] [facility] [employer], [employer]. 01-04-2014 15:55-0400 Body weight 123.38 kg DANIS HAYES [facility] [employer], [employer]. 01-04-2014 15:55-0400 Diastolic blood pressure 71 mm[Hg] DANIS HAYES [facility] [employer], Inc. Comment on above: Patient Position: Sitting; Cuff Location : Left Arm; Cuff Size: Standard 01-04-2014 15:55-0400 Heart rate 71 /min DANIS [facility] [employer] [facility], [employer].; [employer] [facility] [employer] Comment on above: Pattern: Regular 01-04-2014 15:55-0400 Systolic blood pressure 111 mm[Hg] DANIS [facility] [employer] [facility], Inc.; [employer] [facility] [employer] Comment on above: Patient Position: Sitting; Cuff Location : Left Arm; Cuff Size: Standard 06-30-2013 08:59-0400 Body height 160.66 cm Ernestina Toney RN [facility] [employer] [facility], [employer].; [employer] [facility] [employer] [facility] [employer] 06-30-2013 08:59-0400 Body mass index (BMI) [Ratio] 48.15 kg/m2 Ernestina Toney RN [facility] [employer] [facility], Inc.; [employer] [facility] [employer] [facility], [employer] 06-30-2013 08:59-0400 Body surface area Derived from formula 2.22 m2 Ernestina Toney RN [facility] [employer] [facility], Inc.; [employer] [facility], [employer] 06-30-2013 08:59-0400 Body temperature 98.5 [degF] Ernestina Toney RN [facility] [employer] [facility], [employer], [employer]. Comment on above: Method: Oral 06-30-2013 08:59-0400 Body weight 124.29 kg Ernestina Toney RN [facility] [employer] [facility] [employer].; [employer] [facility] [employer] [facility] [employer] 06-30-2013 08:59-0400 Diastolic blood pressure 70 mm[Hg] Ernestina Toney RN [facility] [employer] [facility] Inc.; [employer] [facility] [employer] Comment on above: Patient Position: Sitting; Cuff Location : Left Arm; Cuff Size: Standard 06-30-2013 08:59-0400 Heart rate 57 /min Ernestina Toney RN [facility] [employer] [facility] [employer].; [employer], [employer]. Comment on above: Pattern: Regular 06-30-2013 08:59-0400 Systolic blood pressure 111 mm[Hg] Ernestina Toney RN [facility] [employer] [facility] Inc.; [facility] [employer] [facility] [employer] Comment on above: Patient Position: Sitting; Cuff Location : Left Arm; Cuff Size: Standard 11-25-2012 09:52-0500 Body height 160.66 cm Ernestina Toney RN [facility], Inc.; [employer] [facility] [employer] [facility] [employer] 11-25-2012 09:52-0500 Body mass index (BMI) [Ratio] 47.98 kg/m2 Ernestina Toney RN [facility], Inc.; [facility], Inc. 11-25-2012 09:52-0500 Body surface area Derived from formula 2.21 m2 Ernestina Toney RN [facility], Inc.; [facility], Inc. 11-25-2012 09:52-0500 Body temperature 97.7 [degF] Ernestina Toney RN [facility], Inc.; [employer] [facility] [employer] [facility], [employer]. Comment on above: Method: Oral 11-25-2012 09:52-0500 Body weight 123.83 kg Ernestina Toney RN [facility], Inc.; [facility] [employer] [facility] [employer] 11-25-2012 09:52-0500 Diastolic blood pressure 80 mm[Hg] Ernestina Toney RN [facility], Inc.; [facility] [employer] [facility] [employer] Comment on above: Patient Position: Sitting; Cuff Location : Left Arm; Cuff Size: Standard 11-25-2012 09:52-0500 Heart rate 61 /min Ernestina Toney RN [facility], Inc.; [facility] [employer] [facility] [employer] Comment on above: Pattern: Regular 11-25-2012 09:52-0500 Systolic blood pressure 117 mm[Hg] Ernestina Toney RN [facility] [employer] [facility], [employer].; [employer] [facility] [employer] [facility] [employer] Comment on above: Patient Position: Sitting; Cuff Location : Left Arm; Cuff Size: Standard 10-12-2011 15:50-0500 Body height 160.02 cm Ernestina Toney RN [facility] [employer] [facility], [employer].; [employer] [facility] [employer] [facility] [employer] 10-12-2011 15:50-0500 Body mass index (BMI) [Ratio] 46.77 kg/m2 Ernestina Toney RN [facility], Inc.; [facility], Inc. 10-12-2011 15:50-0500 Body surface area Derived from formula 2.18 m2 Ernestina Toney RN [facility], Inc.; [facility], Inc. 10-12-2011 15:50-0500 Body temperature 98.6 [degF] Ernestina Toney RN [facility], Inc.; [facility] [employer] [facility] [employer] Comment on above: Method: Oral 10-12-2011 15:50-0500 Body weight 119.75 kg Ernestina Toney RN [facility], Inc.; [facility] [employer] [facility] [employer] 10-12-2011 15:50-0500 Diastolic blood pressure 78 mm[Hg] Ernestina Toney RN [facility], Inc.; [facility] [employer] [facility] [employer] Comment on above: Patient Position: Sitting; Cuff Location : Left Arm; Cuff Size: Standard 10-12-2011 15:50-0500 Heart rate 71 /min Ernestina Toney RN [facility], [employer] [facility] [employer] [facility] [employer] Comment on above: Pattern: Regular 10-12-2011 15:50-0500 Systolic blood pressure 115 mm[Hg] Ernestina Toney RN [facility], Inc.; [employer] [facility] [employer] [facility] [employer] Comment on above: Patient Position: Sitting; Cuff Location : Left Arm; Cuff Size: Standard 09-15-2010 13:28-0500 Body temperature 97.8 [degF] Ernestina Toney RN [facility], Inc.; [employer] [facility] [employer] [facility] [employer] Comment on above: Method: Oral 09-15-2010 13:28-0500 Body weight 118.84 kg Ernestina Toney RN [facility], Inc.; [employer] [facility] [employer] [facility] [employer] 09-15-2010 13:28-0500 Diastolic blood pressure 85 mm[Hg] Ernestina Toney RN [facility], Inc.; [employer] [facility] [employer] [facility] [employer]. Comment on above: Patient Position: Sitting; Cuff Location : Left Arm; Cuff Size: Standard 09-15-2010 13:28-0500 Heart rate 69 /min Ernestina Toney RN [facility] [employer].; [facility], Inc. Comment on above: Pattern: Regular 09-15-2010 13:28-0500 Systolic blood pressure 141 mm[Hg] Ernestina Toney RN [facility] [employer] [facility].; [facility], Inc. Comment on above: Patient Position: Sitting; Cuff Location : Left Arm; Cuff Size: Standard Encounters Encounter Date Encounter Type Care Provider Facility Start: 04-07-2025 ambulatory Davon Hines Facility:[facility] Start: 03-14-2025 End: 03-14-[address] Cj José MD -[facility] Work Phone: Start: 03-14-2025 End: 03-14-[address] Davon Hines MD Work Phone: [facility] Work Phone: Start: 01-22-2025 End: 01-22-2025 ambulatory DAVON HINES [facility] Start: 10-12-2024 End: 10-12-2024 Office outpatient visit 10 minutes EMPERATRIZ SALDIVRA ASSISTANT COOK-C [facility] [employer] Start: 04-06-2024 End: 04-06-2024 Office outpatient visit 10 minutes EMPERATRIZ SALDIVAR ASSISTANT COOK-C Work Phone: [facility] [employer] [facility] Start: 10-01-2023 End: 10-01-2023 Office outpatient visit 10 minutes EMPERATRIZ SALDIVAR ASSISTANT COOK-C Work Phone: [facility] [employer] [facility]. Start: 06-30-2023 End: 06-30-2023 Medication Refill/Order EMPERATRIZ SALDIVAR ASSISTANT COOK-C Work Phone: [facility] [employer] [facility]. Start: 04-19-2023 End: 04-19-2023 Follow-up encounter EMPERATRIZ SALDIVAR ASSISTANT COOK-C Work Phone: [facility] [employer] [facility] [employer]. Start: 04-16-2023 End: 04-16-2023 Office outpatient visit 10 minutes EMPERATRIZ HOFSTETTER ASSISTANT COOK-C Work Phone: [facility] Start: 02-08-2023 End: 02-08-2023 Medication Refill/Order EMPERATRIZ HOFSTETTER ASSISTANT COOK-C Work Phone: [facility]. Start: 08-07-2022 End: 08-07-2022 Medication Refill/Order EMPERATRIZ HOFSTETTER ASSISTANT COOK-C Work Phone: [facility] Start: 08-05-2022 End: 08-05-2022 Office outpatient visit 10 minutes EMPERATRIZ HOFSTETTER ASSISTANT COOK-C Work Phone: [facility] Start: 07-14-2022 End: 07-15-2022 Medication Refill/Order EMPERATRIZ HOFSTETTER ASSISTANT COOK-C Work Phone: [facility] Start: 12-03-2021 End: 12-03-2021 Office outpatient visit 10 minutes EMPERATRIZ HOFSTETTER ASSISTANT COOK-C Work Phone: [facility] Start: 04-24-2021 End: 04-24-2021 Results Review EMPERATRIZ HOFSTETTER ASSISTANT COOK-C [facility] Start: 04-23-2021 End: 04-23-2021 Office outpatient visit 10 minutes EMPERATRIZ HOFSTETTER ASSISTANT COOK-C Work Phone: [facility] Start: 10-23-2020 End: 10-23-2020 Office outpatient visit 15 minutes EMPERATRIZ HOFSTETTER ASSISTANT COOK-C Work Phone: [facility] Start: 02-21-2020 End: 02-21-2020 Office outpatient visit 10 minutes EMPERATRIZ HOFSTETTER ASSISTANT COOK-C Work Phone: [place] [facility] [employer]. Start: 08-17-2019 End: 08-17-2019 Medication Refill/Order EMPERATRIZ SALDIVAR ASSISTANT COOK-C Work Phone: [facility] [employer]. Start: 08-16-2019 End: 08-16-2019 Medication Refill/Order EMPERATRIZ SALDIVAR ASSISTANT COOK-C [facility] Start: 08-15-2019 End: 08-15-2019 Historical Summary EMPERATRIZ JAUREGUIER ASSISTANT COOK-C Work Phone: [facility] [employer]. Start: 07-25-2019 End: 07-25-2019 Follow-up encounter EMPERATRIZ SALDIVAR ASSISTANT COOK-C Work Phone: [place] [facility] [employer]. Start: 07-24-2019 End: 07-24-2019 Office outpatient visit 15 minutes EMPERATRIZ SALDIVAR ASSISTANT COOK-C Work Phone: [place] [facility] [employer]. Start: 07-07-2019 End: 07-07-2019 Medication Refill/Order EMPERATRIZ SALDIVAR ASSISTANT COOK-C Work Phone: [place] [facility] [employer]. Start: 01-16-2019 End: 01-16-2019 Office outpatient visit 15 minutes EMPERATRIZ SALDIVAR ASSISTANT COOK-C Work Phone: [place] [facility] [employer]. Start: 10-19-2018 End: 10-19-2018 Follow-up encounter EMPERATRIZ SALDIVAR ASSISTANT COOK-C Work Phone: [place] [facility] [employer]. Start: 08-22-2018 End: 08-22-2018 Office outpatient visit 10 minutes EMPERATRIZ SALDIVAR ASSISTANT COOK-C Work Phone: [employer] [facility] [employer]. Start: 05-10-2018 End: 05-11-2018 Medication Refill/Order EMPERATRIZ SALDIVAR ASSISTANT COOK-C Work Phone: [facility] [employer]. Start: 02-04-2018 End: 02-04-2018 Results Review EMPERATRIZ JAUREGUIER ASSISTANT COOK-C Work Phone: [facility] [employer]. Start: 02-03-2018 End: 02-03-2018 Historical Summary EMPERATRIZ SALDIVAR ASSISTANT COOK-C Work Phone: [facility] [employer] Start: 02-02-2018 End: 02-02-2018 Office outpatient visit 15 minutes EMPERATRIZ SALDIVAR ASSISTANT COOK-C Work Phone: [employer] [facility] [employer] Start: 12-14-2017 Ambulatory Ritesh [place] Facility: [facility] Start: 12-13-2017 End: 12-13-2017 Historical Summary EMPERATRIZ SALDIVAR ASSISTANT COOK-C Work Phone: [place] [facility] [employer] Start: 10-28-2017 End: 10-28-2017 Office outpatient visit 15 minutes EMPERATRIZ SALDIVAR ASSISTANT COOK-C Work Phone: [employer] Start: 10-21-2017 End: 10-21-2017 Medication Refill/Order EMPERATRIZ SALDIVAR ASSISTANT COOK-C Work Phone: [place] [employer] Start: 10-21-2017 Ambulatory Ritesh [place] Facility: [facility] Start: 09-15-2017 End: 09-16-2017 Evaluation and management of inpatient Ritesh [place] Facility:[facility] Start: 09-14-2017 [facility] Start: 09-14-2017 [facility] Start: 05-20-2017 End: 05-20-2017 Office outpatient visit 10 minutes EMPERATRIZ SALDIVAR ASSISTANT COOK-C Work Phone: [employer]. Start: 04-29-2017 End: 04-29-2017 Medication Refill/Order EMPERATRIZ HODUNIATTER ASSISTANT COOK-C Work Phone: [facility] [employer]. Start: 02-01-2017 End: 02-01-2017 Medication Refill/Order EMPERATRIZ HODUNIATTER ASSISTANT COOK-C Work Phone: [facility] [employer]. Start: 01-29-2017 End: 01-29-2017 Office outpatient visit 10 minutes EMPERATRIZ CANALESTTER ASSISTANT COOK-C Work Phone: [facility] [employer] Start: 01-13-2017 End: 01-13-2017 Office outpatient visit 15 minutes EMPERATRIZ CANALESTTER ASSISTANT COOK-C Work Phone: [place] [facility] [employer] [facility]. Start: 11-13-2016 End: 11-13-2016 Historical Summary EMPERATRIZ CANALESTTER ASSISTANT COOK-C Work Phone: [facility] [employer]. Start: 04-16-2016 End: 04-16-2016 Office outpatient visit 10 minutes EMPERATRIZ العليTETTER ASSISTANT COOK-C Work Phone: [facility] [employer]. Start: 02-03-2016 End: 02-03-2016 Medication Refill/Order EMPERATRIZ HODUNIATTER ASSISTANT COOK-C Work Phone: [place] [facility] [employer] Start: 05-17-2015 End: 05-17-2015 Office outpatient visit 10 minutes EMPERATRIZ CANALESTTER ASSISTANT COOK-C Work Phone: [place] [facility] [employer]. Start: 02-11-2015 End: 02-11-2015 Results Review EMPERATRIZ CANALESTTER ASSISTANT COOK-C Work Phone: [place] [facility] [employer]. Start: 02-08-2015 End: 02-08-2015 Office outpatient visit 10 minutes EMPERATRIZ العليTETTER ASSISTANT COOK-C Work Phone: [place] [facility] Start: 01-28-2015 End: 01-28-2015 Medication Refill/Order EMPERATRIZ SALDIVAR ASSISTANT COOK-C Work Phone: [facility] [employer] [facility] Start: 01-04-2014 End: 01-04-2014 Patient encounter procedure EMPERATRIZ SALDIVAR ASSISTANT COOK-C Work Phone: [facility] [employer] [facility] Start: 06-30-2013 End: 06-30-2013 Patient encounter procedure EMPERATRIZ SALDIVAR ASSISTANT COOK-C Work Phone: [place] [facility] [employer] [facility] Start: 11-26-2012 End: 11-26-2012 Follow-up encounter EMPERATRIZ SALDIVAR ASSISTANT COOK-C Work Phone: [facility] [employer] [facility] Start: 11-25-2012 End: 11-25-2012 Patient encounter procedure EMPERATRIZ SALDIVAR ASSISTANT COOK-C Work Phone: [place] [facility] [employer] [facility] Start: 10-31-2012 End: 10-31-2012 Medication Refill/Order EMPERATRIZ SALDIVAR ASSISTANT COOK-C Work Phone: [place] [facility] [employer] Start: 10-12-2011 End: 10-12-2011 Patient encounter procedure EMPERATRIZ SLADIVAR ASSISTANT COOK-C Work Phone: [place] [facility] [employer] [facility] [facility] Start: 10-05-2011 End: 10-05-2011 Medication Refill/Order EMPERATRIZ SALDIVAR ASSISTANT COOK-C Work Phone: [place] [facility] Start: 09-15-2010 End: 09-15-2010 Patient encounter procedure EMPERATRIZ SALDIVAR ASSISTANT COOK-C Work Phone: [place] [facility] [employer] [facility] Start: 03-03-2010 End: 03-03-2010 Historical Summary EMPERATRIZ SALDIVAR ASSISTANT COOK-C Work Phone: [place] [facility] [employer] [facility]. Procedures Date Procedure Procedure Detail Performing Clinician Start: 10-12-2024 End: 10-12-2024 Dischrg meds reconciled w/current med list DAVON HINES MD Work Phone: Start: 04-06-2024 End: 04-06-2024 Dischrg meds reconciled w/current med list DAVON HINES MD Work Phone: Start: 08-05-2022 End: 08-05-2022 Dischrg meds reconciled w/current med list EMPERATRIZ Nelson PARKERTTER ASSISTANT COOK-C Work Phone: Start: 12-03-2021 End: 12-03-2021 Dischrg meds reconciled w/current med list EMPERATRIZ Nelson HODUNIATTER ASSISTANT COOK-C Work Phone: Start: 04-23-2021 End: 04-23-2021 Dischrg meds reconciled w/current med list EMPERATRIZ Nelson JANNA ASSISTANT COOK-C Work Phone: Start: 04-23-2021 End: 04-23-2021 Urinary Incontinence EMPERATRIZ Nelson ESTHELA R ASSISTANT COOK-C Work Phone: Comment on above: Sometimes Start: 10-23-2020 End: 10-23-2020 Dischrg meds reconciled w/current med list EMPERATRIZ Nelson PARKERTTER ASSISTANT COOK-C Work Phone: Start: 02-21-2020 End: 02-21-2020 Dischrg meds reconciled w/current med list EMPERATRIZ Nelson JANNA ASSISTANT COOK-C Work Phone: Start: 07-24-2019 End: 07-24-2019 Dischrg meds reconciled w/current med list GREG HINES MD Work Phone: Start: 01-16-2019 End: 01-16-2019 Dischrg meds reconciled w/current med list GREG HINES MD Work Phone: Start: 10-19-2018 End: 10-19-2018 Kyle JOHNSON Comment on above: EF 45%, Mod MR, Mod LVH Start: 08-22-2018 End: 08-22-2018 Dischrg meds reconciled w/current med list GREG HINES MD Work Phone: Start: 10-21-2017 End: 10-21-2017 Sleep Study Diagnostic EMPERATRIZ Nelson GINA TER ASSISTANT COOK-C Work Phone: Comment on above: SHOLA, RLS (home study per [facility]) Start: 09-15-2017 End: 09-15-2017 Coronary angiography EMPERATRIZ Nelson ESTHELA R ASSISTANT COOK-C Work Phone: Comment on above: Nl coronaries, EF 30 % ([facility]) Dilated cardiomyopat hy, EF 35% ([facility]) Start: 09-14-2017 End: 09-14-2017 Echocardiography EMPERATRIZ Nelson JANNA ASSISTANT COOK-C Work Phone: Comment on above: Abnormal. Stress ech o Pos ischemia Start: 01-13-2017 End: 01-13-2017 Ceftriaxone sodium injection ORTEGA FRAIRE MD Work Phone: Start: 01-13-2017 End: 01-13-2017 Therapeutic prophylactic/dx injection jatinderq/im ORTEGA JURADO MD Work Phone: Start: 05-17-2015 End: 05-17-2015 Dexamethasone sodium phos ORTEGA Hardin MD Work Phone: Start: 05-17-2015 End: 05-17-2015 Therapeutic prophylactic/dx injection jatinderq/im ORTEGA JURADO MD Work Phone: Adacel EMPERATRIZ LÓPEZ ASSISTANT COOK-C Work Phone: Comment on above: Refused. 12/03/2020 Adacel EMPERATRIZ LÓPEZ ASSISTANT COOK-C Work Phone: Comment on above: Refused. 12/03/2020 section EMPERATRIZ JOSHI ASSISTANT COOK-C Work Phone: Comment on above: x2 section EMPERATRIZ M H OFSTETTER ASSISTANT COOK-C Work Phone: Comment on above: x2 Section - 2 EMPERATRIZ JAUREGUIER ASSISTANT COOK-C Work Phone: Section - 2 EMPERATRIZ JAUREGUIER ASSISTANT COOK-C Work Phone: Cholecystectomy EMPERATRIZ DUKESETTER ASSISTANT COOK-C Work Phone: Comment on above: x 2 Cholecystectomy EMPERATRIZ DIAMOND FSTETTER ASSISTANT COOK-C Work Phone: Comment on above: x 2 Echocardiography EMPERATRIZ Wei OFSTETTER ASSISTANT COOK-C Work Phone: Comment on above: Date: 06/2021. stabl e Echocardiography EMPERATRIZ Wei OFSTETTER ASSISTANT COOK-C Work Phone: Comment on above: Date: 06/2021. stabl e Microscopic examinat ion of cervical Papanicolaou smear EMPERATRIZ JAUREGUIER ASSISTANT COOK-C Work Phone: Comment on above: Refused. 07/24/2019 Microscopic examinat ion of cervical Papanicolaou smear EMPERATRIZ CANALESTTER ASSISTANT COOK-C Work Phone: Comment on above: Refused. 07/24/2019 Operation on gallbladder MELANYI YOLANDA Nleson HOLÓPEZTETTER ASSISTANT COOK-C Work Phone: Operation on gallbladder MELANYI YOLANDA Nelson HOLÓPEZTETTER ASSISTANT COOK-C Work Phone: Repair of ventral hernia JES JOHNSON Comment on above: x2 Screening mammography NATASHA CANALESTTER ASSISTANT COOK-C Work Phone: Comment on above: Refused. 07/24/2019 Screening mammography NATASHA Nelson HOFSTETTER ASSISTANT COOK-C Work Phone: Comment on above: Refused. 07/24/2019 Plan of Treatment Date Care Activity Detail Author Start: 04-12-2025 [facility] visit, [facility]; ESTABLISHED PATIENT ROUTINE VISIT - [facility] Start: 12-Apr-2025 10:00-04:00 MD DAVON HINES Appointment Request [employer]. Start: 03-14-2025 Evaluation of diagnostic study results [facility] Start: 10-12-2024 Well child visit Medical; BLOOD PRESSURE CHECK - 6 month check-up [employer]. Start: 12-Oct-2024 09:00-05:00 MD DAVON HINES Appointment Request [employer]. Start: 03-31-2024 [facility] visit, [facility]; ESTABLISHED PATIENT ROUTINE VISIT - [place] [employer] Start: 31-Mar-2024 10:30 MARTA SALDIVAR Appointment Request [place] [employer] Start: 07-24-2019 Patient Education CARDIOMYOPATHY Indication: Dilated cardiomyopathy Start: 24-Jul-2019 Instruction Type: Patient Education [employer] Start: 01-16-2019 Patient Education CARDIOMYOPATHY Indication: Dilated cardiomyopathy Start: 16-Jan-2019 Instruction Type: Patient Education [employer] Start: 08-22-2018 [facility] CARDIAC ECHO W/ DOPPLERS ([id number]) ([id number]) Start: 22-Aug-2018 [facility] [employer] Start: 08-22-2018 Patient Education CARDIOMYOPATHY Indication: Dilated cardiomyopathy Start: 22-Aug-2018 Instruction Type: Patient Education [employer] Start: 10-28-2017 Patient Education CARDIOMYOPATHY Indication: Dilated cardiomyopathy Start: 28-Oct-2017 Instruction Type: Patient Education [employer] Start: 05-20-2017 Patient Education HYPERTENSION Indication: Benign hypertension Start: 20-May-2017 Instruction Type: Patient Education [employer] Start: 01-13-2017 Patient Education BRONCHITIS - PNEUMONIA INSTRUCTIONS Indication: Pneumonia, Community Acquired (Renamed from Community acquired pneumonia) Start: 13-Jan-2017 Instruction Type: Patient Education [employer] [facility] [facility] [employer]. Start: 04-16-2016 Patient Education HYPERTENSION Indication: Benign hypertension Start: 16-Apr-2016 Instruction Type: Patient Education [facility] [employer] [facility] [employer] [facility] [employer] Start: 05-17-2015 Patient Education CONTACT DERMATITIS Indication: Contact dermatitis, unspecified contact dermatitis type, unspecified trigger Start: 17-May-2015 Instruction Type: Patient Education [facility].; [employer] [facility] [employer] [facility]. Start: 01-04-2014 Patient Education HYPERTENSION Indication: Benign hypertension Start: 04-Jan-2014 Instruction Type: Patient Education [facility].; [employer] [facility] [employer] [facility] [employer]. 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 Comment on above: Refused. 08/05/2022 influenza virus vaccine, unspecified formulation EMPERATRIZ العليTETTER ASSISTANT COOK-C Work Phone: [facility] [employer] [facility] [employer] [facility] [employer]. Comment on above: Refused. 08/05/2022 Payers Date Payer Category Payer Unknown [id number] 2025 Self-pay 2025 Unknown [id number] 1965 Unknown [id number] Unknown [facility] Unknown 42 Unknown [id number] Unknown [id number] Social History Date Type Detail Facility Alcohol Use: Alcohol Use: ; N o Alcohol Use. [facility].; [facility] [employer] [facility]. Spouse's Employment Spouse's Employment [facility] [employer] [facility].; [facility] Tobacco use: Tobacco use: ; N ever smoker. [facility].; [facility] [employer] [facility]. Start: 1965 Female [facility] Start: 02-05-2025 Never smoked tobacco [facility] Evaluation note Note Date & Type Note Facility Evaluation note No assessment information availa [place] [place] [facility] Work Phone: Reason for referral (narrative) Note Date & Type Note Facility Reason for referral (narrative) No reason for referral information available [place] [employer] Work Phone: Summary Purpose Family History No Family History Records Found Brother (s) Status:Active Comments:4. In g ood health. Brother (s) Status:Active Comments:4. [employer] Daughter (s) Status:Active Comments:7. In g ood health. Father Status:Active Comments:born [birth year]-HTN Father Status:Active Comments:In good health. 74. [place] Mother Status:Active Comments:In stab le health. coronary artery disease Mother Status:Active Comments: d. 80.-HTN, CAD, CABG, [place] Sister (s) Status:Active Comments:2. [employer] Sister (s) Status:Active Comments:2. In g ood health. Son (s) Status:Active Comments:1. In g ood health. Brother (s) Status:Active Comments:4. In g ood health. Brother (s) Status:Active Comments:4. [employer] Daughter (s) Status:Active Comments:7. In g ood health. Father Status:Active Comments:born [birth year]-HTN Father Status:Active Comments:In good health. 74. [place] Mother Status:Active Comments:In stab le health. coronary artery disease Mother Status:Active Comments: d. 80.-HTN, CAD, CABG, AL Sister (s) Status:Active Comments:2. [employer] Sister (s) Status:Active Comments:2. In g ood health. Son (s) Status:Active Comments:1. In g ood health. Brother (s) Status:Active Comments:4. In g ood health. Brother (s) Status:Active Comments:4. [employer] Daughter (s) Status:Active Comments:7. In g ood health. Father Status:Active Comments:born [birth year]-HTN Father Status:Active Comments:In good health. 74. [place] Mother Status:Active Comments:In stab le health. coronary artery disease Mother Status:Active Comments: d. 80.-HTN, CAD, CABG, AL Sister (s) Status:Active Comments:2. [employer] Sister (s) Status:Active Comments:2. In g ood health. Son (s) Status:Active Comments:1. In g ood health. Brother (s) Status:Active Comments:4. In g ood health. Brother (s) Status:Active Comments:4. [employer] Daughter (s) Status:Active Comments:7. In g ood health. Father Status:Active Comments:born [birth year]-HTN Father Status:Active Comments:In good health. 74. SHOL[place] Mother Status:Active Comments:In stab le health. coronary artery disease Mother Status:Active Comments: d. 80.-HTN, CAD, CABG, AL Sister (s) Status:Active Comments:2. [employer] Sister (s) Status:Active Comments:2. In g ood health. Son (s) Status:Active Comments:1. In g ood health. Brother (s) Status:Active Comments:4. In g ood health. Brother (s) Status:Active Comments:4. [employer] Daughter (s) Status:Active Comments:7. In g ood health. Father Status:Active Comments:born [birth year]-HTN Father Status:Active Comments:In good health. 74. SHOLA Mother Status:Active Comments:In stab le health. coronary artery disease Mother Status:Active Comments: d. 80.-HTN, CAD, CABG, AL Sister (s) Status:Active Comments:2. A[employer]W Sister (s) Status:Active Comments:2. In g ood health. Son (s) Status:Active Comments:1. In g ood health. Brother (s) Status:Active Comments:4. In g ood health. Brother (s) Status:Active Comments:4. [employer] Daughter (s) Status:Active Comments:7. In g ood health. Father Status:Active Comments:born [birth year]-HTN Father Status:Active Comments:In good health. 74. SHOLA Mother Status:Active Comments:In stab le health. coronary artery disease Mother Status:Active Comments: d. 80.-HTN, CAD, CABG, AL Sister (s) Status:Active Comments:2. A[employer]W Sister (s) Status:Active Comments:2. In g ood health. Son (s) Status:Active Comments:1. In g ood health. Brother (s) Status:Active Comments:4. In g ood health. Brother (s) Status:Active Comments:4. [employer] Daughter (s) Status:Active Comments:7. In g ood health. Father Status:Active Comments:born [birth year]-HTN Father Status:Active Comments:In good health. 74. SHOLA Mother Status:Active Comments:In stab le health. coronary artery disease Mother Status:Active Comments: d. 80.-HTN, CAD, CABG, AL Sister (s) Status:Active Comments:2. A&W Sister (s) Status:Active Comments:2. In g ood health. Son (s) Status:Active Comments:1. In g ood health. Brother (s) Status:Active Comments:4. In g ood health. Brother (s) Status:Active Comments:4. [employer] Daughter (s) Status:Active Comments:7. In g ood health. Father Status:Active Comments:born [birth year]-HTN Father Status:Active Comments:In good health. 74. SHOLA Mother Status:Active Comments:In stab le health. coronary artery disease Mother Status:Active Comments: d. 80.-HTN, CAD, CABG, AL Sister (s) Status:Active Comments:2. A[employer]W Sister (s) Status:Active Comments:2. In g ood health. Son (s) Status:Active Comments:1. In g ood health. Brother (s) Status:Active Comments:4. In g ood health. Brother (s) Status:Active Comments:4. [employer] Daughter (s) Status:Active Comments:7. In g ood health. Father Status:Active Comments:born [birth year]-HTN Father Status:Active Comments:In good health. 74. SHOLA Mother Status:Active Comments:In stab le health. coronary artery disease Mother Status:Active Comments: d. 80.-HTN, CAD, CABG, AL Sister (s) Status:Active Comments:2. A&W Sister (s) Status:Active Comments:2. In g ood health. Son (s) Status:Active Comments:1. In g ood health. Brother (s) Status:Active Comments:4. In g ood health. Brother (s) Status:Active Comments:4. [employer] Daughter (s) Status:Active Comments:7. In g ood health. Father Status:Active Comments:born [birth year]-HTN Father Status:Active Comments:In good health. 74. SHOLA Mother Status:Active Comments:In stab le health. coronary artery disease Mother Status:Active Comments: d. 80.-HTN, CAD, CABG, AL Sister (s) Status:Active Comments:2. A&W Sister (s) Status:Active Comments:2. In g ood health. Son (s) Status:Active Comments:1. In g ood health. Brother (s) Status:Active Comments:4. In g ood health. Brother (s) Status:Active Comments:4. A&W Daughter (s) Status:Active Comments:7. In g ood health. Father Status:Active Comments:born [birth year]-HTN Father Status:Active Comments:In good health. 74. SHOLA Mother Status:Active Comments:In stab le health. coronary artery disease Mother Status:Active Comments: d. 80.-HTN, CAD, CABG, [place] Sister (s) Status:Active Comments:2. A&W Sister (s) Status:Active Comments:2. In g ood health. Son (s) Status:Active Comments:1. In g ood health. Brother (s) Status:Active Comments:4. In g ood health. Brother (s) Status:Active Comments:4. A&W Daughter (s) Status:Active Comments:7. In g ood health. Father Status:Active Comments:born [birth year]-HTN Father Status:Active Comments:In good health. 74. SHOLA Mother Status:Active Comments:In stab le health. coronary artery disease Mother Status:Active Comments: d. 80.-HTN, CAD, CABG, [place] Sister (s) Status:Active Comments:2. A&W Sister (s) Status:Active Comments:2. In g ood health. Son (s) Status:Active Comments:1. In [employer]. Relationship Condition Age at Onset Recorded Date/T mihai mother Myocardial infarction Unknown Sudden cardiac Unknown Brother (s) Status:Active Comments:4. In [employer]. Brother (s) Status:Active Comments:4. A&W Daughter (s) Status:Active Comments:7. In [employer]. Father Status:Active Comments:born [birth year]-HTN Father Status:Active Comments:In good health. 74. SHOLA Mother Status:Active Comments:In stab le health. coronary artery disease Mother Status:Active Comments: d. 80.-HTN, CAD, CABG, [place] Sister (s) Status:Active Comments:2. A&W Sister (s) Status:Active Comments:2. In [employer]. Son (s) Status:Active Comments:1. In [employer]. Advance Directives No Advanced Directives Records FoundNo Advanced Directives Records FoundNo Advanced Directives Records FoundNo Advanced Directives Records FoundNo Advanced Directives Records Found Chief Complaint and Reason for Visit Chief Complaint Admit Date CARDIOMYOPOTHY (DUMANDAN) March 14 2:00pm Additional Source Comments INFORMATION SOURCE (unrecogn ized section and content) DATE CREATED AUTHOR 03/17/2018 [facility] DATE CREATED AUTHOR AUTHOR'S ORGANIZ ATION 04/25/2021 [facility] ([place]) DATE CREATED AUTHOR AUTHOR'S ORGANIZ ATION 07/16/2021 [facility] DATE CREATED AUTHOR AUTHOR'S ORGANIZ ATION 01/22/2025 [facility] DATE CREATED AUTHOR AUTHOR'S ORGANIZ ATION 04/05/2025 [facility] Care Teams (unrecognized sec tion and content) Team Status: Active Member Role Status Dates Dr. Davon Hines MD Primary Care Provider Active Team Status: Inactive Member Role Status Dates Dr. Cj José MD Attending Provider Active S tart: March 14, 2025 End: March 14, 2025 Dr. Davon Hines MD Primary Care Provider Active Start: March 14, 2025 End: March 14, 2025 Dr. Davon Hines MD Referring Provider Active Start: March 14, 2025 End: March 14, 2025 Goals (unrecognized section and content) Goals may be documented in a n alternate section FOR RECORDS PERTAINING TO PATIENTS WHO ARE OR HAVE BEEN ENROLLED IN A CHEMICAL DEPENDENCY/SUBSTANCEABUSE PROGRAM, SOME INFORMATION MAY BE OMITTED. This clinical summary was aggregated from multiple sources. Caution should be exercised in using it in the provision of clinical care. This summary normalizes information from multiple sources, and as a consequence, information in this document may materially change the coding, format and clinical context of patient data. In addition, data may be omitted in some cases. CLINICAL DECISIONS SHOULD BE BASED ON THE PRIMARY CLINICAL RECORDS. [employer] [facility]. provides no warranty or guarantee of the accuracy or completeness of information in this document.
--- NOTE | 2025-04-07 07:12 | ECHOD_ITS ---
Reason For Study Reason For Study: DILATED CMP Procedure This was a 2D Doppler, Color Flow transthoracic echocardiogram. The study was technically difficult. Due to body habitus. Exam performed in department. Left Ventricle Normal LV size. Mild concentric left ventricular hypertrophy. The left ventricular ejection fraction is 50 %. No regional wall motion abnormalities noted. Right Ventricle Normal RV size. Normal systolic function. Atria Normal left atrium. Normal right atrium. Mitral Valve Normal mitral valve. Tricuspid Valve Normal tricuspid valve. Mild tricuspid valve insufficiency. Pulmonary artery systolic pressure is 21 mmHg. Aortic Valve Trisinus/trileaflet aortic valve. Pulmonic Valve Normal pulmonic valve. Great Vessels Normal aortic root. The pulmonary artery is normal size. Inferior vena cava collapse with respiration. Pericardium/Pleural No pericardial effusion. MMode/2D Measurements & Calculations LVIDd: 5.8 cm IVSd: 1.3 cm Ao root diam: 3.6 cm LVIDs: 4.6 cm LVPWd: 1.3 cm RVDd: 3.3 cm FS: 20.6 % LAV(MOD-bp): 76.1 ml LVAd ap4: 32.5 cm2 SV(MOD-sp4): 65.0 ml LAV(MOD-bp) Indexed: 35.1 ml/m2 LVLd ap4: 7.1 cm SI(MOD-sp4): 30.0 ml/m2 LAV(MOD-sp2): 67.0 ml EDV(MOD-sp4): 120.4 ml LAV(MOD-sp4): 80.6 ml EDV(sp4-el): 125.1 ml LVAs ap4: 19.7 cm2 LVLs ap4: 6.0 cm ESV(MOD-sp4): 55.5 ml ESV(sp4-el): 54.6 ml EF(MOD-sp4): 53.9 % EF(sp4-el): 56.3 % SV(sp4-el): 70.5 ml LA A4 area: 24.6 cm2 LA dimension(2D): 5.0 cm Time Measurements MV dec time: 0.21 sec Doppler Measurements & Calculations MV E max ainsley: 71.0 cm/sec Ao V2 max: 154.9 cm/sec LV V1 max: 93.7 cm/sec MV A max ainsley: 60.4 cm/sec Ao max P.7 mmHg LV V1 max P.5 mmHg MV E/A: 1.2 Ao V2 mean: 110.5 cm/sec LV V1 mean P.2 mmHg Ao mean P.4 mmHg LV V1 mean: 71.5 cm/sec Ao V2 VTI: 33.3 cm LV V1 VTI: 20.8 cm AV (velocity ratio): 0.62 PA V2 max: 115.8 cm/sec TR max ainsley: 214.4 cm/sec PA V2 mean: 82.8 cm/sec TR max P.4 mmHg ECHO/Echo Complete Interpretation Summary Normal LV size. Mild concentric left ventricular hypertrophy. Trisinus/trileaflet aortic valve. The left ventricular ejection fraction is 50 %. Ordering Physician: Cj José Referring Physician: Rahat Bright Performed By: Rachel Suarez, LUIS, RVT
== END | disposition home or self-care (01) ==
LOC: CVS 06:56
PROVIDERS: PCP Family Medicine; Referring Provider Internal Medicine Cardiovascular Disease; Visit Provider Internal Medicine Cardiovascular Disease
DX: I42.0 Dilated cardiomyopathy (principal)
CPT/HCPCS: 93306

== ENCOUNTER → 2025-05-14 | Outpatient (CLI) | payer OTHER, SELFPAY ==
[2025-05-14 13:06] LABS: Hematocrit 44.5 % (37-47); Hemoglobin 14.3 g/dL (12.0-15.0); Immature Granulocytes Count 0.050 X10^3/uL (0.0-0.0); Mean Corp Hgb Conc 32.1 g/dL (32-36); Mean Corpuscular Volume 93.9 fL (81-99); Mean Platelet Vol. 10.3 fl (6.2-12.0); NRBC Flagged by Analyzer 0 % (0-5); Platelet Count 249 K/mm3 (150-450); RBC Distribution Width CV 14.4 % (11.6-14.6); RBC Distribution Width SD 49.4 fl (35.1-43.9); Red Blood Count 4.74 M/mm3 (4.2-5.4); White Blood Count 9.3 K/mm3 (4.4-11.0)
[2025-05-14 14:08] LABS: Magnesium 2.5 mg/dL (1.5-2.2)
[2025-05-14 14:20] LABS: Anion Gap 12 (5-15); BUN 16 mg/dL (4-19); BUN/Creat Ratio 17.2 RATIO (10-20); Calcium,Total 9.6 mg/dL (7.6-11.0); Carbon Dioxide 23.7 mmol/L (21.0-32.0); Chloride 106 mmol/L (98-108); Glucose 117 mg/dL (70-99); Potassium 4.1 mmol/L (3.3-5.1)
== END | disposition home or self-care (01) ==
LOC: LAB 12:22
PROVIDERS: PCP Family Medicine; Referring Provider Student in an Organized Health Care Education/Training Program; Visit Provider Student in an Organized Health Care Education/Training Program
DX: I48.92 Unspecified atrial flutter (principal)
CPT/HCPCS: 36415; 80048; 83735; 84443; 85025

== ENCOUNTER → 2025-05-31 | Outpatient (CLI) | payer OTHER, SELFPAY ==
[2025-05-31 11:22] LABS: Anion Gap 10 (5-15); BUN 16 mg/dL (4-19); BUN/Creat Ratio 18.9 RATIO (10-20); Calcium,Total 9.7 mg/dL (7.6-11.0); Carbon Dioxide 26.6 mmol/L (21.0-32.0); Chloride 104 mmol/L (98-108); Glucose 135 mg/dL (70-99); Potassium 4.4 mmol/L (3.3-5.1)
[2025-05-31 11:44] LABS: Magnesium 2.3 mg/dL (1.5-2.2)
== END | disposition home or self-care (01) ==
LOC: LAB 09:47
PROVIDERS: Student in an Organized Health Care Education/Training Program; PCP Family Medicine; Referring Provider Nurse Practitioner Family; Visit Provider Nurse Practitioner Family
DX: I48.3 Typical atrial flutter (principal); I42.0 Dilated cardiomyopathy; I10 Essential (primary) hypertension; E78.5 Hyperlipidemia, unspecified; G47.33 Obstructive sleep apnea (adult) (pediatric); R00.2 Palpitations; R53.83 Other fatigue
CPT/HCPCS: 36415; 80048; 83735

== ENCOUNTER 2025-06-20 11:18 | Day surgery (SDC) | payer SELFPAY, OTHER ==
--- NOTE | 2025-06-08 08:34 | PCM.HP.BLA ---
History and Physical Date of Admission: 06/20/25 HPI History of Present Illness Details: Jazmine Kearns is a 59-year-old female who presents to the office today for follow-up for monitoring her cardiovascular health. She has a history of nonischemic cardiomyopathy initially diagnosed in 2017 with an echo which at that time demonstrating ejection fraction of 45-50%. She was placed on GDMT but it appears that she has discontinued those medications. She was taking care of her and was traveling to [place] for treatment for his multiple myeloma. Previous cardiac catheterization in 2017 demonstrated normal epicardial coronary arteries though it appears there was a tiny linear dissection of the RCA during angiography. The ejection fraction was noted to be 35-40%. She underwent evaluation for palpitations via event monitor that demonstrated an average heart rate of 69 bpm with minimum 49 and maximum 149 bpm. She was noted to have some nonsustained ventricular tachycardia. She was noted to have 17% ventricular ectopy and 10% SVE. She has been placed on guideline directed medical therapy including beta-kimberly, SGLT2 inhibitor, Entresto and spironolactone and has been compliant with this. She established with our office in February this year. Upon presentation today, patient reports she was diagnosed with walking pneumonia about 2 weeks ago and has been treated with antibiotics. She reports ongoing shortness of breath and cough despite antibiotics. She reports headaches that are rare and chronic without recent change. She feels her fatigue has worsened over the last couple of weeks. She feels fluttering in her chest that comes and goes and is noticed a couple times per week. This is reported to be similar to the palpitations she chronically has with her PVCs/PACs. She initially felt better with increase in carvedilol; however, has worsened over the last couple weeks. She finds herself SOB with activity as low as walking a short distance on a flat surface. Her SOB has significantly worsened over the past 2 weeks. She notices LE edema occasionally that is controlled and unchanged. She has felt nauseous occasionally over the past 2 weeks. Further ROS below. 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: No Is patient in pain?: No Allergies venom-wasp (wasp sting) Allergy (Severe, Verified 03/14/25 14:05) Angioedemaacetaminophen (From Percocet) Allergy (Intermediate, Verified 03/14/25 14:05) Nausea/Vom/Diarrheaoxycodone (From Percocet) Allergy (Intermediate, Verified 03/14/25 14:05) Nausea/Vom/Diarrhea Medications ?Medication ?Instructions ?Recorded ?Confirmed ?Type spironolactone 25 mg tablet 25 mg PO QDAY 02/05/25 05/14/25 History carvedilol 12.5 mg tablet 12.5 mg PO BID #120 tabs 03/14/25 05/14/25 Rx sacubitril 49 mg-valsartan 51 mg 1 tab PO DAILY 03/14/25 05/14/25 History tablet (Entresto) Held on 05/01/25. Instructions: Hypotension apixaban 5 mg tablet (Eliquis) 5 mg PO BID #180 tabs 05/14/25 05/14/25 Rx apixaban 5 mg tablet (Eliquis) 5 mg PO BID #60 tabs 05/14/25 05/14/25 Rx empagliflozin 25 mg tablet 25 mg PO QAM #90 tabs 05/14/25 05/14/25 Rx (Jardiance) digoxin 125 mcg (0.125 mg) tablet 125 mcg PO QDAY #30 tabs 05/15/25 05/15/25 Rx Ejection fraction %: 50 Have you fallen in the past year?: No PFSH Medical History SHOLA (obstructive sleep apnea) Hyperlipidemia Dilated cardiomyopathy Essential (primary) hypertension Palpitations Fatigue Surgical History History of cholecystectomy Hx of hernia repair History of total knee arthroplasty Family History Mother Myocardial infarction Sudden cardiac Social History Smoking Status: Never smoker alcohol intake: never substance use type: does not use ROS Const Const: Positive for fatigue and headache(s) (occasional); Negative for weakness or frequent falls Eyes Eyes: Negative for blurry vision ENT ENT: Positive for headache(s) (occasional); Negative for dizziness or Nosebleed/epistaxis Cardio Chest Pain: No Palpitations: Yes Edema: Bilateral and None Muscle aches with walking: None Resp Respiratory: Positive for SOB with activity; Negative for SOB at rest or SOB orthopnea\SOB lying down GI GI: Positive for nausea (walking pneumonia); Negative vomiting, heartburn, bright, red blood in stools or black,tarry stools : Negative for hematuria Neuro Neuro: Positive for headache(s) (occasional); Negative for dizziness, lightheadedness, near syncope, syncope, frequent falls, weakness or blurry vision Endo Endo: Positive for fatigue Cardiology Exam Const Appearance: cooperative, comfortable, no acute distress and well developed; Negative diaphoretic or ill appearing Nutritional Appearance: obese Orientation: alert and oriented x3 Ambulating without assistive device Head Head: normal to inspection, normocephalic and atraumatic Ears: hearing grossly normal bilaterally Nose: external nose normal and Negative epistaxis Face and Sinus: face symmetric Eyes General: appearance normal, both eyes and all related structures Eyelids: eyelids normal Conjunctivae: conjunctivae normal; Negative scleral icterus EOM: EOM intact bilaterally Neck Neck: no JVD Carotids: normal carotid upstroke; Negative bruit Neck Mass: Negative Neck mass Chest Chest inspection: normal respiratory effort; Negative respiratory distress, audible wheezes or tachypneic Auscultation: Bilateral: Clear to Auscultation Cardio Rate: regular rate Rhythm: regular rhythm Heart sounds: S1 normal and S2 normal; Negative rub, gallop or murmur GI GI: obese Neuro General: patient alert, patient awake, patient oriented x3 and moves all extremities Skin Skin: no rashes or lesions noted Extremities Pulses: Normal: Right Posterior Tibial Pulse, Left Posterior Tibial Pulse, Right Radial Pulse and Left Radial Pulse Lower Extremity Edema: None: Bilateral Psych Psychological: normal affect Assessment & Plan Assessment/Plan (1) Atrial flutter: QUALIFIERS: Atrial flutter type: typical Qualified Code(s): I48.3 - Typical atrial flutter PLAN: Patient is here for cardioversion. Follow-up will be based on procedure. (2) Dilated cardiomyopathy: PLAN: Patient is here for cardioversion. Follow-up will be based on procedure. (3) Palpitations: PLAN: Patient is here for cardioversion. Follow-up will be based on procedure.
[2025-06-19 09:02] VITALS: BMI 49.1
--- NOTE | 2025-06-20 11:42 | EKG12_ITS ---
Test Reason : POST DCCV Blood Pressure : */* mmHG Vent. Rate : 78 BPM Atrial Rate : 78 BPM P-R Int : 170 ms QRS Dur : 106 ms QT Int : 390 ms P-R-T Axes : 61 66 2 degrees QTcB Int : 444 ms Sinus rhythm with sinus arrhythmia with frequent and consecutive Premature ventricular complexes Cannot rule out Anterior infarct , age undetermined Abnormal ECG When compared with ECG of 20-Jun-2025 11:42, MANUAL COMPARISON REQUIRED DATA IS UNCONFIRMED Confirmed by Jorge Delgado ([id number]), editor news DEVAUGHN TREJO ([id number]) on 06/21/2025 8:12:27 AM Referred By: Cj José Confirmed By: Jorge Delgado
--- NOTE | 2025-06-20 13:50 | EKG12_ITS ---
Test Reason : AFIB Blood Pressure : */* mmHG Vent. Rate : 100 BPM Atrial Rate : * BPM P-R Int : * ms QRS Dur : 104 ms QT Int : 348 ms P-R-T Axes : * 37 -34 degrees QTcB Int : 448 ms Atrial fibrillation with premature ventricular or aberrantly conducted complexes Possible Anterior infarct (cited on or before 31-May-2025) Abnormal ECG When compared with ECG of 31-May-2025 09:16, Questionable change in initial forces of Septal leads Confirmed by Jorge Delgado ([id number]), purchasing expeditor DEVAUGHN TREJO ([id number]) on 06/21/2025 8:12:20 AM Referred By: Cj José Confirmed By: Jorge Delgado
--- NOTE | 2025-06-20 13:55 | PCM.OP.PRO2 ---
Non-invasive Procedural Procedure Information Date of Procedure: 06/20/25 Pre-Procedure Diagnosis: Atrial fibrillation Post-Procedure Diagnosis: Atrial fibrillation Procedure Performed:: DC cardioversion Procedure Time Out: 13:37 Procedure Start Time: 13:40 Procedure Stop Time: :43 Special Medications: Intravenous propofol 90 mg Description of procedure: Patient presented to the cardiac catheterization lab in the postabsorptive nonsedated state. Informed consent was obtained. The patient was seen by Dr. Spencer of the critical care division. 50 mg intravenous propofol was administered after the anterior posterior pads had been applied. 200 J of synchronized DC cardioversion energy were applied but was unsuccessful in restoring sinus rhythm. An additional 40 mg of intravenous propofol to a total of 90 mg of intravenous propofol was administered and then 300 J of synchronized DC biphasic cardioversion energy were applied with prompt reversal to sinus rhythm. Patient tolerated the procedure well. Procedure findings: Successful DC cardioversion from atrial fibrillation to sinus rhythm. Follow-up as per office protocol.
--- NOTE | 2025-06-20 13:57 | PRO.PCM_ITS ---
Procedures Pulmonary Pulmonary Procedures /Diagnostic Testin Con Sedation Non-invasive Procedural Procedure Information Date of Procedure: 06/20/25 Description of procedure: CONSCIOUS SEDATION REPORT DATE OF SERVICE: June 20, 2025 BRIEF HISTORY OF PRESENT ILLNESS: The patient is a 60-year-old female who presented to [facility] to undergo an elective outpatient cardioversion due to underlying atrial fib rillation. The patient has never previously undergone a cardioversion. She denied any prior anesthetic complications. The patient has a known history of obstructive sleep apnea and currently utilizes nocturnal PAP therapy. She is systemically anticoagulated on Eliquis. Her last surface echocardiogram demonstrated an ejection fraction of approximately 50%. PHYSICAL EXAMINATION: VITAL SIGNS: Reviewed and were acceptable. GENERAL: The patient is a female, in no apparent distress, speaking in full sentences. HEENT: Normocephalic, atraumatic. Mucous membranes are moist and pink. Good mouth opening noted. Trachea is midline. Good neck mobility. CHEST: S1, S2 irregularly irregular. No murmurs, rubs or gallops were noted. LUNGS: Clear to auscultation bilaterally without appreciable wheezes, rales or rhonchi. ABDOMEN: Soft, nontender, nondistended. Positive bowel sounds. EXTREMITIES: There is no clubbing, cyanosis or edema. ASA Class: II DESCRIPTION OF PROCEDURE: After confirmation of informed consent, the patient's anesthesia plan was reviewed in detail. Propofol was chosen. Risks and benefits were reviewed and the patient agreed to proceed. At 1337, the patient was given her first bolus of propofol. In total, throughout the entire procedure, the patient required a total of 90 mg of propofol to achieve an appropriate level of sedation in order to facilitate 2 attempts at cardioversion, the first at 200 J and the second at 300 J. Ultimately, the second attempted cardioversion was successful in restoring normal sinus rhythm. The patient was monitored until 1552, at which time, she returned to her baseline mental status and function. The patient tolerated the procedure well. COMPLICATIONS: None ESTIMATED BLOOD LOSS: None RECOMMENDATIONS: Okay to recover in usual fashion.
== END 2025-06-20 14:45 | disposition home or self-care (01) ==
PROVIDERS: PCP Family Medicine; Referring Provider Internal Medicine Cardiovascular Disease; Visit Provider Internal Medicine Cardiovascular Disease
DX: I48.91 Unspecified atrial fibrillation (principal); I48.3 Typical atrial flutter; I42.0 Dilated cardiomyopathy; Z79.01 Long term (current) use of anticoagulants; I10 Essential (primary) hypertension; E78.5 Hyperlipidemia, unspecified
CPT/HCPCS: 92960; 93005

== ENCOUNTER → 2025-08-02 | Outpatient (CLI) | payer OTHER, SELFPAY ==
[2025-08-02 10:42] LABS: Anion Gap 12 (5-15); BUN 17 mg/dL (4-19); BUN/Creat Ratio 20.2 RATIO (10-20); Calcium,Total 8.8 mg/dL (7.6-11.0); Carbon Dioxide 20.7 mmol/L (21.0-32.0); Chloride 108 mmol/L (98-108); Glucose 127 mg/dL (70-99); Potassium 4.2 mmol/L (3.3-5.1)
== END | disposition home or self-care (01) ==
LOC: LAB 09:24
PROVIDERS: PCP Family Medicine; Referring Provider Nurse Practitioner Gerontology; Visit Provider Nurse Practitioner Gerontology
DX: I48.3 Typical atrial flutter (principal)
CPT/HCPCS: 36415; 80048

== ENCOUNTER 2025-08-06 10:45 | Observation (INO) | payer OTHER, SELFPAY ==
[2025-08-06] VITALS (21 sets, daily range): BP systolic 94–139; BP diastolic 74–109; PULSE 70–126; RESP 12–26; TEMP 36–36.6; O2SAT 90–99; BMI 50.8; BMI 49.4
--- NOTE | 2025-08-06 10:59 | EKG12_ITS ---
Test Reason : O Blood Pressure : */* mmHG Vent. Rate : 90 BPM Atrial Rate : * BPM P-R Int : * ms QRS Dur : 114 ms QT Int : 386 ms P-R-T Axes : * -28 50 degrees QTcB Int : 472 ms Atrial fibrillation with premature ventricular or aberrantly conducted complexes Low voltage QRS Incomplete left bundle branch block Abnormal ECG Confirmed by Jorge Delgado ([id number]), make up editor PARAMJIT TIJERINA ([id number]) on 08/08/2025 10:53:27 AM Referred By: Confirmed By: Jorge Delgado
--- NOTE | 2025-08-06 11:03 | EKG12_ITS ---
Test Reason : Blood Pressure : */* mmHG Vent. Rate : 89 BPM Atrial Rate : 78 BPM P-R Int : 188 ms QRS Dur : 114 ms QT Int : 380 ms P-R-T Axes : 62 84 47 degrees QTcB Int : 462 ms Sinus rhythm with Premature atrial complexes Otherwise normal ECG +pvc Confirmed by Jorge Delgado ([id number]), science editor PARAMJIT TIJERINA ([id number]) on 08/07/2025 11:40:58 AM Referred By: Confirmed By: Jorge Delgado
[2025-08-06 11:19] LABS: Hematocrit 44.1 % (37-47); Hemoglobin 14.2 g/dL (12.0-15.0); Immature Granulocytes Count 0.070 X10^3/uL (0.0-0.0); Mean Corp Hgb Conc 32.2 g/dL (32-36); Mean Corpuscular Volume 93.4 fL (81-99); Mean Platelet Vol. 9.8 fl (6.2-12.0); NRBC Flagged by Analyzer 0 % (0-5); Platelet Count 186 K/mm3 (150-450); RBC Distribution Width CV 15.1 % (11.6-14.6); RBC Distribution Width SD 51.4 fl (35.1-43.9); Red Blood Count 4.72 M/mm3 (4.2-5.4); White Blood Count 10.8 K/mm3 (4.4-11.0)
--- NOTE | 2025-08-06 11:45 | RAD_ITS ---
PROCEDURE: CHEST PA AND LATERAL 08/06/2025 REASON FOR EXAM: CHEST PAIN TECHNIQUE: Procedure Code: RADCXR Modality: DX Procedure: CHEST PA AND LATERAL COMPARISON: None FINDINGS: Hardware: None Heart: Heart size is moderately enlarged. Mediastinum: The mediastinal contour is unremarkable. Lungs: The lungs are clear. Bones: Degenerative changes are identified within the thoracic spine. Loss of height of mid dorsal vertebrae. RAD/Chest PA and Lateral IMPRESSION: Cardiomegaly. No acute pulmonary infiltrate seen. Reading Location: [place] [id number]
[2025-08-06 11:50] LABS: Anion Gap 11 (5-15); BUN 19 mg/dL (4-19); BUN/Creat Ratio 23.7 RATIO (10-20); Calcium,Total 9.2 mg/dL (7.6-11.0); Carbon Dioxide 20.3 mmol/L (21.0-32.0); Chloride 105 mmol/L (98-108); Glucose 127 mg/dL (70-99); Potassium 4.1 mmol/L (3.3-5.1); Troponin T High Sensitivity 14 ng/L (<=14)
--- NOTE | 2025-08-06 12:11 | EX.ED.DYSGE1 ---
HPI History of Present Illness Chief Complaint: Dizziness Narrative Narrative: Patient is a 60-year-old female with past medical history of SHOLA, hyperlipidemia, dilated cardiomyopathy, hypertension, atrial fibrillation/flutter on Eliquis who presented to the emergency department with a chief complaint of lightheadedness and not feeling well. Patient notes that about 4 weeks ago she was cardioverted and notes that she been doing well until about 2 weeks ago. She states that she was on digoxin in the past however this was discontinued and states that she stopped this with her doctor secondary to her heart rate being better. States that she was recently started on flecainide and she was to have a follow-up EKG today and notes that before she left the house she was not feeling well and notes that it got worse while coming to the hospital. She states that she went up to the office to have a repeat EKG and notes that she felt worse and noted that her heart rate was elevated therefore they sent her to the emergency department to be further evaluated and they noted that her blood pressure was low as well. [facility] Medical History SHOLA (obstructive sleep apnea) Hyperlipidemia Dilated cardiomyopathy Essential (primary) hypertension Palpitations Fatigue Home Medications ?Medication ?Instructions ?Recorded ?Last Taken ?Type spironolactone 25 mg tablet 25 mg PO QDAY 02/05/25 08/06/25 History carvedilol 12.5 mg tablet 12.5 mg PO BID #120 tabs 03/14/25 08/06/25 Rx apixaban 5 mg tablet (Eliquis) 5 mg PO BID #90 tabs 06/07/25 08/06/25 Rx empagliflozin 25 mg tablet 25 mg PO QA [facility] 06/07/25 08/06/25 Rx ([facility]) Pharmacy delivery 4-5 weeks #45 tabs flecainide 50 mg tablet 50 mg PO Q12H #180 tabs 08/02/25 08/06/25 Rx vitamin B complex (Vitamins B 1 cap PO DAILY supplement 08/06/25 08/06/25 History Complex capsule) Allergy/AdvReac Type Severity Reaction Status Date / Time venom-wasp (wasp sting) Allergy Severe Angioedema Verified 08/06/25 10:48 oxycodone (From Percocet) Allergy Intermediate Nausea/Vom/ Verified 08/06/25 10:48 Diarrhea Family History Mother Myocardial infarction Sudden cardiac Surgical History History of cholecystectomy Hx of hernia repair History of total knee arthroplasty Social History Smoking Status: Never smoker alcohol intake: never substance use type: does not use ROS ROS ED ROS Narrative Constitutional: Complains of lightheadedness denies any fevers, chills, headaches, denies dizziness Eyes: Denies double vision Cardiovascular: Complaint of palpitations denies any chest pain Respiratory: States that she has a cough but states that when her heart is in A-fib this occurs and is not out of the ordinary denies shortness of breath Abdomen: Denies abdominal pain nausea vomit diarrhea : Denies urinary symptoms Neurological: Denies any numbness, tingling Musculoskeletal: Denies back pain Skin: Denies any rashes or lesions EXAM Physical Exam Narrative Exam Narrative: General: Patient is lying in bed rest comfortably did not appear to be in acute distress Head: Atraumatic, normocephalic Eyes: PERRL bilaterally, EOMI Black no conjunctival injection noted Neck: Soft, supple, trachea midline Cardiovascular: Patient has an irregular irregular rhythm and is tachycardic Respiratory: Clear to auscultation bilaterally Abdomen: No tenderness to palpation Extremities: Radial pulses +2/4 in the bilateral extremities, +5/5 strength noted in the bilateral upper and lower extremities Neurological: Patient following commands knew that she was at [facility] the year is 2024 Skin: Warm, dry, intact no rashes or lesions noted Const Vital Signs: 08/06/25 10:46 08/06/25 11:45 08/06/25 12:00 Temperature 96.8 F L Temperature Source Temporal Pulse Rate 120 H 89 126 H Pulse Rate [1 (Initial Baseline)] Pulse Rate [2] Pulse Rate [3] Pulse Rate [4] Pulse Rate [5] Respiratory Rate 20 H 16 16 Respiratory Rate [1 (Initial Baseline)] Respiratory Rate [2] Respiratory Rate [3] Respiratory Rate [4] Respiratory Rate [5] Blood Pressure 110/81 H 134/78 H 118/78 Blood Pressure [1 (Initial Baseline)] Blood Pressure [2] Blood Pressure [3] Blood Pressure [4] Blood Pressure [5] Blood Pressure Mean 90 96 91 Baseline BP Pulse Ox 97 98 99 Oxygen Delivery Method Room Air Room Air Room Air Oxygen Delivery Method [1 (Initial Baseline)] Oxygen Delivery Method [2] Oxygen Delivery Method [3] Oxygen Delivery Method [4] Oxygen Delivery Method [5] Oxygen Flow Rate (L/min) Oxygen Flow Rate (L/min) [1 (Initial Baseline)] Oxygen Flow Rate (L/min) [2] Oxygen Flow Rate (L/min) [3] Oxygen Flow Rate (L/min) [4] Oxygen Flow Rate (L/min) [5] EtCo2 - Document during CPR and with ROSC EtCo2 - Document during CPR and with ROSC [1 (Initial Baseline)] EtCo2 - Document during CPR and with ROSC [2] EtCo2 - Document during CPR and with ROSC [3] EtCo2 - Document during CPR and with ROSC [4] EtCo2 - Document during CPR and with ROSC [5] 08/06/25 13:13 08/06/25 14:00 08/06/25 14:30 Temperature 98 F Temperature Source Pulse Rate 112 H 121 H 112 H Pulse Rate [1 (Initial Baseline)] Pulse Rate [2] Pulse Rate [3] Pulse Rate [4] Pulse Rate [5] Respiratory Rate 25 H 18 16 Respiratory Rate [1 (Initial Baseline)] Respiratory Rate [2] Respiratory Rate [3] Respiratory Rate [4] Respiratory Rate [5] Blood Pressure 116/79 139/93 H 136/103 H Blood Pressure [1 (Initial Baseline)] Blood Pressure [2] Blood Pressure [3] Blood Pressure [4] Blood Pressure [5] Blood Pressure Mean 91 108 Baseline BP 136/103 Pulse Ox 92 98 95 Oxygen Delivery Method Room Air Room Air Nasal Cannula Oxygen Delivery Method [1 (Initial Baseline)] Oxygen Delivery Method [2] Oxygen Delivery Method [3] Oxygen Delivery Method [4] Oxygen Delivery Method [5] Oxygen Flow Rate (L/min) 2 Oxygen Flow Rate (L/min) [1 (Initial Baseline)] Oxygen Flow Rate (L/min) [2] Oxygen Flow Rate (L/min) [3] Oxygen Flow Rate (L/min) [4] Oxygen Flow Rate (L/min) [5] EtCo2 - Document during CPR and with ROSC 32 EtCo2 - Document during CPR and with ROSC [1 (Initial Baseline)] EtCo2 - Document during CPR and with ROSC [2] EtCo2 - Document during CPR and with ROSC [3] EtCo2 - Document during CPR and with ROSC [4] EtCo2 - Document during CPR and with ROSC [5] 08/06/25 14:36 08/06/25 14:50 08/06/25 14:50 Temperature Temperature Source Pulse Rate Pulse Rate [1 (Initial Baseline)] 88 Pulse Rate [2] 77 Pulse Rate [3] 70 Pulse Rate [4] 83 Pulse Rate [5] 83 Respiratory Rate Respiratory Rate [1 (Initial Baseline)] 16 Respiratory Rate [2] 20 H Respiratory Rate [3] 26 H Respiratory Rate [4] 22 H Respiratory Rate [5] 20 H Blood Pressure Blood Pressure [1 (Initial Baseline)] 139/109 H Blood Pressure [2] 136/103 H Blood Pressure [3] 117/99 H Blood Pressure [4] 106/94 H Blood Pressure [5] 110/87 H Blood Pressure Mean Baseline BP Pulse Ox 95 Oxygen Delivery Method Nasal Cannula Oxygen Delivery Method [1 (Initial Baseline)] Nasal Cannula Oxygen Delivery Method [2] Nasal Cannula Oxygen Delivery Method [3] Nasal Cannula Oxygen Delivery Method [4] Nasal Cannula Oxygen Delivery Method [5] Nasal Cannula Oxygen Flow Rate (L/min) 2 Oxygen Flow Rate (L/min) [1 (Initial Baseline)] 2 Oxygen Flow Rate (L/min) [2] 6 Oxygen Flow Rate (L/min) [3] 6 Oxygen Flow Rate (L/min) [4] 6 Oxygen Flow Rate (L/min) [5] 6 EtCo2 - Document during CPR and with ROSC 32 EtCo2 - Document during CPR and with ROSC [1 (Initial Baseline)] 25 EtCo2 - Document during CPR and with ROSC [2] 27 EtCo2 - Document during CPR and with ROSC [3] 35 EtCo2 - Document during CPR and with ROSC [4] 26 EtCo2 - Document during CPR and with ROSC [5] 32 08/06/25 15:00 08/06/25 15:01 08/06/25 15:06 Temperature Temperature Source Pulse Rate 85 91 75 Pulse Rate [1 (Initial Baseline)] Pulse Rate [2] Pulse Rate [3] Pulse Rate [4] Pulse Rate [5] Respiratory Rate 19 H 13 12 Respiratory Rate [1 (Initial Baseline)] Respiratory Rate [2] Respiratory Rate [3] Respiratory Rate [4] Respiratory Rate [5] Blood Pressure 101/80 101/80 112/83 H Blood Pressure [1 (Initial Baseline)] Blood Pressure [2] Blood Pressure [3] Blood Pressure [4] Blood Pressure [5] Blood Pressure Mean 87 Baseline BP Pulse Ox 96 93 98 Oxygen Delivery Method Nasal Cannula Nasal Cannula Nasal Cannula Oxygen Delivery Method [1 (Initial Baseline)] Oxygen Delivery Method [2] Oxygen Delivery Method [3] Oxygen Delivery Method [4] Oxygen Delivery Method [5] Oxygen Flow Rate (L/min) 3 6 3 Oxygen Flow Rate (L/min) [1 (Initial Baseline)] Oxygen Flow Rate (L/min) [2] Oxygen Flow Rate (L/min) [3] Oxygen Flow Rate (L/min) [4] Oxygen Flow Rate (L/min) [5] EtCo2 - Document during CPR and with ROSC 36 33 EtCo2 - Document during CPR and with ROSC [1 (Initial Baseline)] EtCo2 - Document during CPR and with ROSC [2] EtCo2 - Document during CPR and with ROSC [3] EtCo2 - Document during CPR and with ROSC [4] EtCo2 - Document during CPR and with ROSC [5] 08/06/25 15:11 08/06/25 15:16 08/06/25 15:47 Temperature Temperature Source Pulse Rate 89 93 78 Pulse Rate [1 (Initial Baseline)] Pulse Rate [2] Pulse Rate [3] Pulse Rate [4] Pulse Rate [5] Respiratory Rate 12 12 16 Respiratory Rate [1 (Initial Baseline)] Respiratory Rate [2] Respiratory Rate [3] Respiratory Rate [4] Respiratory Rate [5] Blood Pressure 114/89 H 94/80 125/87 H Blood Pressure [1 (Initial Baseline)] Blood Pressure [2] Blood Pressure [3] Blood Pressure [4] Blood Pressure [5] Blood Pressure Mean 99 Baseline BP Pulse Ox 96 96 94 Oxygen Delivery Method Nasal Cannula Room Air Room Air Oxygen Delivery Method [1 (Initial Baseline)] Oxygen Delivery Method [2] Oxygen Delivery Method [3] Oxygen Delivery Method [4] Oxygen Delivery Method [5] Oxygen Flow Rate (L/min) 3 0 Oxygen Flow Rate (L/min) [1 (Initial Baseline)] Oxygen Flow Rate (L/min) [2] Oxygen Flow Rate (L/min) [3] Oxygen Flow Rate (L/min) [4] Oxygen Flow Rate (L/min) [5] EtCo2 - Document during CPR and with ROSC 32 35 EtCo2 - Document during CPR and with ROSC [1 (Initial Baseline)] EtCo2 - Document during CPR and with ROSC [2] EtCo2 - Document during CPR and with ROSC [3] EtCo2 - Document during CPR and with ROSC [4] EtCo2 - Document during CPR and with ROSC [5] 08/06/25 16:00 08/06/25 17:16 Temperature Temperature Source Pulse Rate 79 78 Pulse Rate [1 (Initial Baseline)] Pulse Rate [2] Pulse Rate [3] Pulse Rate [4] Pulse Rate [5] Respiratory Rate 15 16 Respiratory Rate [1 (Initial Baseline)] Respiratory Rate [2] Respiratory Rate [3] Respiratory Rate [4] Respiratory Rate [5] Blood Pressure 110/93 H 121/96 H Blood Pressure [1 (Initial Baseline)] Blood Pressure [2] Blood Pressure [3] Blood Pressure [4] Blood Pressure [5] Blood Pressure Mean 98 104 Baseline BP Pulse Ox 95 97 Oxygen Delivery Method Room Air Room Air Oxygen Delivery Method [1 (Initial Baseline)] Oxygen Delivery Method [2] Oxygen Delivery Method [3] Oxygen Delivery Method [4] Oxygen Delivery Method [5] Oxygen Flow Rate (L/min) Oxygen Flow Rate (L/min) [1 (Initial Baseline)] Oxygen Flow Rate (L/min) [2] Oxygen Flow Rate (L/min) [3] Oxygen Flow Rate (L/min) [4] Oxygen Flow Rate (L/min) [5] EtCo2 - Document during CPR and with ROSC EtCo2 - Document during CPR and with ROSC [1 (Initial Baseline)] EtCo2 - Document during CPR and with ROSC [2] EtCo2 - Document during CPR and with ROSC [3] EtCo2 - Document during CPR and with ROSC [4] EtCo2 - Document during CPR and with ROSC [5] MDM MDM MDM Narrative Medical decision making narrative: Patient is a 60-year-old female who presents to the emergency department with a chief complaint of atrial fibrillation flutter lightheadedness and hypotension in the office. On the differential diagnose includes but not limited to unstable atrial fibrillation/flutter, electrolyte abnormality, ACS, CHF. Once workup is obtained reviewed she will be reevaluated. Discussed case with workforce planning analyst Dr. Delgado who saw her in the office and would prefer to be cardioverted and if she converts back to sinus rhythm she can be discharged home with instructions to follow-up in the office within the next 7 to 10 days. Patient CBC reviewed and showed no evidence leukocytosis white blood count 10.8, heme was 14.2, platelet count 186. Patient sodium is 136, potassium 4.1, creatinine 0.79. Patient troponin was 14 delta of 21 with a 4-hour troponin of 12 proBNP elevated 2426. Patient chest x-ray reviewed bolus of by radiology showed cardiomegaly with no other acute cardiopulmonary processes noted. Patient cardioverted here in the emergency department with synchronized cardioversion with 150 J went back into sinus rhythm with PVCs noted. Patient was observed here in the emergency department and she does not feel her normal self feels extremely weak had the require significant assistance to the bathroom and is not returning to her baseline like she did last time she was cardioverted. Family members feel that she should be observed overnight as well. On the monitor she is having questionable bigeminy as well therefore at this point in time we will discuss case with hospitalist for admission for observation to ensure that she returns to baseline from her sedation and has no further cardiac arrhythmias overnight. Discussed case with hospitalist Dr. Osorio who accept patient for admission. Updated family and patient they are agreeable this plan all course concerns answered. Lab Data Labs: Laboratory Results - last 24 hr 08/06/25 08/06/25 08/06/25 11:12 13:17 15:40 WBC 10.8 RBC 4.72 Hgb 14.2 Hct 44.1 MCV 93.4 MCH 30.1 MCHC 32.2 RDW Std Deviation 51.4 H RDW Coeff of Brad 15.1 H Plt Count 186 MPV 9.8 Immature Gran % (Auto) 0.600 Neut % (Auto) 69.6 Lymph % (Auto) 21.1 [place] % (Auto) 6.6 Eos % (Auto) 1.6 Baso % (Auto) 0.5 Absolute Neuts (auto) 7.5 Absolute Lymphs (auto) 2.28 Nucleated RBC % 0 Sodium 136 Potassium 4.1 Chloride 105 Carbon Dioxide 20.3 L Anion Gap 11 BUN 19 Creatinine 0.79 Est GFR (MDRD) Non-Af 85 BUN/Creatinine Ratio 23.7 H Glucose 127 H Calcium 9.2 Troponin T High Sens 14 Troponin T Hi Sens 2 Hr 21 H Troponin T Hi Sens 4Hr 12 NT pro BNP II 2426 H Radiography Diagnostic Testing: Clinical Impression(s) from Imaging Studies Chest X-Ray 08/06/25 11:45 IMPRESSION: Cardiomegaly. No acute pulmonary infiltrate seen. Reading Location: [place] [id number] Procedures Procedural Sedation 1 (Initial Baseline): Consent Signed: Yes Any Problems With Anesthesia: No You/Your family experience fever (hyperthermia) w/anesthesia: No Sedation medication: Fentanyl Dose: 10 Route: IV Total Moderate Sedation Units: 10 Maliampati Score: Class III ASA Classification: III Discharge Plan Dx/Rx/DC Orders Clinical Impression: Atrial fibrillation, Intractable nausea, Generalized weakness, Essential (primary) hypertension, Dilated cardiomyopathy, SHOLA (obstructive sleep apnea) Disposition Disposition: Acute Care [facility]
[2025-08-06 12:56] LABS: Pro- Brain NATRIURETIC PEPTIDE 2426 pg/mL (<=900)
[2025-08-06 14:08] LABS: Troponin T High Sens 2 HR 21 ng/L (<=14)
[2025-08-06] MEDS: fentaNYL 100 MCG/2 ML Ampul IV (14:23)
[2025-08-06 16:01] LABS: Troponin T High Sens 4 HR 12 ng/L (<=14)
--- NOTE | 2025-08-06 18:46 | PCM.HP.STD ---
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 Patient has a history of atrial fibrillation and underwent cardioversion and was placed on flecainide approximately week ago. Evaluation in the emergency room showed the patient to be in atrial fibrillation with a pulse rate of 120, her barrel line operator was contacted (Dr. Delgado) and he advised cardioverting the patient and observing the patient in the emergency room. Patient was given etomidate and fentanyl and underwent cardioversion with good success. Afterwards she had isolated PVCs but remained in sinus rhythm. Patient did complain of generalized weakness however she did not feel that she felt well enough to go home. Patient will be placed in observation status on PCU and monitored, I discussed the case with cardiology (Dr. Delgado) and he does not feel that he needs to see the patient while in the hospital unless her status changes. [facility] Medical History SHOLA (obstructive sleep apnea) Hyperlipidemia Dilated cardiomyopathy Essential (primary) hypertension Palpitations Fatigue Home Medications ?Medication ?Instructions ?Recorded ?Last Taken ?Type spironolactone 25 mg tablet 25 mg PO QDAY 02/05/25 08/06/25 History carvedilol 12.5 mg tablet 12.5 mg PO BID #120 tabs 03/14/25 08/06/25 Rx apixaban 5 mg tablet (Eliquis) 5 mg PO BID #90 tabs 06/07/25 08/06/25 Rx empagliflozin 25 mg tablet 25 mg PO QAM Awaiting [place] 06/07/25 08/06/25 Rx (Jardiance) Pharmacy delivery 4-5 weeks #45 tabs flecainide 50 mg tablet 50 mg PO Q12H #180 tabs 08/02/25 08/06/25 Rx vitamin B complex (Vitamins B 1 cap PO DAILY supplement 08/06/25 08/06/25 History Complex capsule) Allergy/AdvReac Type Severity Reaction Status Date / Time venom-wasp (wasp sting) Allergy Severe Angioedema Verified 08/06/25 10:48 oxycodone (From Percocet) Allergy Intermediate Nausea/Vom/ Verified 08/06/25 10:48 Diarrhea Family History Mother Myocardial infarction Sudden cardiac Surgical History History of cholecystectomy Hx of hernia repair History of total knee arthroplasty Social History Smoking Status: Never smoker alcohol intake: never substance use type: does not use ROS Constitutional Constitutional: Denies anorexia, change in weight, chills, fatigue, fever(s), night sweats or weakness Eyes Eyes: Denies blurry vision, change in vision, discharge from eye(s) or eye pain Cardiovascular Cardiovascular: Reports palpitations and rapid heart rate; Denies chest pain, claudication, dyspnea on exertion or edema Respiratory/Chest Respiratory/Chest: Denies cough, excessive phlegm production, hemoptysis, shortness of breath at rest or shortness of breath with exertion Gastrointestinal Gastrointestinal: Denies abdominal pain, coffee ground emesis, constipation, diarrhea, hematemesis, hematochezia, melena, nausea or vomiting Genitourinary Genitourinary: Denies dysuria, hematuria, urinary frequency, urinary hesitancy, urinary incontinence or urinary urgency Musculoskeletal Musculoskeletal: Denies back pain, joint pain, joint stiffness, joint swelling, myalgias or neck pain Neurologic Neurologic: Denies abnormal gait, abnormal speech, confusion, disequilibrium, dizziness, focal weakness, headache(s), loss of vision, numbness, other visual disturbances, paresthesias, syncope or tingling Psychiatric Psychiatric: Denies anxiety, cognitive impairment, depression, irritability, mood swings or suicidal ideation Endocrine Endocrinology: Denies change in body appearance, cold intolerance, excessive sweating, heat intolerance, polydipsia or polyuria Hematologic/Lymphatic Hematologic/Lymphatic: Denies none, anemia, easy bleeding, easy bruising or lymphadenopathy Allergic/Immunologic Allergic/Immunologic: Denies rhinitis, urticaria, eczemia or asthma Vital Signs Vital Signs Vital Signs: 08/06/25 10:46 08/06/25 11:45 08/06/25 12:00 Temperature 96.8 F L Temperature Source Temporal Pulse Rate 120 H 89 126 H Pulse Rate [1 (Initial Baseline)] Pulse Rate [2] Pulse Rate [3] Pulse Rate [4] Pulse Rate [5] Respiratory Rate 20 H 16 16 Respiratory Rate [1 (Initial Baseline)] Respiratory Rate [2] Respiratory Rate [3] Respiratory Rate [4] Respiratory Rate [5] Blood Pressure 110/81 H 134/78 H 118/78 Blood Pressure [1 (Initial Baseline)] Blood Pressure [2] Blood Pressure [3] Blood Pressure [4] Blood Pressure [5] Blood Pressure Mean 90 96 91 Baseline BP Pulse Ox 97 98 99 Oxygen Delivery Method Room Air Room Air Room Air Oxygen Delivery Method [1 (Initial Baseline)] Oxygen Delivery Method [2] Oxygen Delivery Method [3] Oxygen Delivery Method [4] Oxygen Delivery Method [5] Oxygen Flow Rate (L/min) Oxygen Flow Rate (L/min) [1 (Initial Baseline)] Oxygen Flow Rate (L/min) [2] Oxygen Flow Rate (L/min) [3] Oxygen Flow Rate (L/min) [4] Oxygen Flow Rate (L/min) [5] EtCo2 - Document during CPR and with ROSC EtCo2 - Document during CPR and with ROSC [1 (Initial Baseline)] EtCo2 - Document during CPR and with ROSC [2] EtCo2 - Document during CPR and with ROSC [3] EtCo2 - Document during CPR and with ROSC [4] EtCo2 - Document during CPR and with ROSC [5] 08/06/25 13:13 08/06/25 14:00 08/06/25 14:30 Temperature 98 F Temperature Source Pulse Rate 112 H 121 H 112 H Pulse Rate [1 (Initial Baseline)] Pulse Rate [2] Pulse Rate [3] Pulse Rate [4] Pulse Rate [5] Respiratory Rate 25 H 18 16 Respiratory Rate [1 (Initial Baseline)] Respiratory Rate [2] Respiratory Rate [3] Respiratory Rate [4] Respiratory Rate [5] Blood Pressure 116/79 139/93 H 136/103 H Blood Pressure [1 (Initial Baseline)] Blood Pressure [2] Blood Pressure [3] Blood Pressure [4] Blood Pressure [5] Blood Pressure Mean 91 108 Baseline BP 136/103 Pulse Ox 92 98 95 Oxygen Delivery Method Room Air Room Air Nasal Cannula Oxygen Delivery Method [1 (Initial Baseline)] Oxygen Delivery Method [2] Oxygen Delivery Method [3] Oxygen Delivery Method [4] Oxygen Delivery Method [5] Oxygen Flow Rate (L/min) 2 Oxygen Flow Rate (L/min) [1 (Initial Baseline)] Oxygen Flow Rate (L/min) [2] Oxygen Flow Rate (L/min) [3] Oxygen Flow Rate (L/min) [4] Oxygen Flow Rate (L/min) [5] EtCo2 - Document during CPR and with ROSC 32 EtCo2 - Document during CPR and with ROSC [1 (Initial Baseline)] EtCo2 - Document during CPR and with ROSC [2] EtCo2 - Document during CPR and with ROSC [3] EtCo2 - Document during CPR and with ROSC [4] EtCo2 - Document during CPR and with ROSC [5] 08/06/25 14:36 08/06/25 14:50 08/06/25 14:50 Temperature Temperature Source Pulse Rate Pulse Rate [1 (Initial Baseline)] 88 Pulse Rate [2] 77 Pulse Rate [3] 70 Pulse Rate [4] 83 Pulse Rate [5] 83 Respiratory Rate Respiratory Rate [1 (Initial Baseline)] 16 Respiratory Rate [2] 20 H Respiratory Rate [3] 26 H Respiratory Rate [4] 22 H Respiratory Rate [5] 20 H Blood Pressure Blood Pressure [1 (Initial Baseline)] 139/109 H Blood Pressure [2] 136/103 H Blood Pressure [3] 117/99 H Blood Pressure [4] 106/94 H Blood Pressure [5] 110/87 H Blood Pressure Mean Baseline BP Pulse Ox 95 Oxygen Delivery Method Nasal Cannula Oxygen Delivery Method [1 (Initial Baseline)] Nasal Cannula Oxygen Delivery Method [2] Nasal Cannula Oxygen Delivery Method [3] Nasal Cannula Oxygen Delivery Method [4] Nasal Cannula Oxygen Delivery Method [5] Nasal Cannula Oxygen Flow Rate (L/min) 2 Oxygen Flow Rate (L/min) [1 (Initial Baseline)] 2 Oxygen Flow Rate (L/min) [2] 6 Oxygen Flow Rate (L/min) [3] 6 Oxygen Flow Rate (L/min) [4] 6 Oxygen Flow Rate (L/min) [5] 6 EtCo2 - Document during CPR and with ROSC 32 EtCo2 - Document during CPR and with ROSC [1 (Initial Baseline)] 25 EtCo2 - Document during CPR and with ROSC [2] 27 EtCo2 - Document during CPR and with ROSC [3] 35 EtCo2 - Document during CPR and with ROSC [4] 26 EtCo2 - Document during CPR and with ROSC [5] 32 08/06/25 15:00 08/06/25 15:01 08/06/25 15:06 Temperature Temperature Source Pulse Rate 85 91 75 Pulse Rate [1 (Initial Baseline)] Pulse Rate [2] Pulse Rate [3] Pulse Rate [4] Pulse Rate [5] Respiratory Rate 19 H 13 12 Respiratory Rate [1 (Initial Baseline)] Respiratory Rate [2] Respiratory Rate [3] Respiratory Rate [4] Respiratory Rate [5] Blood Pressure 101/80 101/80 112/83 H Blood Pressure [1 (Initial Baseline)] Blood Pressure [2] Blood Pressure [3] Blood Pressure [4] Blood Pressure [5] Blood Pressure Mean 87 Baseline BP Pulse Ox 96 93 98 Oxygen Delivery Method Nasal Cannula Nasal Cannula Nasal Cannula Oxygen Delivery Method [1 (Initial Baseline)] Oxygen Delivery Method [2] Oxygen Delivery Method [3] Oxygen Delivery Method [4] Oxygen Delivery Method [5] Oxygen Flow Rate (L/min) 3 6 3 Oxygen Flow Rate (L/min) [1 (Initial Baseline)] Oxygen Flow Rate (L/min) [2] Oxygen Flow Rate (L/min) [3] Oxygen Flow Rate (L/min) [4] Oxygen Flow Rate (L/min) [5] EtCo2 - Document during CPR and with ROSC 36 33 EtCo2 - Document during CPR and with ROSC [1 (Initial Baseline)] EtCo2 - Document during CPR and with ROSC [2] EtCo2 - Document during CPR and with ROSC [3] EtCo2 - Document during CPR and with ROSC [4] EtCo2 - Document during CPR and with ROSC [5] 08/06/25 15:11 08/06/25 15:16 08/06/25 15:47 Temperature Temperature Source Pulse Rate 89 93 78 Pulse Rate [1 (Initial Baseline)] Pulse Rate [2] Pulse Rate [3] Pulse Rate [4] Pulse Rate [5] Respiratory Rate 12 12 16 Respiratory Rate [1 (Initial Baseline)] Respiratory Rate [2] Respiratory Rate [3] Respiratory Rate [4] Respiratory Rate [5] Blood Pressure 114/89 H 94/80 125/87 H Blood Pressure [1 (Initial Baseline)] Blood Pressure [2] Blood Pressure [3] Blood Pressure [4] Blood Pressure [5] Blood Pressure Mean 99 Baseline BP Pulse Ox 96 96 94 Oxygen Delivery Method Nasal Cannula Room Air Room Air Oxygen Delivery Method [1 (Initial Baseline)] Oxygen Delivery Method [2] Oxygen Delivery Method [3] Oxygen Delivery Method [4] Oxygen Delivery Method [5] Oxygen Flow Rate (L/min) 3 0 Oxygen Flow Rate (L/min) [1 (Initial Baseline)] Oxygen Flow Rate (L/min) [2] Oxygen Flow Rate (L/min) [3] Oxygen Flow Rate (L/min) [4] Oxygen Flow Rate (L/min) [5] EtCo2 - Document during CPR and with ROSC 32 35 EtCo2 - Document during CPR and with ROSC [1 (Initial Baseline)] EtCo2 - Document during CPR and with ROSC [2] EtCo2 - Document during CPR and with ROSC [3] EtCo2 - Document during CPR and with ROSC [4] EtCo2 - Document during CPR and with ROSC [5] 08/06/25 16:00 08/06/25 17:16 08/06/25 17:37 Temperature 97.8 F Temperature Source Pulse Rate 79 78 72 Pulse Rate [1 (Initial Baseline)] Pulse Rate [2] Pulse Rate [3] Pulse Rate [4] Pulse Rate [5] Respiratory Rate 15 16 16 Respiratory Rate [1 (Initial Baseline)] Respiratory Rate [2] Respiratory Rate [3] Respiratory Rate [4] Respiratory Rate [5] Blood Pressure 110/93 H 121/96 H 111/74 Blood Pressure [1 (Initial Baseline)] Blood Pressure [2] Blood Pressure [3] Blood Pressure [4] Blood Pressure [5] Blood Pressure Mean 98 104 86 Baseline BP Pulse Ox 95 97 94 Oxygen Delivery Method Room Air Room Air Oxygen Delivery Method [1 (Initial Baseline)] Oxygen Delivery Method [2] Oxygen Delivery Method [3] Oxygen Delivery Method [4] Oxygen Delivery Method [5] Oxygen Flow Rate (L/min) Oxygen Flow Rate (L/min) [1 (Initial Baseline)] Oxygen Flow Rate (L/min) [2] Oxygen Flow Rate (L/min) [3] Oxygen Flow Rate (L/min) [4] Oxygen Flow Rate (L/min) [5] EtCo2 - Document during CPR and with ROSC EtCo2 - Document during CPR and with ROSC [1 (Initial Baseline)] EtCo2 - Document during CPR and with ROSC [2] EtCo2 - Document during CPR and with ROSC [3] EtCo2 - Document during CPR and with ROSC [4] EtCo2 - Document during CPR and with ROSC [5] 08/06/25 18:00 08/06/25 18:36 Temperature 97.1 F L Temperature Source Temporal Pulse Rate 79 70 Pulse Rate [1 (Initial Baseline)] Pulse Rate [2] Pulse Rate [3] Pulse Rate [4] Pulse Rate [5] Respiratory Rate 15 16 Respiratory Rate [1 (Initial Baseline)] Respiratory Rate [2] Respiratory Rate [3] Respiratory Rate [4] Respiratory Rate [5] Blood Pressure 106/76 111/83 H Blood Pressure [1 (Initial Baseline)] Blood Pressure [2] Blood Pressure [3] Blood Pressure [4] Blood Pressure [5] Blood Pressure Mean 86 92 Baseline BP Pulse Ox 92 95 Oxygen Delivery Method Room Air Room Air Oxygen Delivery Method [1 (Initial Baseline)] Oxygen Delivery Method [2] Oxygen Delivery Method [3] Oxygen Delivery Method [4] Oxygen Delivery Method [5] Oxygen Flow Rate (L/min) Oxygen Flow Rate (L/min) [1 (Initial Baseline)] Oxygen Flow Rate (L/min) [2] Oxygen Flow Rate (L/min) [3] Oxygen Flow Rate (L/min) [4] Oxygen Flow Rate (L/min) [5] EtCo2 - Document during CPR and with ROSC EtCo2 - Document during CPR and with ROSC [1 (Initial Baseline)] EtCo2 - Document during CPR and with ROSC [2] EtCo2 - Document during CPR and with ROSC [3] EtCo2 - Document during CPR and with ROSC [4] EtCo2 - Document during CPR and with ROSC [5] Weight Weight: 122.5 kg Body Mass Index (BMI) 49.4 Physical Exam Const alert, oriented x3 and no apparent distress Constitutional Narrative: Patient has class III obesity General Appearance: cooperative, well kempt and well developed Orientation / Consciousness: awake, oriented to person, oriented to place and oriented to time HEENT normocephalic, head/scalp atraumatic, hearing grossly normal bilaterally and moist oral mucous membranes Eyes PERRL, EOMs intact bilaterally and conjunctivae normal Neck supple, no JVD, thyroid normal and no carotid bruits General: trachea midline Resp normal respiratory effort, no retractions, no use of accessory muscles and clear to auscultation bilaterally Auscultation: Negative for rales, rhonchi or wheezes Cardio regular rate, regular rhythm, S1 normal heart sound, S2 normal heart sound, no murmurs, no rub and no gallops Cardio Narrative: Occasional extrasystolic beats were noted on auscultation GI normal to inspection, nondistended, normoactive bowel sounds, soft to palpation, non-tender and non-distended Extremity no clubbing, cyanosis or edema Skin no rashes or lesions noted General Skin Exam: no breakdown Neuro oriented x3, CN's II-XII intact bilaterally, moves all extremities, no focal motor deficits and no sensory deficits noted Sensorium / Orientation: awake, alert, oriented to person, oriented to place and oriented to time Speech: speech normal Psych affect normal Results Lab / Micro Data 08/06/25 11:12 08/06/25 11:12 Labs: Laboratory Results - last 24 hr 08/06/25 11:12: WBC 10.8, RBC 4.72, Hgb 14.2, Hct 44.1, MCV 93.4, MCH 30.1, MCHC 32.2, RDW Std Deviation 51.4 H, RDW Coeff of Brad 15.1 H, Plt Count 186, MPV 9.8, Immature Gran % (Auto) 0.600, Neut % (Auto) 69.6, Lymph % (Auto) 21.1, [place] % (Auto) 6.6, Eos % (Auto) 1.6, Baso % (Auto) 0.5, Absolute Neuts (auto) 7.5, Absolute Lymphs (auto) 2.28, Nucleated RBC % 0, Sodium 136, Potassium 4.1, Chloride 105, Carbon Dioxide 20.3 L, Anion Gap 11, BUN 19, Creatinine 0.79, Est GFR (MDRD) Non-Af 85, BUN/Creatinine Ratio 23.7 H, Glucose 127 H, Calcium 9.2, Troponin T High Sens 14, NT pro BNP II 2426 H 08/06/25 13:17: Troponin T Hi Sens 2 Hr 21 H 08/06/25 15:40: Troponin T Hi Sens 4Hr 12 Imaging Radiology Impression Chest X-Ray 08/06/25 11:45 IMPRESSION: Cardiomegaly. No acute pulmonary infiltrate seen. Reading Location: [facility] Assessment & Plan Assessment/Plan (1) Atrial fibrillation: PLAN: Plan 1. Paroxysmal A-fib with RVR-converted to sinus rhythm-patient will be placed in observation status on PCU, she will be monitored on telemetry, she will remain on her present outpatient meds including flecainide. #2 generalized weakness-patient will be seen by PT and OT, she will need reevaluation tomorrow for possible discharge home versus continued hospital stay #3 chronic use of anticoagulant-patient is chronically on Eliquis due to history of paroxysmal A-fib #4 essential hypertension-patient will remain on her outpatient medications, her blood pressure medications will be adjusted as needed #5 class III obesity-complicates care, management, recovery, and prognosis Total clinical time spent by myself addressing the patient's medical issues, reviewing all of her data, and collaborating with patient's care team: 55-minutes Charges/Coding Visit Charges Inpatient E&M: 10746 Init Hosp L2
[2025-08-06] MEDS: APIXABAN 5 MG TABLET PO (19:02)
[2025-08-07 03:22] VITALS: BP 109/82; PULSE 77; RESP 16; TEMP 36.6; O2SAT 96
--- NOTE | 2025-08-07 07:10 | DCINST_ITS ---
Discharge Instructions DC O2, CPAP, BIPAP needs Home O2 Discharge instructions: No Dressing / Incision Discharge Activity: Return to Normal Activity Dressing / Incision Call your doctor if you observe: Fever of 101 or Higher, Shortness of breath, Dizziness, Fainting spells, Swelling in the ankles, Chest pain and Increased palpitations (irregular heartbeat) Follow Up Care Test Results: Test results from this visit will be discussed in further detail at your follow- up appointment, if applicable. Discharge Plan Admission Admit Date/Time: 08/06/25 17:31 Attending Provider: Michael Mack Primary Care Provider: Rahat Bright Consulting Providers: Gómez Osorio Discharge Orders/Prescriptions Prescriptions: Continued spironolactone 25 mg tablet 25 mg PO QDAY carvedilol 12.5 mg tablet 12.5 mg PO BID Qty: 120 3RF Rx Instructions: must administer with a meal/food flecainide 50 mg tablet 50 mg PO Q12H Qty: 180 3RF vitamin B complex [Vitamins B Complex] Capsule 1 cap PO DAILY Eliquis 5 mg tablet 5 mg PO BID Qty: 90 0RF Jardiance 25 mg tablet 25 mg PO QAM Qty: 45 0RF Referrals / Follow Up: Rahat Bright MD [Primary Care Provider, Medical] - Within 1 Week Disposition Disposition (needs filled in before D/C Order can be placed): Home, Self Care
[2025-08-07 07:11] VITALS: BP 119/91; PULSE 70; RESP 14; TEMP 36.3; O2SAT 93
[2025-08-07 08:38] VITALS: BP 119/91; PULSE 70; RESP 14; TEMP 36.3; O2SAT 93
[2025-08-07] MEDS: APIXABAN 5 MG TABLET PO (08:40)
--- NOTE | 2025-08-07 09:45 | PHA.DC.MR.R ---
Pharmacy [place] Med Reconciliation Pharmacy Service has performed discharge medication reconciliation for this patient. The patient's discharge medication list was reviewed for discrepancies and discrepancies were resolved. Medications at Discharge Home Medications spironolactone 25 mg tablet 25 mg PO QDAY 02/05/25 carvedilol 12.5 mg tablet 12.5 mg PO BID #120 tabs 03/14/25 apixaban 5 mg tablet (Eliquis) 5 mg PO BID #90 tabs 06/07/25 empagliflozin 25 mg tablet (Jardiance) 25 mg PO QAM Awaiting [facility] delivery 4-5 weeks #45 tabs 06/07/25 flecainide 50 mg tablet 50 mg PO Q12H #180 tabs 08/02/25 vitamin B complex (Vitamins B Complex capsule) 1 cap PO DAILY supplement 08/06/25
--- NOTE | 2025-08-07 09:47 | DS.PCM_ITS ---
Providers Date of Admission: 08/06/25 Primary Care Physician: Dr. Rahat Bright MD Reason For Visit: PAROXYSMAL A-FIB, GENERALIZED WEAKNESS Diagnosis Discharge Diagnosis (1) Atrial fibrillation: Status: Acute Code(s): I48.91 - Unspecified atrial fibrillation Medications at Discharge Home Medications spironolactone 25 mg tablet 25 mg PO QDAY 02/05/25 carvedilol 12.5 mg tablet 12.5 mg PO BID #120 tabs 03/14/25 apixaban 5 mg tablet (Eliquis) 5 mg PO BID #90 tabs 06/07/25 empagliflozin 25 mg tablet (Jardiance) 25 mg PO QAM Awaiting [facility] delivery 4-5 weeks #45 tabs 06/07/25 flecainide 50 mg tablet 50 mg PO Q12H #180 tabs 08/02/25 vitamin B complex (Vitamins B Complex capsule) 1 cap PO DAILY supplement 08/06/25 Hospital Course Operations None Procedures Cardioversion Summary of Care Provided Minutes Spent on Discharge: 31 Hospital Course: Per HPI: LEX JOHNSON, is a 60 F who presents to the emergency room at [facility] after being sent 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 Patient has a history of atrial fibrillation and underwent cardioversion and was placed on flecainide approximately week ago. Evaluation in the emergency room showed the patient to be in atrial fibrillation with a pulse rate of 120, her dietary worker was contacted (Dr. Delgado) and he advised cardioverting the patient and observing the patient in the emergency room. Patient was given etomidate and fentanyl and underwent cardioversion with good success. Afterwards she had isolated PVCs but remained in sinus rhythm. Patient did complain of generalized weakness however she did not feel that she felt well enough to go home. Patient will be placed in observation status on PCU and monitored, I discussed the case with cardiology (Dr. Delgado) and he does not feel that he needs to see the patient while in the hospital unless her status changes. Hospital course: 1. Paroxysmal A-fib with RVR status post cardioversion to normal sinus rhythm?[age]-year-old female presented to the hospital in A-fib with RVR, she is chronically anticoagulated therefore she was cardioverted in the emergency room successfully to normal sinus rhythm however postprocedure she was still significantly drowsy due to sedation and family requested overnight observation. This morning she is much better and would like to go home. I discussed with her and her family the plan for discharge and she expressed understanding the risk benefits of going home and would like to go home today. Will continue with all of her home medications including flecainide, Aldactone, Jardiance, Eliquis, and Coreg. I recommend outpatient follow-up with her PCP and cardiology. 2. Essential hypertension, hyperlipidemia are all chronic medical conditions which complicate her care. Her home medications were continued where appropriate Physical Exam Narrative General: Alert, Oriented x3, Cooperative, No apparent distress HEENT: Atraumatic, PERRLA, EOMI, Normocephalic Oral: Moist Mucosa Neck: Supple, No JVD Lungs: Clear to auscultation, Normal air movement, No rhonchi, No wheeze, No rales Cardiovascular: Regular rate, Regular Rhythm, Normal S1, Normal S2, No murmurs Abdomen: Soft, Non Tender, Non-Distended, No Hepato-splenomegaly Extremities: No edema, Capillary Refill Less than 3 Seconds Skin: No rashes, No breakdown Musculoskeletal: No Tenderness to Palpation of Joints or Extremities Neurological: No focal neurological deficits, moves all extremities Psych/Mental Status: Normal Affect, Appropriate Weight / BMI Weight Weight: 270 lb 1.06 oz Body Mass Index (BMI) 49.4 ABG / Lab / Microbiology Data 08/06/25 11:12 08/06/25 11:12 Laboratory: Laboratory Results - last 24 hr 08/06/25 11:12: WBC 10.8, RBC 4.72, Hgb 14.2, Hct 44.1, MCV 93.4, MCH 30.1, MCHC 32.2, RDW Std Deviation 51.4 H, RDW Coeff of Brda 15.1 H, Plt Count 186, MPV 9.8, Immature Gran % (Auto) 0.600, Neut % (Auto) 69.6, Lymph % (Auto) 21.1, Gibson % (Auto) 6.6, Eos % (Auto) 1.6, Baso % (Auto) 0.5, Absolute Neuts (auto) 7.5, Absolute Lymphs (auto) 2.28, Nucleated RBC % 0, Sodium 136, Potassium 4.1, Chloride 105, Carbon Dioxide 20.3 L, Anion Gap 11, BUN 19, Creatinine 0.79, Est GFR (MDRD) Non-Af 85, BUN/Creatinine Ratio 23.7 H, Glucose 127 H, Calcium 9.2, Troponin T High Sens 14, NT pro BNP II 2426 H 08/06/25 13:17: Troponin T Hi Sens 2 Hr 21 H 08/06/25 15:40: Troponin T Hi Sens 4Hr 12 Radiography Diagnostic Testing: Radiology Impression Chest X-Ray 08/06/25 11:45 IMPRESSION: Cardiomegaly. No acute pulmonary infiltrate seen. Reading Location: [place] [id number] D/C Instructions Call your doctor if you observe: Fever of 101 or Higher, Shortness of breath, Dizziness, Fainting spells, Swelling in the ankles, Chest pain and Increased palpitations (irregular heartbeat) DC O2, CPAP, BIPAP Needs Home O2 Discharge instructions: No Meaningful Use Info Meaningful Use Meaningful Use Diagnoses (Choose all that apply): None applicable Discharge Plan Admission Admit Date/Time: 08/06/25 17:31 Attending Provider: Michael Mack Primary Care Provider: Rahat Bright Consulting Providers: Gómez Osorio Discharge Orders/Prescriptions Prescriptions: Continued spironolactone 25 mg tablet 25 mg PO QDAY carvedilol 12.5 mg tablet 12.5 mg PO BID Qty: 120 3RF Rx Instructions: must administer with a meal/food flecainide 50 mg tablet 50 mg PO Q12H Qty: 180 3RF vitamin B complex [Vitamins B Complex] Capsule 1 cap PO DAILY Eliquis 5 mg tablet 5 mg PO BID Qty: 90 0RF Jardiance 25 mg tablet 25 mg PO QAM Qty: 45 0RF Referrals / Follow Up: Rahat Bright MD [Primary Care Provider, Medical] - Within 1 Week Disposition Disposition (needs filled in before D/C Order can be placed): Home, Self Care Charges/Coding Visit Charges Inpatient E&M: 17985 Disch Hosp >30min
--- NOTE | 2025-08-07 10:22 | CASEMGMT ---
Patient has order for discharge. RN CM in to discuss needs at discharge. Patient denies needs or help at discharge. Patient had no further questions or concerns.
== END 2025-08-07 10:25 | disposition home or self-care (01) ==
LOC: ED 17:25 → PCU 17:50
PROVIDERS: Admitting Provider Internal Medicine; Emergency Provider Emergency Medicine; PCP Family Medicine; Visit Provider Family Medicine
DX: I48.0 Paroxysmal atrial fibrillation (principal); I48.92 Unspecified atrial flutter; I42.0 Dilated cardiomyopathy; E66.813 Obesity, class 3; Z68.42 Body mass index [BMI] 45.0-49.9, adult; R53.1 Weakness; I10 Essential (primary) hypertension; I49.3 Ventricular premature depolarization; E78.5 Hyperlipidemia, unspecified; Z79.01 Long term (current) use of anticoagulants; G47.33 Obstructive sleep apnea (adult) (pediatric); Z79.899 Other long term (current) drug therapy
CPT/HCPCS: 71046; 80048; 83880; 84484; 85025; 92960; 93005; 96374; 96375; 99152; 99221; 99285; A4216; G0378; J2405